=== PATIENT | male | born 1950 | race Caucasian/White ===

== ENCOUNTER 2018-08-04 15:14 | Emergency (ER) | payer MEDICARE ==
[~2018-08-04] VITALS: Ht 177.8 cm; Wt 99.8 kg
[~2018-08-04 15:14] MED LIST: BUSPAR10 MG PO; C-10001000 MG PO; CELEXA20 MG PO; CIPRO500 MG PO; FERROUS SULFAT325 MG PO; GLUCOPHAGE500 MG PO; LIPITOR40 MG PO; MS CONTIN30 MG PO; NEURONTIN 300300 MG PO; OXYCODONE HCL10 MG PO; PROMOD LIQUID P30 M1 PO; THERAGRAN M [BK1 TAB PO; VIC-FORTE CAPSUL1 MG PO; VITAMIN B-121000 MCG PO; ZINC-220220 MG PO; ZOFRAN ODT4 MG/UDTAB PO; ZOFRAN4 MG PO
[2018-08-04 15:18] VITALS: Ht 177.8 cm; Wt 99.8 kg
[2018-08-04] MEDS ORDERED: VIBRAMYCIN 100100 MG PO (17:59)
[2018-08-04] MEDS ORDERED: VOLTAREN75 MG PO (17:59)
[2018-08-04 19:25] VITALS: BP 105/74
== END 2018-08-04 18:10 ==
LOC: D.ER 15:14
DX: S91.111A Laceration without foreign body of right great toe without damage to nail, initial encounter (principal); W26.8XXA Contact with other sharp object(s), not elsewhere classified, initial encounter; Y93.89 Activity, other specified; Y92.019 Unspecified place in single-family (private) house as the place of occurrence of the external cause; E11.9 Type 2 diabetes mellitus without complications; F17.200 Nicotine dependence, unspecified, uncomplicated

== ENCOUNTER 2018-09-24 22:12 | Inpatient (IN) | payer OTHER ==
[~2018-09-24] VITALS: Ht 177.8 cm; Wt 113.4 kg
[~2018-09-24 22:12] MED LIST changes: +VIBRAMYCIN 100100 MG PO; +VOLTAREN75 MG PO
--- NOTE | 2018-09-24 22:50 | NUR ---
PATIENT HAS MULTIPLE DECUBITUS ULCERS ON THE SACRAL AREA. THE AREA DOES HAVE WOUND GAUZE IN PLACE.
--- NOTE | 2018-09-24 22:52 | NUR ---
FLUSHED CATHETER, FLUSHES EASILY, LEAKS AROUND THE CATHETER INSERTION AREA. DOES NOT DRAW BACK
[2018-09-24 23:30] VITALS: BP 110/69
[2018-09-24 23:39] LABS: HEMATOCRIT 33.6 % (42.0-54.0); HEMOGLOBIN 10.2 g/dL (13.5-17.5); LYMPHOCYTES 18.9 % (15-50); MCH 22.4 pg (26.0-34.0); MCHC 30.4 g/dL (31.0-37.0); MCV 73.7 fL (80.0-100.0); MEAN PLATELET VOLUME 8.4 fL (7.4-10.4); NEUTROPHILS 72.4 % (40-80); RBC 4.56 10x6/uL (4.20-6.10); RDW 16.8 % (11.5-14.5); WBC 12.1 10x3/uL (4.8-10.8)
[2018-09-24 23:40] LABS: PLATELET COUNT 343 10x3/uL (130-400)
[2018-09-24 23:52] LABS: ALBUMIN 2.2 g/dL (3.4-5.0); ALKALINE PHOSPHATASE 86 U/L (46-116); ALT (SGPT) 16 U/L (10-68); BILIRUBIN - TOTAL 0.16 mg/dL (0.2-1.3); CALC OSMOLALITY 284 mosm/kg (275-300); CALCIUM 7.9 mg/dL (8.5-10.1); CARBON DIOXIDE 27.5 mmol/L (21.0-32.0); CHLORIDE - SERUM 103 mmol/L (98-107); CREATININE - SERUM 0.8 mg/dL (0.6-1.3); GLUCOSE 129 mg/dL (74-106); POTASSIUM - SERUM 4.1 mmol/L (3.5-5.1); PROTEIN - SERUM 6.7 g/dL (6.4-8.2); SODIUM 139 mmol/L (136-145); UREA NITROGEN 26 mg/dL (7-18); eGFR NON AFRICAN AMERICAN > 90 mL/min (90-120)
[2018-09-25] VITALS (9 sets, daily range): BP systolic 110–130; BP diastolic 64–81; BMI 35.9; BMI 35.8
--- NOTE | 2018-09-25 00:02 | NUR ---
PATIENT GIVEN MILK AND SANDWICH TRAY, LIGHTS DIMMED. NO OTHER NEEDS NOTED.
--- NOTE | 2018-09-25 01:00 | NUR ---
PATIENT IS AWAKE AND ALERT, HE ADJUST HIMSELF IN THE BED AND IS LYING ON HIS L SIDE AT THIS TIME. PATIENT UPDATED ON PLAN OF CARE AND DELAYS IN CARE. WILL CONTINUE TO MONITOR.
--- NOTE | 2018-09-25 02:00 | NUR ---
SPOKE WITH USMAN ZELAYA AT THE [facility] UPDATED ON PLAN OF CARE AND DELAYS IN CARE. CALL BACK NUMBER [phone]
--- NOTE | 2018-09-25 04:49 | NUR ---
REC'D FROM ER DEPT PER STRETCHER TO ROOM 2219 A 68 Y/O W/M PER SERVICES DR. SANTIAGO W/DX CATHETER MALFUNCTION ALLERGY=HYDROCONDONE/TYLENOL/CUCUMBER. IV PATENT LEFT AC SALINE LOCKED. BROWN TO BEDSIDE DRAINAGE COLOSTOMY INTACT WITH BROWN STOOL BAG WAS EMPTIED. LARGE 10X10 DECUB NOTED TO SACRUM/BUTTOCK AND SMALL PRESSURE SORE TO BOTTOM RT FOOT DRSG INTACT. ASSESSMENT PER ADMIT PACKET.
--- NOTE | 2018-09-25 06:32 | NUR ---
MEDS GIVEN PER FLOWSHEET. ZUEX=[id number] NO COVERAGE NEEDED.
--- NOTE | 2018-09-25 17:30 | NUR ---
PATIENT WITH NO NEEDS VOICED, OSTOMY CARE BEING PROVIDED BY CONDUIT INSTALLER ASSIGNED
--- NOTE | 2018-09-25 17:56 | MORECARE ---
CASE MANAGEMENT DISCHARGE SUMMARY PATIENT: CAROL PUCKETT UNIT: [id number] ADM DATE: 09/25/18 AGE: 68 : 48 SEX: M ROOM/BED: D.2219 AUTHOR: EDWAR STODDARD PHYSICIAN: REFERRING PHYSICIAN: ALBERTO SANTIAGO MD DATE OF SERVICE: 09/25/18 Discharge Plan Patient Name: CAROL PUCKETT Facility: [facility]:[place] : 1950 Planned Disposition: Anticipated Discharge Date: Discharge Date: Expected LOS: Initial Reviewer: [email or web address] Initial Review Date: 09/25/2018 Generated: 09/25/18 6:56 pm Comments DCP- Discharge Planning Updated by [email or web address]: Arianna Fraser on 09/25/18 4:[address] WHITT explained and copy given to patient Coverage Notice Reviewer: [id number] - Arianna Fraser Notice Issued Date-Time: 09/25/2018 17:45 Notice Type: Medicare Outpatient Observation Notice Notice Delivered To: Patient 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 History Name: Delivery Method: HAND - Hand Delivered Molly Days: Prior Verbal Notification: Recipient Understood Notice: Yes Recipient Signature: Yes Med Rec Note Co-signed by Attending: Coverage Notice Comment: Patient Name: CAROL PUCKETT Page 30140 at 1756 All edits/amendments must be made on the electronic document DICTATION DATE: 09/25/181755 SEISMIC SURVEY ASSISTANT: SIDDHARTHA 09/25/181755 RPT#: [id number] DC DATE: STATUS: ADM IN [facility] [address] [place] [address] END OF REPORT
--- NOTE | 2018-09-25 18:51 | NUR ---
CHANGED DRESSING TO PT SACRAL WOUNDS. WOUNDS ARE 5CM DEEP X 9CM LENGTH X 13CM WIDTH. CLEASENED AREA WITH WOUND CLEANNER, PAT DRY. THERE IS ESCAR PRESENT IN THE WOUND BED. WOUND EDGES AREA VERY PALE PINK-WHITE IN COLOR. DOES NOT APPEAR TO HAVE GOOD CIRCULATION TO THE AREA. PACKED WITH DAMP 4X4 IN NORMAL SALINE. COVERED WITH ABD PAD AND MEDIPORE TAPE. ENCOURAGED PT TO TURN FROM SIDE TO SIDE OFTEN POSSIBLE. PT ALSO HAS A SUPRA-PUBIC CATH THAT WAS REPLACED BY DR RUIZ TODAY. STILL EXPIERENCING LEAKING FROM AROUND THE CATH. CLEANED AREA WELL AND COVERED WITH ABD IN EFFORT TO KEEP SACRAL WOUNDS DRY. PT ALSO HAS A COLOSTOMY TO THE LLQ. CHANGED THE APPLIANCE TODAY. STOMA WNL. TOLERATED ALL CARE WELL, MINIMAL COMPLAINT OF ABD PAIN WHEN ROLLED ON SIDE. RELIEVED WHEN ROLLED BACK OVER. WILL CONTINUE TO MONITOR.
[2018-09-26 00:34] VITALS: BP 119/56
[2018-09-26 04:50] LABS: BASOPHILS 0.1 % (0-2); EOSINOPHILS 4.2 % (0-7); HEMATOCRIT 31.2 % (42.0-54.0); HEMOGLOBIN 9.1 g/dL (13.5-17.5); IMMATURE GRANULOCYTES 0.4 % (0-5); LYMPHOCYTES 17.5 % (15-50); MCH 21.6 pg (26.0-34.0); MCHC 29.2 g/dL (31.0-37.0); MCV 73.9 fL (80.0-100.0); MEAN PLATELET VOLUME 9.6 fL (7.4-10.4); MONOCYTES 7.8 % (2-11); PLATELET COUNT 314 10x3/uL (130-400); RBC 4.22 10x6/uL (4.20-6.10); RDW 17.7 % (11.5-14.5); WBC 11.2 10x3/uL (4.8-10.8)
[2018-09-26 05:02] LABS: CALC OSMOLALITY 280 mosm/kg (275-300); CALCIUM 7.5 mg/dL (8.5-10.1); CARBON DIOXIDE 25.3 mmol/L (21.0-32.0); CHLORIDE - SERUM 104 mmol/L (98-107); CREATININE - SERUM 0.7 mg/dL (0.6-1.3); GLUCOSE 102 mg/dL (74-106); POTASSIUM - SERUM 4.2 mmol/L (3.5-5.1); SODIUM 140 mmol/L (136-145); eGFR NON AFRICAN AMERICAN > 90 mL/min (90-120)
[2018-09-26 05:08] LABS: UREA NITROGEN 18 mg/dL (7-18)
[2018-09-26 09:13] VITALS: BP 100/54
[2018-09-26 09:49] VITALS: Ht 177.8 cm; Wt 113.4 kg
--- NOTE | 2018-09-26 10:47 | NUR ---
PT LYING IN BED, ASSISTED SEE WHEELER MADDY WITH TURNING PT TO LOOK AT WOUNDS ON BACKSIDE AND ON TOE, PT STATED THE WOINDS HAVE BEEN THERE A WHILE AND UNCERTAIN ON WHAT NH IS DOING FOR THEM, PT SP CATHETER IS ALSO LEAKING, CHANGED PT PADDING CONTINUE WITH PLAN OF CARE, PT VOICED NO NEEDS AT THIS TIME, CL IN REACH
[2018-09-26 15:16] VITALS: BP 100/54
[2018-09-26 17:52] VITALS: BP 116/57
--- NOTE | 2018-09-26 19:01 | NUR ---
PT LYING ON SIDE, CHANGED PT DRESSING ON BACKSIDE, PACKED WITH 4X4 AND MEPLIEX DRESSING OVER IT. PT STATED PAIN IS AT A 6 DECLINED PAIN MEDS AT THIS TIME, NO OTHER NEEDS VOICED, CONTINUE WITH CHAYITO OF CARE
[2018-09-26 20:00] VITALS: BP 107/55
[2018-09-27] VITALS (8 sets, daily range): BP systolic 109–157; BP diastolic 59–70
--- NOTE | 2018-09-27 06:41 | NUR ---
MEDS GIVEN PER MAR. NO CHANGES IN ASSESSMENT
--- NOTE | 2018-09-27 07:20 | NUR ---
PT RESTING IN BED, EYES OPEN. NO C/O PAIN. NO S/S OF ACUTE DISTRESS NOTED. PT PARAPLEGIC. PT ADMITTED WITH CATHETER MALFUNCTION. SUPRAPUBIC BROWN CATHETER PRESENT, LEAKING TUBE. IV TO LEFT AC, SITE PATENT WITHOUT REDNESS OR SWELLING. NS INFUSING @ 125. PT ACHS BLOOD SUGAR. STAGE 4 PRESSURE ULCER TO BUTTOCKS, BLACK ESCAR NOTED. STAGE 1-2 PRESSURE ULCER TO RIGHT FOOT, DRESSING CDI. PT DENIES ANYTHING FURTHER AT THIS TIME. CALL LIGHT IN REACH. WILL CONTINUE TO MONITOR.
--- NOTE | 2018-09-27 11:55 | NUR ---
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 Bone exposed. Foul odor. Edges have black stringy necrotic tissue. Pt is scheduled for OR debridement tomorrow (09/28) with Dr. Yung. Cleansed wound with wound final cleaner andpacked 4x4s moistened with normal saline into wound bed. Covered with dry 4x4s and ABD pad and secured with medipore tape. Right plantar foot has an open ulcer measuring 1.5cm x 2cm just under the great toe. It was cleansed and covered with dry dressing. Recommendations: -Daily dressing changes along with as needed if soiled/dislodged -Turn/reposition every 2 hours (side to side) -Bridge heels as prevention / heel protecters -Air overlay mattress PT has suprapubic cath, colostomy, DMII and paraplegia. Wound care will continue to monitor.
--- NOTE | 2018-09-27 12:34 | NUR ---
NUTRITION F/U DIABETIC DIET WITH 75% INTAKE BREAKFAST. WILL ADD GLUCERNA SHAKE TO BREAKFAST AND LUNCH MEALS. RD FOLLOWING
--- NOTE | 2018-09-27 12:38 | NUR ---
PT IS RESTING IN BED WITH EYES OPEN. RESPIRATIONS ARE EVEN AND UNLABORED. PT IS ON ROOM AIR. PT REPORTS PAIN 6/10 TO BILATERAL LOWER EXTREMITIES. PT WITH LLQ COLOSTOMY AND BROWN CATHETER DRAINING FREELY WITH LIGHT YELLOW FLUID NOTED IN COLLECTION BAG. SCDS ARE ON BILATERAL LOWER EXTREMITIES. PT DENIES FURTHER NEEDS AT THIS TIME. BED IS IN THE LOWEST POSITION. CALL LIGHT AND BEDSIDE TABLE ARE WITHIN REACH.
--- NOTE | 2018-09-27 19:00 | NUR ---
REPORT RECEIVED AND CARE OF PT ASSUMED. PT LYING IN LOW BUCIO'S POSITION WITH EYES CLOSED. IV IN LEFT AC PATENT WITH NS INFUSING AT 125 ML / HR. SUPRA PUBIC CATHETER DRAINING TO GRAVITY WITH YELLOW URINE IN COLLECTION BAG. WILL MONITOR FOR NEEDS.
--- NOTE | 2018-09-27 19:03 | NUR ---
PT RESTING IN BED, EYES OPEN. C/O PAIN, GAVE OXYCODONE 5MG FOR PAIN. NO S/S OF ACUTE DISTRESS NOTED. PT SPILLED COFFEE ON GOWN, THIS NURSE TRIED TO CHANGE PT'S GOWN, PT REFUSED. REPORTED TO ONCOMING NURSE. PT DENIES ANYTHING FURTHER AT THIS TIME. CALL LIGTH IN REACH. WILL CONTINUE TO MONITOR.
--- NOTE | 2018-09-27 20:08 | NUR ---
[facility] MEDICAITONS GIVEN. FSBS 158 THIS CHECK...HELD SLIDING SCALE. WILL MONITOR CLOSLEY FOR NEEDS.
--- NOTE | 2018-09-27 21:00 | NUR ---
COLLECTED URINE FROM BROWN TUBING AND DELIVERED TO LAB FOR ORDERED STUDIES.
[2018-09-27 21:15] LABS: APPEARANCE CLEAR (CLEAR); BILIRUBIN NEGATIVE (NEGATIVE); COLOR YELLOW (YELLOW); GLUCOSE NEGATIVE (NEGATIVE); KETONE NEGATIVE (NEGATIVE); NITRITE NEGATIVE (NEGATIVE); PROTEIN 1+ mg/dL (NEGATIVE); RED CELLS - URINE RARE /hpf (0-5); SPECIFIC GRAVITY 1.015 (1.005-1.020); UROBILINOGEN NORMAL (NORMAL); WHITE CELLS - URINE 0-5 /hpf (0-5)
--- NOTE | 2018-09-27 23:45 | NUR ---
CHANGED OSTOMY APPLIANCE. STOMA PINK AND MOIST.
--- NOTE | 2018-09-28 00:05 | NUR ---
PT BATHED AND ALL LINENS AND GOWN CHANGED.
--- NOTE | 2018-09-28 00:17 | NUR ---
GAVE OXY IR 5 MG PO PER REQUEST FOR PAIN AT LEVEL 7/10. WILL CONTINUE TO MONITOR FOR NEEDS.
[2018-09-28 03:38] VITALS: BP 82/55
--- NOTE | 2018-09-28 03:49 | NUR ---
PT CONSENTED FOR AM PROCEDURE. HIBACLENS BATH PERFORMED.
--- NOTE | 2018-09-28 07:00 | NUR ---
MORNING ASSESSMENT COMPLETE. PT LYING IN BED AAO X4 TO PERSON, PLACE, TIME, AND SITUATION. GOING FOR A WOUND DEBRIDEMENT TODAY. DENIES NEEDS AT THIS TIME. CL IN REACH. SIDES RAILS UP X3 FOR PATIENT SAFETY.
[2018-09-28 07:10] LABS: BASOPHILS 0.3 % (0-2); EOSINOPHILS 4.2 % (0-7); HEMATOCRIT 31.5 % (42.0-54.0); HEMOGLOBIN 9.4 g/dL (13.5-17.5); IMMATURE GRANULOCYTES 0.3 % (0-5); LYMPHOCYTES 17.4 % (15-50); MCHC 29.8 g/dL (31.0-37.0); MCV 73.6 fL (80.0-100.0); MEAN PLATELET VOLUME 8.9 fL (7.4-10.4); MONOCYTES 7.7 % (2-11); NEUTROPHILS 70.1 % (40-80); PLATELET COUNT 259 10x3/uL (130-400); RBC 4.28 10x6/uL (4.20-6.10); RDW 17.6 % (11.5-14.5); WBC 9.8 10x3/uL (4.8-10.8)
[2018-09-28 07:18] LABS: CALC OSMOLALITY 270 mosm/kg (275-300); CALCIUM 7.8 mg/dL (8.5-10.1); CARBON DIOXIDE 25.3 mmol/L (21.0-32.0); CHLORIDE - SERUM 100 mmol/L (98-107); CREATININE - SERUM 0.8 mg/dL (0.6-1.3); GLUCOSE 127 mg/dL (74-106); POTASSIUM - SERUM 3.9 mmol/L (3.5-5.1); SODIUM 135 mmol/L (136-145); UREA NITROGEN 11 mg/dL (7-18); eGFR NON AFRICAN AMERICAN > 90 mL/min (90-120)
[2018-09-28 09:07] VITALS: BP 100/49
[2018-09-28 13:53] VITALS: BP 108/68
--- NOTE | 2018-09-28 13:56 | MORECARE ---
CASE MANAGEMENT DISCHARGE SUMMARY PATIENT: CAROL PUCKETT UNIT: [id number] ADM DATE: 09/26/18 AGE: 68 : 48 SEX: M ROOM/BED: D.2219 AUTHOR: EDWAR STODDARD PHYSICIAN: REFERRING PHYSICIAN: ALBERTO SANTIAGO MD DATE OF SERVICE: 09/28/18 Discharge Plan Patient Name: CAROL PUCKETT Facility: [facility]:[place] : 1950 Planned Disposition: Nursing Facility TATE Cert Anticipated Discharge Date: Discharge Date: Expected LOS: Initial Reviewer: [email or web address] Initial Review Date: 09/25/2018 Generated: 09/28/18 2:56 pm DCP- Discharge Planning Updated by [email or web address]: Arianna Fraser on 09/25/18 4:[address] WHITT explained and copy given to patient Coverage Notice Reviewer: [id number] - Arianna Fraser Notice Issued Date-Time: 09/25/2018 17:45 Notice Type: Medicare Outpatient Observation Notice Notice Delivered To: Patient Relationship to Patient: Transplanter Orchid Name: Delivery Method: HAND - Hand Delivered Molly Days: Prior Verbal Notification: Recipient Understood Notice: Yes Recipient Signature: Yes Med Rec Note Co-signed by Attending: Coverage Notice Comment: Last DP export: 09/25/18 4:56 pm Patient Name: CAROL PUCKETT Page 50914 at 1356 All edits/amendments must be made on the electronic document DICTATION DATE: 09/28/18 1356 MANAGER PARK: SIDDHARTHA 09/28/18 1356 RPT#: [id number] DC DATE: STATUS: ADM IN [facility] [address] [place] [address] END OF REPORT
--- NOTE | 2018-09-28 14:04 | MORECARE ---
CASE MANAGEMENT DISCHARGE SUMMARY PATIENT: CAROL PUCKETT UNIT: [id number] ADM DATE: 09/26/18 AGE: 68 : 48 SEX: M ROOM/BED: D.2219 AUTHOR: EDWAR STODDARD PHYSICIAN: REFERRING PHYSICIAN: ALBERTO SANTIAGO MD DATE OF SERVICE: 09/28/18 Discharge Plan Patient Name: CAROL PUCKETT Facility: [facility]:[place] : 1950 Planned Disposition: Nursing Facility TATE Cert Anticipated Discharge Date: Discharge Date: Expected LOS: Initial Reviewer: [email or web address] Initial Review Date: 09/25/2018 Generated: 09/28/18 3:04 pm Comments DCP- Discharge Planning Updated by [email or web address]: Arianna Fraser on 09/28/18 1:[address] 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 The patient was in the OR when I went to assess His discharge needs. Will try to see again at a later date DCP- Discharge Planning Updated by [email or web address]: Arianna Fraser on 09/25/18 4:[address] WHITT explained and copy given to patient DCPIA - Discharge Planning Initial Assessment Updated by [email or web address]: Arianna Fraser on 09/28/18 1:58 pm * Is the patient Alert and Oriented? Yes * PCP [facility] * Pharmacy [facility] * Preadmission Environment [facility] * Facility [facility] * ADLs Independent * Additional services required to return to the preadmission environment? Yes * Can the patient safely return to the preadmission environment? Yes * Has this patient been hospitalized within the prior 30 days at any hospital? No Coverage Notice Reviewer: [id number] - Arianna Fraser Notice Issued Date-Time: 09/25/2018 17:45 Notice Type: Medicare Outpatient Observation Notice Notice Delivered To: Patient Relationship to Patient: Supervisor Assembly And Packing Name: Delivery Method: HAND - Hand Delivered Molly Days: Prior Verbal Notification: Recipient Understood Notice: Yes Recipient Signature: Yes Med Rec Note Co-signed by Attending: Coverage Notice Comment: Last DP export: 09/28/18 12:56 pm Patient Name: CAROL PUCKETT Page 17489 at 1404 All edits/amendments must be made on the electronic document DICTATION DATE: 09/28/181402 COMMERCIAL TRAILER TRUCK DRIVER: SIDDHARTHA 09/28/181402 RPT#: [id number] DC DATE: STATUS: ADM IN [facility] [address] [place] [address] END OF REPORT
[2018-09-28 15:28] VITALS: BP 105/63
[2018-09-28 16:00] VITALS: BP 99/65
--- NOTE | 2018-09-28 19:15 | NUR ---
RECEIVED CARE FROM DAY NURSE. LYING IN BED WATCHING TV. CALL LIGHT AT SIDE. NO NEEDS VOICED AT THIS TIME. SUPRA PUBIC BROWN TO GRAVITY. OSTOMY TO LEFT LOWER QUAD. HEEL PROTECTOR TO RIGHT FOOT. WOUND VAC TO SACRUM.
--- NOTE | 2018-09-28 19:50 | NUR ---
IV IN LEFT AC RED AND SWOLLEN. DC'D WITH TIP INTACT. ATTEMPTED TO RESITE X2 WITH NO SUCCESS. PER DAY SHIFT ATTEMPTED X3.
[2018-09-28 20:00] VITALS: BP 99/59
--- NOTE | 2018-09-28 22:30 | NUR ---
IV SITED TO LEFT WRIST X1 STICK WITH GOOD BLOOD RETURN NOTED. 22 GAUGE.
[2018-09-29] VITALS: BP 168/59; BP 97/61
[2018-09-29 03:00] VITALS: BP 95/56
--- NOTE | 2018-09-29 07:00 | NUR ---
REPORT RECIEVED ASSUMED CARE. PATIENT IN BED WITH IV INTACT. NO COMPLAINTS OR SIGNS OF DISTRESS. SCD ON AND WORKING. NO SKIN BREAKDOWN UNDER SCD. CALL LIGHT WITHIN REACH.
[2018-09-29 08:37] VITALS: BP 103/53
--- NOTE | 2018-09-29 10:15 | NUR ---
PATIENT RECIEVED BB FROM LENDING CONSULTANT. REPOSITIONED AND MOVED. IV INTACT. NO COMPLAINTS. CALL LIGHT WITHIN REACH.
[2018-09-29 12:30] VITALS: BP 90/55
--- NOTE | 2018-09-29 14:20 | NUR ---
PATIENT IN BED WITH IV INTACT, NO COMPLAINTS OR SIGNS OF DISTRESS. EYES CLOSED RESTING QUIETLY. CALL LIGHT WITHIN REACH.
[2018-09-29 16:50] VITALS: BP 95/55
--- NOTE | 2018-09-29 18:35 | NUR ---
PATIENT IN BED LAYING ON SIDE AT THIS TIME. IV INTACT. WOUND VAC INTACT. NO COMPLAINTS. CALL LIGHT WITHIN REACH.
--- NOTE | 2018-09-29 19:15 | NUR ---
RECEIVED CARE FROM DAY NURSE. LYING IN BED WITH EYES CLOSED. RESP EVEN AND UNALBORED. CALL LIGHT AT SIDE. IV INFUSING PER ORDER TO LEFT WRIST.
[2018-09-29 20:00] VITALS: BP 172/62
[2018-09-30] VITALS: BP 159/61
[2018-09-30 03:00] VITALS: BP 158/61
--- NOTE | 2018-09-30 03:00 | NUR ---
PT RESTING QUIETLY, EYES CLOSED. RESP UNLABORED. NO DISTRESS NOTED. AGREE WITH OPERATING ROOM NURSE'S ASSESSMENT, CONTINUE PLAN OF CARE.
[2018-09-30 06:39] LABS: BASOPHILS 0.1 % (0-2); CALC OSMOLALITY 278 mosm/kg (275-300); CALCIUM 7.3 mg/dL (8.5-10.1); CARBON DIOXIDE 23.3 mmol/L (21.0-32.0); CHLORIDE - SERUM 105 mmol/L (98-107); CREATININE - SERUM 0.8 mg/dL (0.6-1.3); EOSINOPHILS 5.1 % (0-7); GLUCOSE 116 mg/dL (74-106); IMMATURE GRANULOCYTES 0.2 % (0-5); LYMPHOCYTES 11.3 % (15-50); MCHC 29.6 g/dL (31.0-37.0); MCV 74.2 fL (80.0-100.0); MEAN PLATELET VOLUME 9.6 fL (7.4-10.4); MONOCYTES 6.1 % (2-11); NEUTROPHILS 77.2 % (40-80); POTASSIUM - SERUM 3.7 mmol/L (3.5-5.1); PRE-ALBUMIN 7.9 mg/dL (18.0-35.7); RBC 3.64 10x6/uL (4.20-6.10); RDW 17.8 % (11.5-14.5); SODIUM 140 mmol/L (136-145); UREA NITROGEN 10 mg/dL (7-18); eGFR NON AFRICAN AMERICAN > 90 mL/min (90-120)
[2018-09-30 06:42] LABS: PLATELET COUNT 328 10x3/uL (130-400); WBC 13.8 10x3/uL (4.8-10.8)
--- NOTE | 2018-09-30 08:05 | NUR ---
SITTING UP RIGHT IN BED, AWAKE AND ALERT, EVEN UNLABORED BREATHING, WOUND VAC PRESENT AND IN OPERATION, SCD'S ON AND IN OPERATION, DENIES ANY CURRENT NEEDS OR DISCOMFORTS, BED LOWERED AND LOCKED, CALL LIGHT WITHIN REACH. CPOC
--- NOTE | 2018-09-30 08:43 | NUR ---
PATINET RESTING IN BED, CL INREACH, SR UP, BED IN LOW POSITION
[2018-09-30 09:59] LABS: % SATURATION 7 % (15-55); IRON 14 ug/dl (35-150); TOTAL IRON BIND CAPACITY 194 ug/dl (260-445); UNSAT IRON BIND CAPACITY 180 ug/dl (150-375)
[2018-09-30 12:30] VITALS: BP 137/64
--- NOTE | 2018-09-30 13:52 | NUR ---
SUPRAPUBIC CATHETER DRESSING HAS BEEN CHANGED TWICE THIS SHIFT, CONTINUES TO LEAK AROUND INSERTION SITE.
--- NOTE | 2018-09-30 16:02 | NUR ---
APPLIED TWO LARGE TEGA DERMS TO COCCXY AREA D/T EXPOSED SKIN FROM WOUND VAC, CHANGED BED PADS, REPOSITIONED, BED LOWERED AND LOCKED CALL LIGHT WITHIN REACH. CPOC
--- NOTE | 2018-09-30 19:07 | NUR ---
LAYING ON RIGHT SIDE, BED CLEAN AND DRY, CHANGE COLOSTOMY, BED LOWERED AND LOCKED, CALL LIGHT WITHIN REACH. CPOC
--- NOTE | 2018-09-30 19:15 | NUR ---
RECEIVED CARE FROM DAY NURSE. LYING IN BED WITH EYES CLOSED. RESP EVEN AND UNLABORED. CALL LIGHT AT SIDE. IV INFUSING PER ORDER TO LEFT WRIST. SUPRA PUBIC CATH TO GRAVITY. OSTOMY TO LEFT LOWER QUAD. WOUND VAC IN PLACE TO SACRUM.
[2018-09-30 20:00] VITALS: BP 97/44
--- NOTE | 2018-09-30 20:40 | NUR ---
WOUND VAC COMING OFF WITH NO SPONGE COMPRESSION. WOUND VAC AND SPONGE REMOVED. NEW SPONGE AND DRAIN APPLIED. URINE STILL LEAKING FROM SUPRA PUBIC CATH. BED AND GOWN CHANGE COMPLETED.
--- NOTE | 2018-09-30 23:30 | NUR ---
PLACED ON CPAP BY RT AT THIS TIME.
[2018-10-01] VITALS: BP 136/59
--- NOTE | 2018-10-01 00:30 | NUR ---
WOUND VAC WITH LEAK ALARM. HOLE IN CLEAR DRESSING NOTED. HOLE COVERED WITH LARGE OP SITE AND LEAK ALARM CLEARED.
--- NOTE | 2018-10-01 02:06 | NUR ---
PT LYING IN BED WATCHING TV. REINFORCED WOUND VAC DRESSING. NO OTHER NEEDS. AGREE WITH RFID SYSTEMS ENGINEER'S ASSESSMENT, CONTINUE PLAN OF CARE.
--- NOTE | 2018-10-01 02:43 | NUR ---
WHILE FIXING LEAK ALARM PT COUGHED. SMALL AMOUNT OF YELLOW/BROWN DRAINAGE CAME OUT OF ANUS. NOTED ON PREVIOUS WOUND VAC CHANGE AT MOST INFERIOR PART OF DRESSING A QUARTER SIZE AMOUNT OF THE SAME COLOR DRAINAGE WAS FOUND.
[2018-10-01 04:00] VITALS: BP 126/53
--- NOTE | 2018-10-01 06:00 | NUR ---
SPOKE WITH HS ABOUT LEAKAGE FROM PT'S ANUS. REPORTS NO CALL NEEDED AT THIS TIME.
[2018-10-01 06:33] LABS: BASOPHILS 0.1 % (0-2); EOSINOPHILS 3.5 % (0-7); HEMATOCRIT 27.3 % (42.0-54.0); IMMATURE GRANULOCYTES 0.3 % (0-5); LYMPHOCYTES 7.1 % (15-50); MCH 21.7 pg (26.0-34.0); MCHC 29.3 g/dL (31.0-37.0); MEAN PLATELET VOLUME 9.6 fL (7.4-10.4); MONOCYTES 6.6 % (2-11); NEUTROPHILS 82.4 % (40-80); PLATELET COUNT 343 10x3/uL (130-400); RBC 3.69 10x6/uL (4.20-6.10); RDW 17.8 % (11.5-14.5); WBC 16.1 10x3/uL (4.8-10.8)
[2018-10-01 06:50] LABS: CALC OSMOLALITY 281 mosm/kg (275-300); CALCIUM 7.4 mg/dL (8.5-10.1); CARBON DIOXIDE 24.8 mmol/L (21.0-32.0); CHLORIDE - SERUM 107 mmol/L (98-107); CREATININE - SERUM 0.6 mg/dL (0.6-1.3); GLUCOSE 141 mg/dL (74-106); SODIUM 141 mmol/L (136-145); UREA NITROGEN 11 mg/dL (7-18); eGFR NON AFRICAN AMERICAN > 90 mL/min (90-120)
--- NOTE | 2018-10-01 07:08 | NUR ---
PT LYING IN BED WITH EYES CLOSED. OPENS EYES WITH NAME CALLED. NO ACUTE DISTRESS NOTED. IV TO LEFT WRIST WITH NS @ 125 ML/HR INFUSING VIA PUMP. SITE WITHOUT REDNESS OR EDEMA. F/C PATENT TO GRAVITY, DRAINING YELLOW URINE. NO COMPLAINTS OF PAIN AT THIS TIME. CL WITHIN REACH. ENCOURAGED TO CALL WITH NEEDS. WILL CONTINUE TO MONITOR.
[2018-10-01 08:03] VITALS: BP 102/61
--- NOTE | 2018-10-01 09:45 | NUR ---
PT LYING IN BED ON BACKSIDE, ASSISTED PT UP FOR BREAKFAST, NO S/S OF DISTREWSS, BED IN LOW POSITION, CL IN REACH CONTINUE WITH PLAN OF CARE
--- NOTE | 2018-10-01 11:39 | NUR ---
PT IV INFILTRATED, ATTEMPTED TO RESITE PT AND VEIN BLEW, ASKED COWORKER TO RESITE PT AND WAS ADVISED UNABLE TO. WILL CALL HEIDI VASCULAR ACCESS NURSE TO ATTEMPT TO RESITE PT
--- NOTE | 2018-10-01 11:51 | NUR ---
Wound vac dressing was changed last shift due to leaking under drape. Site was assessed and new dressing intact. Wound care will continue monitoring.
[2018-10-01 12:08] VITALS: BP 102/59
--- NOTE | 2018-10-01 15:01 | NUR ---
NUTRITION F/U PT TOLERATING DIABETIC DIET. ~50% INTAKE RECENT MEALS. WILL CONTINUE TO PROVIDE DIET, MONITOR PO INTAKE. RD FOLLOWING
[2018-10-01 16:27] VITALS: BP 104/60
--- NOTE | 2018-10-01 20:00 | NUR ---
ASSESSMENT PER FLOWSHEET. WOUND VAC TO BUTTOCK AREA INTACT. BROWN TO BEDSIDE DRAINAGE. NO IV RESITED IV TO RT WRIST AREA 22G X1 ATTEMPT. RESUMED IV FLUIDS OF NS AT 125CC'S/HR
[2018-10-01 20:55] VITALS: BP 130/67
--- NOTE | 2018-10-01 21:00 | NUR ---
MEDS GIVEN PER MAR. JRFY=[id number]. NO COVERAGE NEEDED. PATIENT PULLS OUT IV WITH TIP INTACT. UNABLE TO RESITE IV.
--- NOTE | 2018-10-02 | NUR ---
EYES CLOSED RESPIRATIONS WITH EASE AND UNLABORED.
[2018-10-02 02:14] VITALS: BP 105/60
[2018-10-02 04:32] VITALS: BP 108/70
[2018-10-02 05:56] LABS: BASOPHILS 0.1 % (0-2); EOSINOPHILS 4.9 % (0-7); HEMATOCRIT 24.8 % (42.0-54.0); IMMATURE GRANULOCYTES 0.3 % (0-5); MCH 21.8 pg (26.0-34.0); MCHC 29.8 g/dL (31.0-37.0); MCV 73.2 fL (80.0-100.0); MEAN PLATELET VOLUME 9.5 fL (7.4-10.4); MONOCYTES 7.3 % (2-11); NEUTROPHILS 75.4 % (40-80); PLATELET COUNT 364 10x3/uL (130-400); RBC 3.39 10x6/uL (4.20-6.10); RDW 17.9 % (11.5-14.5)
--- NOTE | 2018-10-02 06:13 | NUR ---
MEDS PER OCT. GXPB=[phone] NO COVERAGE
[2018-10-02 06:17] LABS: CALC OSMOLALITY 281 mosm/kg (275-300); CALCIUM 7.4 mg/dL (8.5-10.1); CARBON DIOXIDE 24.6 mmol/L (21.0-32.0); CHLORIDE - SERUM 107 mmol/L (98-107); CREATININE - SERUM 0.7 mg/dL (0.6-1.3); GLUCOSE 104 mg/dL (74-106); POTASSIUM - SERUM 3.7 mmol/L (3.5-5.1); SODIUM 142 mmol/L (136-145); UREA NITROGEN 9 mg/dL (7-18); eGFR NON AFRICAN AMERICAN > 90 mL/min (90-120)
[2018-10-02 06:19] LABS: HEMOGLOBIN 7.4 g/dL (13.5-17.5)
[2018-10-02 07:28] LABS: FOLATE (FOLIC ACID) - SERUM 13.3 ng/mL (>3.0)
[2018-10-02 09:38] VITALS: BP 110/66
--- NOTE | 2018-10-02 10:29 | NUR ---
STARTED PT BLOOD TRANSFUSION, CHANGED PT COLOSTOMY BAG AND COLLECTED STOOL SAMPLE FOR OCCULT BLOOD TEST. NO OTHER NEEDS VPOICED, CONTINUE WIHT PLAN OF CARE
[2018-10-02 12:04] VITALS: BP 143/70
--- NOTE | 2018-10-02 16:47 | NUR ---
PT LYING ON LEFT SIDE, ASKED FOR PAIN MEDICATION WHEN I CAME TO ADMNINISTER SCHEDULED MEDS, ADMINISTERED PRN PAIN MEDS WELL, NO OTHER NEEDS VOICED AT THIS TIME, SECOND UNIT OF BLOOD COMPLETED
[2018-10-02 17:24] VITALS: BP 117/58
--- NOTE | 2018-10-02 20:00 | NUR ---
ASSESSMENT PER FLOWSHEET. IV PATENT RT WRIST OF NS AT 100CC'S/HR SITE CLEAR. SR UP X2 CALL LIGHT WITHIN REACH WOUND VAC TO BUTTOCK IN PLACE. DRSG TO RT FOTT C/D/I. BROWN TO BEDSIDE DRAINAGE. COLOSTOMY NOTED.
--- NOTE | 2018-10-02 20:06 | NUR ---
PT IS RESTING IN BED WITH EYES OPEN. RESPIRATIONS ARE EVEN AND UNLABORED. BROWN IS DRAINING FREELY. BED IS IN THE LOWEST POSITION CALL LIGHT AND BEDSIDE TABLE ARE WITHIN REACH. PT DENIES PRESENCE OF PAIN AND N/V AT THIS TIME. PT DENIES FURTHER NEEDS
[2018-10-02 21:09] VITALS: BP 112/62
--- NOTE | 2018-10-02 21:15 | NUR ---
MEDS GIVEN PER MAR. WECP=[phone].NO COVERAGE NEEDED.
--- NOTE | 2018-10-03 00:03 | NUR ---
MOE AT THIS TIME. SR UP X2 CALL LIGHT WITHIN REACH WOUND VAC OPATENT TO BUTTOCK.
[2018-10-03 01:03] VITALS: BP 124/60
[2018-10-03 04:48] VITALS: BP 116/64
--- NOTE | 2018-10-03 05:00 | NUR ---
PULLS OFF COLOSTOMY BAG WITH STOOL NOTED ON SELF. NEW COLOSTOMY APPLIANCE APPLIED AND COMPLETE BED BATH WITH LINENS CHANGED.REPOSITIONED IN BED. IV BEEPING SALINE LOCKED IV.
--- NOTE | 2018-10-03 09:00 | NUR ---
ADMINISTERED PT MEDS TIS MORNING AT 0730, CAME BACK IN TO START PT MERREM AND NOTICED WOUND VAC WAS TURNED OFF, TURNED WOUND VAC BACK ON AND MACHINE STATED LEAK NOTED, CALLED WOUND CARE NURSE AND ADVISED OF FINDING AND ASKED IF I NEEDED TO REINFORCE OR IF SHE WOULD BE IN SOON TO CHANGE. PER NURSE SHE STATED SHE WILL JUST CHANGE IT SHORTLY, PT LYING IN BED NO NEEDS VOICED, CONTINUE WITH PLAN OF CARE
[2018-10-03 10:25] VITALS: BP 147/77
--- NOTE | 2018-10-03 11:30 | NUR ---
ASSISTED WOUND CARE NURSE WITH PLACING PT WOUND VAC BACK ON . BED IN LOS POSITION, CL IN REACH CONTINUE WITH PLAN OF CARE
[2018-10-03 13:06] LABS: BASOPHILS 0.3 % (0-2); EOSINOPHILS 3.2 % (0-7); IMMATURE GRANULOCYTES 0.3 % (0-5); LYMPHOCYTES 11.1 % (15-50); MCH 23.3 pg (26.0-34.0); MCHC 31.3 g/dL (31.0-37.0); MCV 74.5 fL (80.0-100.0); MEAN PLATELET VOLUME 9.2 fL (7.4-10.4); MONOCYTES 7.6 % (2-11); NEUTROPHILS 77.5 % (40-80); PLATELET COUNT 359 10x3/uL (130-400); RDW 18.3 % (11.5-14.5)
[2018-10-03 13:09] LABS: HEMATOCRIT 31.6 % (42.0-54.0); HEMOGLOBIN 9.9 g/dL (13.5-17.5); RBC 4.24 10x6/uL (4.20-6.10); WBC 11.1 10x3/uL (4.8-10.8)
[2018-10-03 13:20] LABS: ALBUMIN 1.8 g/dL (3.4-5.0); ALKALINE PHOSPHATASE 67 U/L (46-116); ALT (SGPT) 12 U/L (10-68); BILIRUBIN - TOTAL 0.33 mg/dL (0.2-1.3); CALC OSMOLALITY 277 mosm/kg (275-300); CALCIUM 7.5 mg/dL (8.5-10.1); CHLORIDE - SERUM 105 mmol/L (98-107); CREATININE - SERUM 0.7 mg/dL (0.6-1.3); GLUCOSE 103 mg/dL (74-106); POTASSIUM - SERUM 3.6 mmol/L (3.5-5.1); PROTEIN - SERUM 5.8 g/dL (6.4-8.2); SODIUM 140 mmol/L (136-145); UREA NITROGEN 9 mg/dL (7-18); eGFR NON AFRICAN AMERICAN > 90 mL/min (90-120)
--- NOTE | 2018-10-03 14:45 | NUR ---
Wound vac dressing change: Sacrum/coccyx: Surgically debrided pressure injury 12cm x 15cm x 2.5cm x 3cm from 12-12 oclock Bone can be tapped. Moderate amount of seropurulent drainage with odor. Wound bed is pale pink - edges are intact - periwound has no redness/edema -125mmhg moderate continuous Used 1 black sponge to wound bed + 1 black sponge for pigtail + 1 for TRAC pad Pt tolerated well.
--- NOTE | 2018-10-03 16:30 | NUR ---
PT IS RESTING IN BED WITH EYES OPEN. RESPIRATIONS ARE EVEN AND UNLABORED. WOUND VAC NOTED WITH DARK BROWN DRAINAGE IN COLLECTION CHAMBER. BROWN CATHETER DRAINING FREELY WITH CLEAR YELLOW URINE NOTED IN COLLECTION BAG. PT REPORTS PAIN IN THE LOWER EXTREMITIES AND RATES 5/10 BUT DENIES NEEDS AT THIS TIME. SCD TO LEFT LOWER EXTREMITY AND HEEL PROTECTOR TO RIGHT FOOT. BED IS IN THE LOWEST POSITION. CALL LIGHT AND BEDSIDE TABLE ARE WITHIN REACH. WILL INFORM NURSE OF PAIN LEVEL.
[2018-10-03 16:40] VITALS: BP 137/72
--- NOTE | 2018-10-03 20:00 | NUR ---
ASSESSMENT PER FLOWSHEET. IV SALINE LOCKED RT WRIST. BROWN TO BEDSIDE DRAINAGE WITH MELI COLORED URINE. WOUND VAC IN PLACE. AND SECURE. COLOSTOMY IN PLACE. SR UP X2 CALL LIGHT WITHIN REACH.
--- NOTE | 2018-10-03 21:00 | NUR ---
MEDS GIVEN PER MAR. PFNE=[phone] NO COVERAGE NEEDED.
[2018-10-03 21:07] VITALS: BP 103/57
--- NOTE | 2018-10-04 | NUR ---
PT AWAKE IV SALINE LOCKED.
--- NOTE | 2018-10-04 02:30 | NUR ---
PT PULLS OUT IV. IV REMAINS OUT.
[2018-10-04 04:00] VITALS: BP 170/56
[2018-10-04 04:52] LABS: BASOPHILS 0.3 % (0-2); EOSINOPHILS 6.3 % (0-7); HEMATOCRIT 31.3 % (42.0-54.0); HEMOGLOBIN 9.6 g/dL (13.5-17.5); IMMATURE GRANULOCYTES 0.3 % (0-5); LYMPHOCYTES 16.3 % (15-50); MCHC 30.7 g/dL (31.0-37.0); MCV 74.9 fL (80.0-100.0); MEAN PLATELET VOLUME 9.4 fL (7.4-10.4); MONOCYTES 8.2 % (2-11); NEUTROPHILS 68.6 % (40-80); PLATELET COUNT 397 10x3/uL (130-400); RBC 4.18 10x6/uL (4.20-6.10); RDW 18.6 % (11.5-14.5); WBC 9.4 10x3/uL (4.8-10.8)
--- NOTE | 2018-10-04 05:00 | NUR ---
RESTING QUIETLY NO CHANGES IN ASSESSMENT.
[2018-10-04 05:01] LABS: CALC OSMOLALITY 277 mosm/kg (275-300); CALCIUM 7.3 mg/dL (8.5-10.1); CARBON DIOXIDE 27.7 mmol/L (21.0-32.0); CHLORIDE - SERUM 105 mmol/L (98-107); CREATININE - SERUM 0.7 mg/dL (0.6-1.3); GLUCOSE 104 mg/dL (74-106); POTASSIUM - SERUM 3.7 mmol/L (3.5-5.1); SODIUM 140 mmol/L (136-145); UREA NITROGEN 9 mg/dL (7-18); eGFR NON AFRICAN AMERICAN > 90 mL/min (90-120)
--- NOTE | 2018-10-04 07:40 | NUR ---
PT RESTING IN BED, EYES OPEN. NO C/O PAIN. NO S/S OF ACUTE DISTRESS NOTED. PT FROM THE [facility]. SCD TO LEFT LEG, BLUE BOOT TO RIGHT FOOT. PT ADMITTED WITH BROWN CATHETER PRESENT ALREADY. WOUND VAC TO COCCYX. COLOSTOMY TO LEFT UPPER ABDOMEN. PT REFUSING TO LET THIS NURSE RESITE IV THAT HE PULLED OUT. PT STATED, I DO NOT NEED IT. PT HAS IV ANTIBIOTICS SCHEDULED. PT ACHS. PT DENIES ANYTHING FURTHER AT THIS TIME. CALL LIGHT IN REACH. WILL CONTINUE TO MONITOR.
[2018-10-04 08:38] VITALS: BP 114/64
[2018-10-04 16:30] VITALS: BP 114/72
--- NOTE | 2018-10-04 19:00 | NUR ---
SPARERIBS TRIMMER COMPLETE. PT LYING IN BED RESTING QUIETLY. NO SIGNS OF DISTRESS NOTED
--- NOTE | 2018-10-04 19:00 | NUR ---
PT RESTING IN BED, EYES CLOSED. RESPIRATIONS EVEN AND UNLABORED. NO C/O PAIN. NO S/S OF ACUTE DISTRESS NOTED. CALL LIGHT IN REACH. WILL CONTINUE TO MONITOR.
[2018-10-04 20:00] VITALS: BP 105/66
[2018-10-05] VITALS: BP 129/63
--- NOTE | 2018-10-05 03:00 | NUR ---
COMPUTER FIELD TECHNICIAN GIVING BATH. WOUND VAC LEAK ALARM SOUNDING. TRIMMED AWAY OLD DRESSING AND REINFORCED WITH NEW. RESUMED POWER, NO LEAKS DETECTED. NO OTHER NEEDS. WILL CONTINUE TO MONITOR.
--- NOTE | 2018-10-05 07:40 | NUR ---
PT LAYING IN BED RESTING WITH EYES OPEN. RESPIRATIONS EVEN AND UNLABORED, NO S/S OF DISTRESS NOTED. PT IS ON ROOM AIR. RIGHT MIDLINE IV INFUSING, NO REDNESS OR EDEMA NOTED. PT HAS A SUPRAPUBIC CATHETER, YELLOW URINE NOTED. CATHETER LEAKING A BIT. COLOSTOMY BAG NOTED, NO OUTPUT AT THIS TIME. STAGE 4 COCCYX WOUND NOTED, WOUND VAC IN PLACE, DRESSING CDI. DRESSING TO RIGHT FOOT, CDI. DENIES NEEDS AT THIS TIME. BED LOW AND LOCKED, SR UP X2, CL IN EASY REACH. WILL CONTINUE TO MONITOR.
[2018-10-05] MEDS ORDERED: MERREM 1 GM/NS 11 G1 IV (07:58)
[2018-10-05] MEDS ORDERED: FERROUS SULFAT325 MG PO (07:59)
[2018-10-05 09:02] VITALS: BP 122/68
--- NOTE | 2018-10-05 09:24 | MORECARE ---
CASE MANAGEMENT DISCHARGE SUMMARY PATIENT: CAROL PUCKETT UNIT: [id number] ADM DATE: 09/26/18 AGE: 68 : 48 SEX: M ROOM/BED: D.2219 AUTHOR: EDWAR STODDARD PHYSICIAN: REFERRING PHYSICIAN: ALBERTO SANTIAGO MD DATE OF SERVICE: 10/05/18 Discharge Plan Patient Name: CAROL PUCKETT Facility: [facility]:[place] : 1950 Planned Disposition: Nursing Facility TATE Cert Anticipated Discharge Date: Discharge Date: Expected LOS: Initial Reviewer: [email or web address] Initial Review Date: 09/25/2018 Generated: 10/05/18 10:24 am Comments DCP- Discharge Planning Updated by [email or web address]: Arianna Fraser on 10/05/18 8:[address] PATIENT WILL BE DISCHARGING TO THE [facility] TODAY VIA EMS TO A SKILLED BED, HE WILL GO TO THE [facility]. NURSE WILL CALL REPORT. CM WILL CONTINUE TO FOLLOW AND ASSIST WITH DC PLANNING NEEDS DCP- Discharge Planning Updated by [email or web address]: Arianna Fraser on 09/28/18 1:[address] Patient is a senior care resident at the [facility]. 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 The patient was in the OR when I went to assess His discharge needs. Will try to see again at a later date DCP- Discharge Planning Updated by [email or web address]: Arianna Fraser on 09/25/18 4:[address] WHITT explained and copy given to patient DCPIA - Discharge Planning Initial Assessment Updated by [email or web address]: Arianna Fraser on 09/28/18 1:58 pm * Is the patient Alert and Oriented? 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 Yes * Can the patient safely return to the preadmission environment? Yes * Has this patient been hospitalized within the prior 30 days at any hospital? No Coverage Notice Reviewer: [id number] - Arianna Fraser Notice Issued Date-Time: 09/25/2018 17:45 Notice Type: Medicare Outpatient Observation Notice Notice Delivered To: Patient Relationship to Patient: Foxing Cutting Machine Operator Name: Delivery Method: HAND - Hand Delivered Molly Days: Prior Verbal Notification: Recipient Understood Notice: Yes Recipient Signature: Yes Med Rec Note Co-signed by Attending: Coverage Notice Comment: Last DP export: 09/28/18 1:04 pm Patient Name: CAROL PUCKETT Page 16512 at 0924 All edits/amendments must be made on the electronic document DICTATION DATE: 10/05/18922 SUPERVISOR WOUND: SIDDHARTHA 10/05/18922 RPT#: [id number] DC DATE: STATUS: ADM IN [facility] [address] [place] [address] END OF REPORT
--- NOTE | 2018-10-05 10:43 | MORECARE ---
CASE MANAGEMENT DISCHARGE SUMMARY PATIENT: CAROL PUCKETT UNIT: [id number] ADM DATE: 09/26/18 AGE: 68 : 48 SEX: M ROOM/BED: D.2219 AUTHOR: ARLYNDOC PHYSICIAN: REFERRING PHYSICIAN: ALBERTO SANTIAGO MD DATE OF SERVICE: 10/05/18 Discharge Plan Patient Name: CAROL PUCKETT Facility: [facility]:[place] : 1950 Planned Disposition: Nursing Facility TATE Cert Anticipated Discharge Date: Discharge Date: Expected LOS: Initial Reviewer: [email or web address] Initial Review Date: 09/25/2018 Generated: 10/05/18 11:43 am Comments DCP- Discharge Planning Updated by [email or web address]: Arianna Fraser on 10/05/18 8:[address] PATIENT WILL BE DISCHARGING TO THE [facility] TODAY VIA EMS TO A SKILLED BED, HE WILL GO TO THE [facility]. NURSE WILL CALL REPORT. CM WILL CONTINUE TO FOLLOW AND ASSIST WITH DC PLANNING NEEDS DCP- Discharge Planning Updated by [email or web address]: Arianna Fraser on 09/28/18 1:[address] Patient is a shelter resident at the [facility]. 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 The patient was in the OR when I went to assess His discharge needs. Will try to see again at a later date DCP- Discharge Planning Updated by [email or web address]: Arianna Fraser on 09/25/18 4:[address] WHITT explained and copy given to patient DCPIA - Discharge Planning Initial Assessment Updated by [email or web address]: Arianna Fraser on 09/28/18 1:58 pm * Is the patient Alert and Oriented? Yes * PCP The [facility] * Pharmacy 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 Yes * Can the patient safely return to the preadmission environment? Yes * Has this patient been hospitalized within the prior 30 days at any hospital? No External Providers External Provider: [facility] Next Contact Date: Service Request Date: Service Type: Resolution: Reviewer: Comments: Coverage Notice Reviewer: [id number] - Arianna Fraser Notice Issued Date-Time: 09/25/2018 17:45 Notice Type: Medicare Outpatient Observation Notice Notice Delivered To: Patient Relationship to Patient: Garment Fitter Name: Delivery Method: HAND - Hand Delivered Molly Days: Prior Verbal Notification: Recipient Understood Notice: Yes Recipient Signature: Yes Med Rec Note Co-signed by Attending: Coverage Notice Comment: Last DP export: 10/05/18 8:24 a Patient Name: CAROL PUCKETT Page 52375 at 1043 All edits/amendments must be made on the electronic document DICTATION DATE: 10/05/18 1042 SUPERVISOR OPERATIONS: SIDDHARTHA 10/05/18 1042 RPT#: [id number] DC DATE: STATUS: ADM IN [facility] [address] [place] [address] END OF REPORT
--- NOTE | 2018-10-05 14:05 | NUR ---
PT DISCHARGE INFORMATION PROVIDED TO PT, ALLOWED TIME FOR QUESTIONS. QUESTIONS ANSWERED APPROPRIATELY. PT VERBALIZED UNDERSTANDING AND SIGNED PAPERWORK. DISCHARGE EDUCATION PROVIDED UPON DISCHARGE. PT SENT WITH AMBULANCE STAFF TO [facility]. REPORT CALLED TO GLORY. PT DISCHARGED AT 1400
--- NOTE | 2018-10-05 14:46 | MORECARE ---
CASE MANAGEMENT DISCHARGE SUMMARY PATIENT: CAROL PUCKETT UNIT: [id number] ADM DATE: 09/26/18 AGE: 68 : 48 SEX: M ROOM/BED: D.2219 AUTHOR: ARLYNDOC PHYSICIAN: REFERRING PHYSICIAN: ALBERTO SANTIAGO MD DATE OF SERVICE: 10/05/18 Discharge Plan Patient Name: CAROL PUCKETT Facility: [facility]:[place] : 1950 Planned Disposition: Nursing Facility TATE Cert Anticipated Discharge Date: Discharge Date: 10/05/2018 Expected LOS: 0 Initial Reviewer: [email or web address] Initial Review Date: 09/25/2018 Generated: 10/05/18 3:46 pm Comments DCP- Discharge Planning Updated by [email or web address]: Arianna Fraser on 10/05/18 8:[address] PATIENT WILL BE DISCHARGING TO THE [facility] TODAY VIA EMS TO A SKILLED BED, HE WILL GO TO THE [facility]. NURSE WILL CALL REPORT. CM WILL CONTINUE TO FOLLOW AND ASSIST WITH DC PLANNING NEEDS DCP- Discharge Planning Updated by [email or web address]: Arianna Fraser on 09/28/18 1:[address] Patient is a senior care resident at the [facility]. 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 The patient was in the OR when I went to assess His discharge needs. Will try to see again at a later date DCP- Discharge Planning Updated by [email or web address]: Arianna Fraser on 09/25/18 4:[address] WHITT explained and copy given to patient DCPIA - Discharge Planning Initial Assessment Updated by [email or web address]: Arianna Fraser on 09/28/18 1:58 pm * Is the patient Alert and Oriented? Yes * PCP [facility] * Pharmacy [facility] * Preadmission Environment [facility] * Facility Name the [facility] * ADLs Independent * Additional services required to return to the preadmission environment? Yes * Can the patient safely return to the preadmission environment? Yes * Has this patient been hospitalized within the prior 30 days at any hospital? No Coverage Notice Reviewer: [id number] - Arianna Fraser Notice Issued Date-Time: 09/25/2018 17:45 Notice Type: Medicare Outpatient Observation Notice Notice Delivered To: Patient Relationship to Patient: Cylinder Head Assembler Name: Delivery Method: HAND - Hand Delivered Molly Days: Prior Verbal Notification: Recipient Understood Notice: Yes Recipient Signature: Yes Med Rec Note Co-signed by Attending: Coverage Notice Comment: Last DP export: 10/05/18 9:43 a Patient Name: CAROL PUCKETT Page [phone] at 1446 All edits/amendments must be made on the electronic document DICTATION DATE: 10/05/181444 WARES SORTER: SIDDHARTHA 10/05/18 1445 RPT#: [id number] DC DATE:10/05/18 STATUS: DIS IN [facility] [address] [place] [address] END OF REPORT
--- NOTE | 2018-10-10 11:00 | OP ---
PATIENT NAME: CAROL PUCKETT MEDICAL RECORD: [id number] :46 LOCATION:D.MS [address]2219 ADMISSION DATE:09/26/18 SURGEON: JAY CHEN MD DATE OF OPERATION: 09/28/2018 PREOPERATIVE DIAGNOSIS: Large stage IV decubitus ulcer. Please see dimensions below. POSTOPERATIVE DIAGNOSIS: Large stage IV decubitus ulcer. Please see dimensions below. PROCEDURES: 1. Excisional debridement of large sacral decubitus ulcer, stage IV. Dimensions of the ulcer were 1.8 cm in depth. The cephalad-caudad dimension was 12.0 cm and the medial-lateral dimension was 14.5 cm. The excised defect measured 2.0 cm in depth, the cephalad-caudad dimension was 14.5 cm and the lateral dimension was 16.5 cm. This was a sharp debridement back to viable tissue. 2. Placement of wound VAC. SURGEON: Jay Chen MD SHEETER HELPER: None. BLOOD LOSS: 100 cc. ANESTHESIA: General. COMPLICATIONS: None. This was a stage IV cavitary decubitus ulcer. The debrided tissues included skin, subcutaneous tissue, granulation tissue, periosteum of the sacrum as well as necrotic fascia, and some necrotic muscle as well. I noted no definite evidence of osteomyelitis. There was no exposed bone and no fragmented bone. OPERATIVE COURSE: The patient was conveyed to the operating room electively on 09/28/2018. General anesthesia was induced by the anesthesia staff. The patient was placed in the prone position. The buttocks, the lower back, and back were sterilely prepped and draped. The patient has been diverted through a colostomy in order to ensure that he does not have a bowel movement which could contaminate the wound; and the fact that people with diversion will occasionally still have a small bowel movement, I evacuated the patient's lower rectum manually. This area was then reprepped. I then performed a sharp excisional debridement with a scalpel. Hemostasis was achieved with the electrocautery. The debrided tissues are listed above. I debrided back to healthy viable tissue. Cultures were obtained. I irrigated with hydrogen peroxide. Dimensions were obtained prior to the debridement as well as after the debridement. I then cut a wound VAC sponge to size of defect. Cellophane-type dressings were applied over the wound VAC sponge. I then scored the cellophane-type dressings OPERATIVE REPORT [id number] CAROL PUCKETT and bridged the wound VAC out on to the left lateral buttock and placed a wound VAC disk, which was applied to suction. This held a good "raisin," indicating adequate suction without a significant leak. The patient was then positioned supine. He was extubated. He was conveyed to the postanesthesia care unit, where he was in stable condition. TRANSINT:[id number] Voice Confirmation ID: [id number] DOCUMENT ID: [id number] 10/02/2018 Edited for chef saucier error, [email or web address]. JAY CHEN MD at 1100 CC: [id number] DICTATION DATE: 09/30/18923 BALE STACKER: 09/30/18 1212 DIS IN 10/05/18 [place] [id number] [place] [address]
== END 2018-10-05 14:07 | DRG 981 ==
LOC: D.ER 22:12 → OBSVTIME 09-25 03:35 → D.MS 09-25 03:35
PROVIDERS: Emergency Medicine; Family Medicine; Surgery; ADMIT Legal Medicine
PROC: 0KBN0ZZ Excision of Right Hip Muscle, Open Approach (ICD-10-PCS; 2018-09-28)
PROC: 0KBP0ZZ Excision of Left Hip Muscle, Open Approach (ICD-10-PCS; principal; 2018-09-28 12:00)
PROC: 05HY33Z Insertion of Infusion Device into Upper Vein, Percutaneous Approach (ICD-10-PCS; 2018-10-04)
DX: T83.098A Other mechanical complication of other urinary catheter, initial encounter (principal); L89.154 Pressure ulcer of sacral region, stage 4; G82.20 Paraplegia, unspecified; G95.89 Other specified diseases of spinal cord; L97.411 Non-pressure chronic ulcer of right heel and midfoot limited to breakdown of skin; E11.9 Type 2 diabetes mellitus without complications; F31.9 Bipolar disorder, unspecified; D64.9 Anemia, unspecified; N31.9 Neuromuscular dysfunction of bladder, unspecified; S34.10 Unspecified injury to lumbar spinal cord; E11.621 Type 2 diabetes mellitus with foot ulcer

== ENCOUNTER 2018-11-07 17:57 | Inpatient (IN) | payer OTHER ==
[~2018-11-07] VITALS: Ht 177.8 cm; Wt 90.3 kg
[~2018-11-07 17:57] MED LIST changes: +MERREM 1 GM/NS 11 G1 IV
[2018-11-07 18:55] VITALS: BP 111/79
[2018-11-07 18:59] LABS: BASOPHILS 0.1 % (0-2); EOSINOPHILS 0.2 % (0-7); HEMATOCRIT 36.1 % (42.0-54.0); HEMOGLOBIN 11.4 g/dL (13.5-17.5); IMMATURE GRANULOCYTES 0.2 % (0-5); LYMPHOCYTES 2.3 % (15-50); MCH 23.6 pg (26.0-34.0); MCHC 31.6 g/dL (31.0-37.0); MCV 74.6 fL (80.0-100.0); MEAN PLATELET VOLUME 9.8 fL (7.4-10.4); MONOCYTES 6.8 % (2-11); NEUTROPHILS 90.4 % (40-80); PLATELET COUNT 410 10x3/uL (130-400); RBC 4.84 10x6/uL (4.20-6.10); RDW 17.3 % (11.5-14.5); WBC 18.5 10x3/uL (4.8-10.8)
[2018-11-07 19:13] LABS: APTT 30.4 SECONDS (22.8-39.4); INR 1.19 (0.85-1.17); PROTIME 14.6 SECONDS (11.6-15.0)
[2018-11-07 19:21] LABS: ALBUMIN 2.3 g/dL (3.4-5.0); ALKALINE PHOSPHATASE 146 U/L (46-116); ALT (SGPT) 35 U/L (10-68); BILIRUBIN - TOTAL 0.47 mg/dL (0.2-1.3); CALC OSMOLALITY 281 mosm/kg (275-300); CALCIUM 8.6 mg/dL (8.5-10.1); CARBON DIOXIDE 23.3 mmol/L (21.0-32.0); CHLORIDE - SERUM 95 mmol/L (98-107); CREATININE - SERUM 1.2 mg/dL (0.6-1.3); POTASSIUM - SERUM 4.1 mmol/L (3.5-5.1); PROTEIN - SERUM 7.9 g/dL (6.4-8.2); SODIUM 131 mmol/L (136-145); UREA NITROGEN 48 mg/dL (7-18); eGFR NON AFRICAN AMERICAN 64 mL/min (90-120)
[2018-11-07 19:22] LABS: GLUCOSE 198 mg/dL (74-106)
[2018-11-07 19:32] LABS: CKMB 4.5 U/L (0.0-3.6)
[2018-11-07 19:42] LABS: CREATINE KINASE 1183 UL (21-232); TROPONIN-I < 0.017 ng/mL (0.000-0.060)
[2018-11-07 22:08] VITALS: BP 103/58
--- NOTE | 2018-11-07 23:15 | NUR ---
PT ARRIVED TO THE FLOOR. NO SPEECH. WILL OPEN EYES TO VERBAL STIMULI. VANCAMYCIN HANGING BUT NOT YET STARTED. WILL START IV ABX. BED RAILS UP X3. BED LOWERED AND LOCKED. CALL LIGHT IN REACH.
[2018-11-08 00:10] VITALS: BP 98/55
[2018-11-08 04:45] VITALS: BP 112/64
[2018-11-08 04:49] VITALS: BP 98/55; BMI 28.6
--- NOTE | 2018-11-08 07:27 | NUR ---
BUTTOCKS WOUNDS UNSTAGABLE. LT AND RT SIDE BUTTOCKS. REDDNESS WRAPPING AROUND TO GROIN AREA ON LT SIDE. TURN Q2HR. WILL FALLOW UP WITH WOUND CARE CONSULT.
--- NOTE | 2018-11-08 09:00 | NUR ---
PT REFUSING ALL LAB DRAWS AND IS CURSING AT STAFF STATES I AM NOT HAVING ANY STICKS NO LABS I KNOW I CAN REFUSE AND I AM
--- NOTE | 2018-11-08 09:58 | NUR ---
pt is from a longterm.
[2018-11-08 10:08] VITALS: BP 87/48
[2018-11-08 11:49] VITALS: Ht 177.8 cm; Wt 90.3 kg
--- NOTE | 2018-11-08 12:31 | NUR ---
PT CURSING AT STAFF REFUSING ALL LAB DRAWS AND IV TO BE RESITED PT SELF D/C IV LINE. REFUSES TO LET STAFF RESITE. HAVE APPROACHED PT X 4 ABOUT LABS AND RESITING IV OVER LAST 4 HRS AND PT IS ANGRY AND BILLIGERANT ABOUT REFUSAL. CALLED AND LEFT MESSAGE WITH DR. BELLE FOR [facility] GIPSON [facility] WHO IS FOLLOWING PT FOR FURTHER ORDERS PT IS NON COMPLIANT WITH CURRENT TREATMENT PLAN.
--- NOTE | 2018-11-08 12:53 | NUR ---
CAMRON GIPSON HERE WITH NEW ORDERS FOR DISCHARGE BACK TO [facility] WITH HOSPICE
[2018-11-08 13:37] VITALS: BP 81/48
--- NOTE | 2018-11-08 15:14 | NUR ---
I have reviewed this patient and I concur with the Shift Assessment completed by the Licensed Practical Nurse today this shift.
--- NOTE | 2018-11-08 17:41 | NUR ---
DR SANTIAGO ACCEPTED PT TO HOSPICE AND PT WILL RETURN TO [facility] IN AM
--- NOTE | 2018-11-08 20:20 | NUR ---
PT RESTING IN BED. ALERT AND ORIETNED. NO SIGNS OF DISTRESS. BREATHING EVEN AND UNLABORED. PT STATES NO PROBLEMS AT THIS TIME. NO IV SITE. PT REFUSES IV. BUTTOCKS WOUNDS LT AND RT DRESSING INTACT. COLOSTOMY LT LOWER ABD. SUPRAPUBIC CATH IN PLACE. LT FOOT DRESSING CLEAN DRY AND INTACT. BED ALARM ON. YELLOW GOWN ON WITH YELLOW ARM BAND. BED LOWERED AND LOCKED. BED RAILS UP X3. WILL CONTINUE PLAN OF CARE. CALL LIGHT IN REACH.
[2018-11-08 20:37] VITALS: BP 101/42
[2018-11-09 00:55] VITALS: BP 124/54
[2018-11-09 05:33] VITALS: BP 98/64
--- NOTE | 2018-11-09 08:15 | NUR ---
PATIENT IN BED RESTING QUIETLY. NO IV. COLOSTOMY AND SUPRAPUBIC CATH INTACT. NO COMPLAINTS. CALL LIGHT WITHIN REACH.
--- NOTE | 2018-11-09 08:47 | MORECARE ---
CASE MANAGEMENT DISCHARGE SUMMARY PATIENT: CAROL PUCKETT UNIT: [id number] ADM DATE: 11/07/18 AGE: 68 : 48 SEX: M ROOM/BED: D.2216 AUTHOR: EDWAR STODDARD PHYSICIAN: REFERRING PHYSICIAN: ALBERTO SANTIAGO MD DATE OF SERVICE: 11/09/18 Discharge Plan Patient Name: CAROL PUCKETT Facility: [facility]:[place] : 1950 Planned Disposition: Anticipated Discharge Date: Discharge Date: Expected LOS: Initial Reviewer: [email or web address] Initial Review Date: 11/07/2018 Generated: 11/09/18 9:46 am Comments DCP- Discharge Planning Updated by [email or web address]: Arianna Fraser on 11/09/18 7:[address] Patient will be discharging back to [facility] where he is a correction resident and will be admitted to hospice when he returns. he will transfer there via ems Patient Name: CAROL PUCKETT Page [phone] at 0847 All edits/amendments must be made on the electronic document DICTATION DATE: 11/09/18845 PAINTER DRUM: SIDDHARTHA 11/09/18845 RPT#: [id number] DC DATE: STATUS: ADM IN [facility] [address] [place] [address] END OF REPORT
[2018-11-09 08:54] VITALS: BP 105/66
--- NOTE | 2018-11-09 10:45 | NUR ---
AMBULANCE HERE TO TRANSFER PATIENT TO THE [facility]. PAPERWORK GIVEN TO EMS.
--- NOTE | 2018-11-09 16:42 | MORECARE ---
CASE MANAGEMENT DISCHARGE SUMMARY PATIENT: CAROL PUCKETT UNIT: [id number] ADM DATE: 11/07/18 AGE: 68 : 48 SEX: M ROOM/BED: D.2216 AUTHOR: EDWAR STODDARD PHYSICIAN: REFERRING PHYSICIAN: ALBERTO SANTIAGO MD DATE OF SERVICE: 11/09/18 Discharge Plan Patient Name: CAROL PUCKETT Facility: [facility]:[place] : 1950 Planned Disposition: Anticipated Discharge Date: Discharge Date: 11/09/2018 Expected LOS: Initial Reviewer: [email or web address] Initial Review Date: 11/07/2018 Generated: 11/09/18 5:42 pm Comments DCP- Discharge Planning Updated by [email or web address]: Arianna Fraser on 11/09/18 7:[address] Patient will be discharging back to [facility] where he is a custodial resident and will be admitted to hospice when he returns. he will transfer there via ems Last DP export: 11/09/18 7:47 a Patient Name: CAROL PUCKETT Page [phone] at 1642 All edits/amendments must be made on the electronic document DICTATION DATE: 11/09/181641 GEARMAN: SIDDHARTHA 11/09/181641 RPT#: [id number] DC DATE:11/09/18 STATUS: DIS IN [facility] [address] [place] [address] END OF REPORT
== END 2018-11-09 13:20 | disposition home health service (06) | DRG 871 ==
LOC: D.ER 17:57 → D.EDHOLD 20:37 → D.MS 20:37
PROVIDERS: Emergency Medicine; ADMIT Legal Medicine; ATTEND Legal Medicine
DX: A41.9 Sepsis, unspecified organism (principal); R40.2212 Coma scale, best verbal response, none, at arrival to emergency department; G82.21 Paraplegia, complete; L89.320 Pressure ulcer of left buttock, unstageable; L89.310 Pressure ulcer of right buttock, unstageable; F31.9 Bipolar disorder, unspecified; D50.9 Iron deficiency anemia, unspecified; E11.9 Type 2 diabetes mellitus without complications

== ENCOUNTER 2018-11-24 18:26 | Inpatient (IN) | payer OTHER ==
[~2018-11-24] VITALS: Ht 177.8 cm; Wt 91.7 kg
--- NOTE | 2018-11-24 19:00 | NUR ---
PITTING EDEMA NOTED TO BLE. DERMAPLEX DRSG NOTED TO LLE AND ANKLE. KERLEX WRAP NOTED TO THE RLE AND FOOT.
[2018-11-24 19:43] LABS: APPEARANCE CLOUDY (CLEAR); BACTERIA MANY /hpf (NONE SEEN); BILIRUBIN NEGATIVE (NEGATIVE); COLOR YELLOW (YELLOW); EPITHELIAL CELLS 0-5 /hpf (0-5); GLUCOSE NEGATIVE (NEGATIVE); KETONE NEGATIVE (NEGATIVE); NITRITE NEGATIVE (NEGATIVE); PROTEIN 2+ mg/dL (NEGATIVE); SPECIFIC GRAVITY 1.005 (1.005-1.020); UROBILINOGEN NORMAL (NORMAL); WHITE CELLS - URINE >50 /hpf (0-5)
[2018-11-24 19:44] LABS: AMORPHOUS SEDIMENT >1+ /lpf (NONE SEEN)
[2018-11-24 19:51] LABS: UDS - AMPHET NEGATIVE QUAL (NEGATIVE); UDS - BARB NEGATIVE QUAL (NEGATIVE); UDS - BENZO NEGATIVE QUAL (NEGATIVE); UDS - COCAINE NEGATIVE QUAL (NEGATIVE); UDS - OPIATE POSITIVE QUAL (NEGATIVE); UDS - PCP NEGATIVE QUAL (NEGATIVE); UDS - THC NEGATIVE QUAL (NEGATIVE)
--- NOTE | 2018-11-24 19:55 | NUR ---
RAC 20G PIV STARTED PER EMS. 20F BROWN CATH INDWELLING INDWELLING UPON ARRIVAL.
[2018-11-24 20:19] LABS: HEMOGLOBIN 8.1 g/dL (13.5-17.5); MCH 22.6 pg (26.0-34.0); MCHC 31.2 g/dL (31.0-37.0); MCV 72.6 fL (80.0-100.0); RBC 3.58 10x6/uL (4.20-6.10); WBC 20.6 10x3/uL (4.8-10.8)
[2018-11-24 20:20] LABS: MEAN PLATELET VOLUME 10.7 fL (7.4-10.4); PLATELET COUNT 364 10x3/uL (130-400)
[2018-11-24 20:34] LABS: ALBUMIN 1.7 g/dL (3.4-5.0); ALKALINE PHOSPHATASE 140 U/L (46-116); ALT (SGPT) 38 U/L (10-68); BILIRUBIN - TOTAL 0.41 mg/dL (0.2-1.3); CALC OSMOLALITY 302 mosm/kg (275-300); CALCIUM 8.3 mg/dL (8.5-10.1); CARBON DIOXIDE 24.9 mmol/L (21.0-32.0); CHLORIDE - SERUM 93 mmol/L (98-107); CREATININE - SERUM 2.6 mg/dL (0.6-1.3); GLUCOSE 206 mg/dL (74-106); MAGNESIUM - SERUM 1.5 mg/dL (1.8-2.4); POTASSIUM - SERUM 5.4 mmol/L (3.5-5.1); PROTEIN - SERUM 6.8 g/dL (6.4-8.2); SODIUM 130 mmol/L (136-145); TROPONIN-I < 0.017 ng/mL (0.000-0.060); UREA NITROGEN 112 mg/dL (7-18); eGFR NON AFRICAN AMERICAN 26 mL/min (90-120)
[2018-11-24 20:49] LABS: LYMPHOCYTES 6 % (15-50); MONOCYTES 2 % (2-11); NEUTROPHILS 92 % (40-80); PLATELET ESTIMATE INCREASED; PLATELET MORPHOLOGY NORMAL PLT MORPH
--- NOTE | 2018-11-24 21:00 | NUR ---
AUDIBLE RATTLING NOTED WITH EXPIRATION. ADVISED NESS SULTANA. AWAITING FURTHER ORDERS AT THIS TIME.
[2018-11-24 21:15] VITALS: BP 101/77
[2018-11-25] VITALS (61 sets, daily range): BP systolic 74–131; BP diastolic 30–90; BMI 28.7
--- NOTE | 2018-11-25 00:15 | NUR ---
RECIEVED REPORT FROM LOIS MCKEON. PT RECIEVED IN A BED. PT APPEARS LETHARGIC ON ARRIVAL. VSS ON ARRIVAL, PT CONFUSED, NOT ALERT NOR ORIENTED, PT NON-VERBAL AND SOMETIMES SLOW TO RESPONSD. IV 20G TO RIGHT AC. VANC INFUSING ON ARRIVAL. DRESSING R/L LEG DRESSING C/D/I. DRESSING ON COCCYX C/D/I. BROWN IN PT ON ARRIVAL. PLACED TELE ON PT. PT CURRENLTY NORMAL SINUS WITH OCCATIONAL PVC. PT ON STRICT BED REST, BED ALARM ON, OXYGEN ON 4L HF. DENIES ANY FURTHER NEED FOR COMFORT CARE. PT POOR HISTORIAN. ADMISSION ASSESSMENT COMPLETED. WILL CPOC. CL IN REACH, BED IN LOW, SR UP X2.
--- NOTE | 2018-11-25 04:51 | NUR ---
VALUE ANALYSIS COORDINATOR NOTIFIED ME PT BP WAS 80/36. REASSESED, BP NOW 89/54. ER NURSE NOTIFIED ME THAT PT SBP HAS BEEN RUNNING LOW 90'S AND HIGH 80'S. PT STILL LETHARGIC AND RESPIRATIONS UNEVEN, PT IS A MOUTH BREATHER AND LUNGS SOUNDS CRACKLY. WILL CTM. CL IN REACH, BED IN LOW, SR UP X2.
[2018-11-25 05:23] LABS: ALBUMIN 1.4 g/dL (3.4-5.0); ANION GAP 17.3 mmol/L (8-16); BILIRUBIN - TOTAL 0.46 mg/dL (0.2-1.3); CALCIUM 7.9 mg/dL (8.5-10.1); CREATININE - SERUM 2.5 mg/dL (0.6-1.3); POTASSIUM - SERUM 5.3 mmol/L (3.5-5.1); PROTEIN - SERUM 6.2 g/dL (6.4-8.2)
--- NOTE | 2018-11-25 05:58 | NUR ---
ASSESSED PT BUTTOCKS DRESSING. DRESSING OOZING OUT BLOOD. REMOVED THE OLD DRESSING CLEANED THE SITE, PACKED WITH GAUZE AND COVERED WITH ABDOMINAL DRESSING AND TAPED. WILDLIFE OFFICER HELPED CLEAN AND REPOSITION PT. OSTOMY BAG EMPTY. WILL CTM. CL IN REACH, BED IN LOW, SR UP X2.
[2018-11-25 06:43] LABS: BASOPHILS 0.1 % (0-2); EOSINOPHILS 0.1 % (0-7); HEMATOCRIT 21.8 % (42.0-54.0); LYMPHOCYTES 3.2 % (15-50); MCH 22.1 pg (26.0-34.0); MCHC 30.3 g/dL (31.0-37.0); MCV 72.9 fL (80.0-100.0); MEAN PLATELET VOLUME 10.4 fL (7.4-10.4); MONOCYTES 3.5 % (2-11); NEUTROPHILS 92.1 % (40-80); RBC 2.99 10x6/uL (4.20-6.10); RDW 18.3 % (11.5-14.5)
[2018-11-25 06:46] LABS: PLATELET COUNT 283 10x3/uL (130-400); WBC 13.6 10x3/uL (4.8-10.8)
[2018-11-25 06:48] LABS: HEMOGLOBIN 6.6 g/dL (13.5-17.5)
--- NOTE | 2018-11-25 06:50 | NUR ---
LAB NOTIFIED ME THAT PT HGB 6.1 CALLED LAB TO RECHECK. LAB RECHECKED HGB 6.6. WILL PASS REPORT TO DAY SHIFT NURSE.
--- NOTE | 2018-11-25 08:17 | NUR ---
PT AWAKE AND MADE EYE CONTACT, DID NOT VERBALISE ANYTHING. CAN HEAR THE FLUID ON HIS LUNGS FROM BEDSIDE. GARGLING, RT TRIED TO SUCTION BUT COULDN'T GET ANYTHING UP. WILL CONTINUE TO MONITOR. CALLED HOSPICE, THEY SAID THEY D/C HIM LAST NIGHT. PT IS CURRENTLY A FULL CODE. CL IN REACH. SRX.2
--- NOTE | 2018-11-25 09:00 | NUR ---
REC'D FROM FLOOR VIA BED, AUDIBLE CRACKLES, OPENS EYES TO VERBAL, MOVES BUE. ASSESSED.
--- NOTE | 2018-11-25 09:45 | NUR ---
DR FIELDS NOTIFIED OF CONSULT WELL VSS- SBP 70'S. LEVOPHED GTT STARTED AT 2 MCG/MIN.
[2018-11-25 10:44] LABS: CREATINE KINASE 134 UL (21-232); PRO BNP 673 pg/mL (0-125); TROPONIN-I < 0.017 ng/mL (0.000-0.060)
--- NOTE | 2018-11-25 11:15 | NUR ---
EVENTS LAST 1 1/2 HR: DR FIELDS ROUNDS, ORDERS FOR TRANSFUSION REC'D, ATTEMPTS X 4 TO SITE 2ND PIV UNSUCCESSFUL- MANIFOLD IN USE, 1ST UNIT PRBCS STARTED AFTER SPEAKING WITH RUSSEL WISE.
--- NOTE | 2018-11-25 13:00 | NUR ---
REASSESSED, MORE ALERT- SPEECH MORE CLEAR. 2ND UNIT PRBCS STARTED. LEVOPHED TITRATED TO 5 MCG/MIN.
--- NOTE | 2018-11-25 15:30 | NUR ---
REDRESSED LEFT MEDIAL CALF WOUND- NO DRNG, PINK CENTER WITH WHITE SKIN AT EDGE- CLEAN.
[2018-11-25 17:21] LABS: ANION GAP 19.4 mmol/L (8-16); CALCIUM 7.6 mg/dL (8.5-10.1); CARBON DIOXIDE 20.5 mmol/L (21.0-32.0); CREATININE - SERUM 2.5 mg/dL (0.6-1.3); POTASSIUM - SERUM 5.9 mmol/L (3.5-5.1)
--- NOTE | 2018-11-25 18:04 | NUR ---
VSS ON LEVOPHED @ 4MCG/MIN.
--- NOTE | 2018-11-25 19:32 | NUR ---
PT RECEIVED WITH EYES CLOSED AND CHEST RISING. AWOKEN TO VERBAL STIMULI. REPORT RECEIVED. PT REPOSITIONED. SUPRAPUBIC CATH LEAKING AROUND ORIFICE. TOWEL IN POSITION TO CATCH DRAINAGE. CALL LIGHT IN REACH. WILL CONTINUE TO OBSERVE.
--- NOTE | 2018-11-25 21:25 | NUR ---
PT OPENS TO STIMULI. REPOSITONING PROVIDED. FSBS 204 WITH 4 UNITS GIVEN PER MAR. LEVOPHED TITRATED DOWN FROM 4 TO 3MCG AT 2002, TOLERATING WELL AT THIS TIME. WILL CONTINUE TO OBSERVE AND TITRATE TOLERATED.
--- NOTE | 2018-11-25 23:30 | NUR ---
REASSESSMENT COMPLETED, SEE FLOW SHEET. OPENS EYES TO STIMULATION. NO S/S OF DISTRESS. WILL CONTINUE TO OBSERVE.
[2018-11-26] VITALS (78 sets, daily range): BP systolic 62–140; BP diastolic 47–127; BMI 28.9
--- NOTE | 2018-11-26 01:10 | NUR ---
PT REPOSITIONED. ORAL CARE PROVIDED, NO S/S OF DISTRESS. WILL CONTINUE TO OBSERVE.
--- NOTE | 2018-11-26 03:35 | NUR ---
REASSESSMENT COMPLETED, SEE FLOW SHEET. NO S/S OF DISTRESS. WILL CONTINUE TO OBSERVE.
--- NOTE | 2018-11-26 05:05 | NUR ---
PT WITH EYES OPEN. NO S/S OF DISTRESS. WILL CONTINUE TO OBSERVE.
[2018-11-26 05:31] LABS: BASOPHILS 0.1 % (0-2); EOSINOPHILS 0.3 % (0-7); HEMATOCRIT 28.2 % (42.0-54.0); IMMATURE GRANULOCYTES 0.3 % (0-5); LYMPHOCYTES 8.1 % (15-50); MCH 24.3 pg (26.0-34.0); MCHC 31.9 g/dL (31.0-37.0); MEAN PLATELET VOLUME 10.5 fL (7.4-10.4); MONOCYTES 6.5 % (2-11); NEUTROPHILS 84.7 % (40-80); PLATELET COUNT 237 10x3/uL (130-400); RBC 3.71 10x6/uL (4.20-6.10); RDW 18.9 % (11.5-14.5); WBC 7.8 10x3/uL (4.8-10.8)
[2018-11-26 06:02] LABS: ALBUMIN 1.4 g/dL (3.4-5.0); BILIRUBIN - TOTAL 1.18 mg/dL (0.2-1.3); CALCIUM 7.6 mg/dL (8.5-10.1); CARBON DIOXIDE 23.7 mmol/L (21.0-32.0); CREATININE - SERUM 2.4 mg/dL (0.6-1.3); MAGNESIUM - SERUM 1.6 mg/dL (1.8-2.4); PHOSPHOROUS 5.8 mg/dL (2.5-4.9); PROTEIN - SERUM 6.3 g/dL (6.4-8.2); THYROID STIMULATING HORMONE 1.6 uIU/mL (0.36-3.74); VANCOMYCIN - RANDOM 19.6 ug/mL (10.0-20.0)
[2018-11-26 06:10] LABS: ANION GAP 15.7 mmol/L (8-16); POTASSIUM - SERUM 4.4 mmol/L (3.5-5.1)
--- NOTE | 2018-11-26 07:40 | NUR ---
REPORT RECEIEVED. ASSESSMENT COMPLETE PER FLOW SHEET. VSS. PT RESTING COMFORTABLY WILL CONTINUE TO MONITOR
--- NOTE | 2018-11-26 09:10 | NUR ---
BROWN CARE ADM. NO NEW CHANGES PT RESTING COMFROTABLY
--- NOTE | 2018-11-26 10:18 | NUR ---
PT REPOSITIONED ON L SIDE PER DEMAND. DENIES FURTHER NEEDS. REORIENTED TO TIME PLACE SITUATION STATES UNDERSTANDING WILL CONTNIUE TO MORGAN
--- NOTE | 2018-11-26 10:45 | NUR ---
ASSUMED CARE. REC'D RIGHT SIDE. AWAKE/ VERBALIZING BUT DOES NOT MAKE SENSE. LEVOPHED TO 4 MCG/MIN- SEE VS.
--- NOTE | 2018-11-26 11:00 | NUR ---
ASSESSED. ABLE TO STATE NAME. REORIENTED TO TIME/PLACE SITUATION. PRONE TO BURSTS OF CURSING AND SHAKING SIDERAILS. MULTIPLE DECUBITI - SACRAL/ LEFT KNEE/ LEFT CALF & FOOT/ RIGHT CALF & FOOT- WOUND CARE CONSULTED.
--- NOTE | 2018-11-26 11:20 | NUR ---
DR CHEN ROUNDS- ORDERS REC'D.
--- NOTE | 2018-11-26 13:15 | NUR ---
REPOSITIONED. HAS BEEN REMOVING HIS NIBP CUFF- INSTRUCTED ON IMPORTANCE OF FREQU BP CHECKS WHILE ON LEVOPHED GTT- WILL CONT TO REINFORCE.
--- NOTE | 2018-11-26 15:00 | NUR ---
REASSESSED W/O CHANGES. LEVO @ 4,CG. CONT TO HAVE OUTBURSTS OF VERBAL ABUSE. PULLS BP CUFF AND O2 OFF CONSTANTLY DESPITE REORIENTATION TO SITUATION.
--- NOTE | 2018-11-26 17:00 | NUR ---
REPOSITIONED. DR NELSON ROUNDS.
--- NOTE | 2018-11-26 19:00 | NUR ---
REPORT RECEIVED. RECEIVED PATIENT AWAKE AND ALERT. ORIENTED TO SELF ONLY. SPEECH GARBLED/ CLEAR AT TIMES. MONITORS CONNECTED TO PT WITH ALARMS SET. VSS. SHIFT ASSESSMENT COMPLETED WITH NO DISTRESS OBSERVED.
--- NOTE | 2018-11-26 21:00 | NUR ---
AWAKE AND ALERT. ORIENTED TO SELF ONLY. RESTLESS. MOVING UPPER EXTREMETIES AROUND FREQUENTLY/ REMOVING BP CUFF AND PULSE OX. MONITORS REPLACED AND REPOSITIONED FREQUENTLY. VSS
--- NOTE | 2018-11-26 21:21 | NUR ---
BP 102/71 LEVOPHED DOWN TO 1.5 MCG/MIN
--- NOTE | 2018-11-26 22:11 | NUR ---
BP 107/52 LEVOPHED DOWN TO 1 MCG/MIN
--- NOTE | 2018-11-26 23:00 | NUR ---
ASSESSMENT COMPLETED WITH NO DISTRESS OBSERVED. VSS
[2018-11-27] VITALS (60 sets, daily range): BP systolic 63–134; BP diastolic 45–95; Ht 177.8 cm; Wt 91.7 kg
--- NOTE | 2018-11-27 01:00 | NUR ---
PT AWAKE AND ALERT. ORIENTED TO SELF ONLY. INTO ROOM FREQUENTLY TO REPLACE/REPOSITION BP CUFF/PULSE OX AND MONITORS DUE TO PATIENT MOVING AROUND.
[2018-11-27 06:26] LABS: ALBUMIN 1.4 g/dL (3.4-5.0); ANION GAP 18.3 mmol/L (8-16); BASOPHILS 0.1 % (0-2); BILIRUBIN - TOTAL 0.89 mg/dL (0.2-1.3); CALCIUM 7.3 mg/dL (8.5-10.1); CARBON DIOXIDE 22.3 mmol/L (21.0-32.0); EOSINOPHILS 0.6 % (0-7); HEMATOCRIT 24.9 % (42.0-54.0); HEMOGLOBIN 7.8 g/dL (13.5-17.5); IMMATURE GRANULOCYTES 0.6 % (0-5); LYMPHOCYTES 6.4 % (15-50); MAGNESIUM - SERUM 1.6 mg/dL (1.8-2.4); MCH 23.9 pg (26.0-34.0); MCHC 31.3 g/dL (31.0-37.0); MCV 76.1 fL (80.0-100.0); MONOCYTES 7.7 % (2-11); NEUTROPHILS 84.6 % (40-80); PHOSPHOROUS 4.4 mg/dL (2.5-4.9); PLATELET COUNT 239 10x3/uL (130-400); PROTEIN - SERUM 5.4 g/dL (6.4-8.2); RBC 3.27 10x6/uL (4.20-6.10); RDW 19.2 % (11.5-14.5); VANCOMYCIN - RANDOM 21.5 ug/mL (10.0-20.0); WBC 10.5 10x3/uL (4.8-10.8)
[2018-11-27 06:37] LABS: CREATININE - SERUM 1.6 mg/dL (0.6-1.3); POTASSIUM - SERUM 3.6 mmol/L (3.5-5.1)
--- NOTE | 2018-11-27 07:00 | NUR ---
PT RESTING IN BED WITH CALL MAGAÑA IN REACH. DISORIENTED TO PLACE TIME AND SITUATION BUT AWAKE AND ALERT. BP STABLE OFF LEVOPHED. WILL CONTINUE TO MONITOR
--- NOTE | 2018-11-27 09:00 | NUR ---
PT KEEPS PULLING OFF BP AND O2 SAT MONITOR. SPOT CHECKING--VSS
--- NOTE | 2018-11-27 10:22 | NUR ---
CHANGED DRESSING TO SACRAL WOUND. SEROUS DRAINAGE. PULLED UP IN BED AND TURNED TO RIGHT SIDE.
--- NOTE | 2018-11-27 10:32 | NUR ---
OBTAINED ORDER FROM DR. SANTIAGO'S POLICE INVESTIGATOR, BOGDAN, TO TRANSFUSE 1 UNIT PRBC FOR LOW HGB.
--- NOTE | 2018-11-27 11:30 | NUR ---
STARTED LEVOPHED AT 4MCG FOR SISTOLIC BP BELOW 80 AND MAP BELOW 65. PT IS THROWING FREQUENT PVC'S. REPLACING MAGNESIUM. NOTIFIED DR. CHEN AND WILL NOTIFY DR. MENDOZA WHEN HERE.
--- NOTE | 2018-11-27 12:14 | NUR ---
PT REMOVED RIGHT AC IV. COULD NOT GET NEW IV. CALLED VASCULAR ACCESS NURSE HEIDI--PLACED TO 20 GUAGE IV'S IN RIGHT ARM. RIGHT FOREARM AND RIGHT UPPER ARM. RESTARTED LEVOPHED AT 3MCG AND NS AT 75ML/HR.
--- NOTE | 2018-11-27 13:37 | NUR ---
PAGED DR. FARIA FOR CONSULT AND ALSO TALKED TO DIANE, WOUND CARE NURSE ABOUT CONSULT
--- NOTE | 2018-11-27 14:01 | NUR ---
OBTAINED ORDER FOR CENTRAL LINE FROM JUAN A MCFADDEN FOR DR. SANTIAGO
--- NOTE | 2018-11-27 14:41 | NUR ---
OBTAINED CONSENT FOR CENTRAL LINE PLACEMENT FROM PATIENTS BILLIE GOODE. JOSIAH HERE TO PLACE IT.
--- NOTE | 2018-11-27 14:57 | NUR ---
CENTRAL LINE PLACED IN LEFT IJ. STAT CHEST XRAY ORDERED.
--- NOTE | 2018-11-27 15:50 | NUR ---
BLOOD TRANSFUSION INITIATED AT THIS TIME. VSS
--- NOTE | 2018-11-27 16:13 | NUR ---
Pt has been in this hospital several times with same chronic wounds including sacrum, coccyx, bilateral buttocks amd scrotum all being one stage 4 pressure injury. Bone is exposed at sacrum. Left leg from thigh to foot is edematous and red. Knee has chronic wound with necrotic spots surrounding it. Left foot/toes discolored, edematous with blisters. Right calf, right hip and right plantar foot with chronic nonhealing wounds. Has ostomy and de leon cath in place. Recommendations: -Wet to dry dressing for sacral wounds, left knee, right calf and right plantar. -Air overlay mattress -turn/reposition q 2 hours -bridge heels -protect bony prominences Wound care will monitor. -
--- NOTE | 2018-11-27 16:13 | NUR ---
WOUND CARE NURSE CAME TO ASSESS AND DRESS SACRAL WOUND. ALSO DID COMPLETED LINEN CHANGE AND BED BATH. TURNED TO LEFT SIDE.
--- NOTE | 2018-11-27 16:40 | NUR ---
CHANGED COLOSTOMY BAG
--- NOTE | 2018-11-27 16:59 | NUR ---
LEFT VOICEMAIL FOR DR. URIZ ABOUT CONSULT FOR NEW SUPRAPUBIC CATHETER.
--- NOTE | 2018-11-27 17:15 | NUR ---
BLOOD TRANSFUSION COMPLETE. VSS.
--- NOTE | 2018-11-27 18:13 | NUR ---
LEVOPHED TITRATED OFF AT THIS TIME. MONITORING BP
--- NOTE | 2018-11-27 18:49 | NUR ---
SUPRAPUBIC CATHETER CHANGED BY DR. RUIZ
--- NOTE | 2018-11-27 19:30 | NUR ---
X1 LARGE CUP ICE WATER GIVEN TO PT, RN ASSISTED PT WITH DRINK, PT CONFUSED WITH PERIODS OF WORD SALAD, PT ASKED NURSE " CAN I GET OUT OF THIS BED, SO I CAN LAY ON FLOOR" REORIENTED PT TO SITUATION, PT CONTINUES TO BE CONFUSED, WILL CONTINUE ATTEMPTS TO ORIENT, INITIAL SHIFT ASSESSMENT COMPLETED PER FLOW SHEET, PT HAS LEFT IJ TRIPPLE LUMEN CVL INFUSING MEDS PER MAR/ORDERS, CVL DRSG CDI, PT ALSO HAS SALINE LOCKED RIGHT FA 20g PIV DRSG CDI, COLOSTOMY SITE TO LLQ ABDOMEN WITH OSTOMY BAG SECURED, NO BM NOTED IN BAG, STOMA PROTRUDING 2-3CM STATED THIS IS NORMAL FOR PT, B/P WITH LEVOPHED, OTHER VSS, WILL CONT TO MONITOR
--- NOTE | 2018-11-27 21:00 | NUR ---
REPOSITIONED PT IN BED, PT CONFUSED, REORIENTED MULTIPLE TIMES, ASSISTED WITH PT FOOD/DRINK, MEDS GIVEN PER OCT/, B/P TITRATING LEVOPHED, OTHER VSS
--- NOTE | 2018-11-27 23:00 | NUR ---
REASSESSMENT COMPLETE SEE FLOW SHEET FOR FURTHER, PT CONFUSED YELLING FROM ROOM, PT APEARS TO BE HAVING AUDITORY AND VISUAL HALLUCINATIONS THAT PEOPLE ARE IN ROOM WHEN ROOM IS EMPTY, REORIENTED PT BUT CONTINUES AMS SOON AFTER SHORT PERIOD OF TIME, VSS WILL CONT TO MONITOR
[2018-11-28] VITALS (23 sets, daily range): BP systolic 102–159; BP diastolic 55–104
--- NOTE | 2018-11-28 02:00 | NUR ---
PT YELLING FROM ROOM; " GET ME OFF THIS THING AND LET ME GO HOME" WHEN ASKED WHAT PT WAS REFERING TOO, PT STATED " THIS PORCH", REORIENTED EFFORTS DONE, PT REQUESTED DRINK OF H20 BUT STATED " YOUR WATER TASTES LIKE SHIT", ASKED PT IF HE WOULD LIKE ANOTHER TYPE OF DRINK, PT STATED "YES" TO DIET [place] [facility], ASSISTED PT WITH DRINKING, WILL CONTINUE TO MONITOR
[2018-11-28 05:59] LABS: ALBUMIN 1.4 g/dL (3.4-5.0); BILIRUBIN - TOTAL 0.83 mg/dL (0.2-1.3); CALCIUM 7.6 mg/dL (8.5-10.1); CARBON DIOXIDE 17.8 mmol/L (21.0-32.0); CREATININE - SERUM 1.3 mg/dL (0.6-1.3); MAGNESIUM - SERUM 1.8 mg/dL (1.8-2.4); PROTEIN - SERUM 6.3 g/dL (6.4-8.2)
[2018-11-28 06:06] LABS: ANION GAP 20.9 mmol/L (8-16); PHOSPHOROUS 2.8 mg/dL (2.5-4.9)
--- NOTE | 2018-11-28 06:06 | NUR ---
RADHA FROM LAB CALLED, CRITICAL K+ LAB 2.7, TREATING PER PROTOCOL/ORDERS, WILL NOTIFY DAY SHIFT
[2018-11-28 06:07] LABS: POTASSIUM - SERUM 2.7 mmol/L (3.5-5.1)
[2018-11-28 06:09] LABS: BASOPHILS 0.1 % (0-2); EOSINOPHILS 0.1 % (0-7); HEMATOCRIT 28.9 % (42.0-54.0); HEMOGLOBIN 9.1 g/dL (13.5-17.5); IMMATURE GRANULOCYTES 1.3 % (0-5); LYMPHOCYTES 6.6 % (15-50); MCH 24.7 pg (26.0-34.0); MCHC 31.5 g/dL (31.0-37.0); MCV 78.5 fL (80.0-100.0); MEAN PLATELET VOLUME 11.1 fL (7.4-10.4); MONOCYTES 6.2 % (2-11); NEUTROPHILS 85.7 % (40-80); PLATELET COUNT 249 10x3/uL (130-400); RBC 3.68 10x6/uL (4.20-6.10); RDW 19.9 % (11.5-14.5); WBC 15.2 10x3/uL (4.8-10.8)
--- NOTE | 2018-11-28 07:30 | NUR ---
AWAKE AND VERY CONFUSED. THINKS HE IS ON A TRAIN, THEN HE THINKS HE IS ON A BUS. DID FEED HIMSELF A FEW BITES OF BREAKFAST. REVIEWED MENU COULD TELL NURSE WHAT FOOD HE LIKES. TAKING OXYGEN OFF WHEN WRIST UNTIED. OXYGEN LEFT OFF. LEFT IJ INFUSING WITH NS AT 75 ML HOUR. SUPRA PUBIC DRAINING CLOUDY YELLOW URINE. COLOSTOMY BAG DARK BROWN IN BAG. MONITOR SR WITH PAC'S. LEFT FOOT SWOLLEN WITH PURPLE AREAS NOTED. NO PALABLE PULSES IN FEET. RIGHT FOOT SWOLLEN.
--- NOTE | 2018-11-28 09:00 | NUR ---
REPOSITIONED. STILL VERY CONFUSED.
--- NOTE | 2018-11-28 10:31 | NUR ---
TRYING TO CONTACT FAMILY TO DISCUSS PLAN FOR PATIENT CARE
--- NOTE | 2018-11-28 11:00 | NUR ---
REPOSITIONED FOR COMFORT. LARGE AMOUNT OF DRAINAGE NOTED ON BUTTOCK DRESSING.
[2018-11-28 11:02] LABS: APPEARANCE CLEAR (CLEAR); BILIRUBIN NEGATIVE (NEGATIVE); COLOR YELLOW (YELLOW); GLUCOSE NEGATIVE (NEGATIVE); KETONE NEGATIVE (NEGATIVE); NITRITE NEGATIVE (NEGATIVE); PROTEIN NEGATIVE (NEGATIVE); SPECIFIC GRAVITY 1.015 (1.005-1.020); UROBILINOGEN NORMAL (NORMAL); WHITE CELLS - URINE RARE /hpf (0-5)
[2018-11-28 11:03] LABS: BACTERIA FEW /hpf (NONE SEEN); EPITHELIAL CELLS OCC /hpf (0-5); MUCUS <1+ /lpf (NONE SEEN); RED CELLS - URINE OCC /hpf (0-5); URIC ACID CRYSTALS OCC /hpf (NONE SEEN)
--- NOTE | 2018-11-28 12:51 | NUR ---
NUTRITION F/U CHART REVIEWED. PT VISIT. TOLERATING REG DIET. WILL CONTINUE TO PROVIDE DIET, MONITOR PO INTAKE. RD FOLLOWING
--- NOTE | 2018-11-28 13:23 | NUR ---
SCREAMING AT NURSE, MAD DOES WANT TO BE FEED, BUT NOT FEEDING HIMSELF.
--- NOTE | 2018-11-28 15:00 | NUR ---
WOUND CARE DONE. LARGE FOUND SMELLING WOUND ENTIRE BUTTOCK AND COCCYX OPEN WOUND, CLEAN WITH NS. WET TO DRY KERLIX X 2 APPLIED. 4X4 AND ABD PADS APPLIED. SECURE WITH TAPE. DRESSING ON LOWER LEGS CHANGED. RIGHT LEG LARGE GREEN AREA. CLEAN WITH NS. STERILE DRESSING APPLIED. LEFT LEG LARGE BLACK AREA MEDIPLEX APPLIED. BATH GIVEN. PATIENT TOLERATED POORLY. MESSAGE LEFT FOR CAMRON TO CALL BACK ABOUT PAIN MEDS
--- NOTE | 2018-11-28 16:04 | MORECARE ---
CASE MANAGEMENT DISCHARGE SUMMARY PATIENT: CAROL PUCKETT UNIT: [id number] ADM DATE: 11/24/18 AGE: 68 : 48 SEX: M ROOM/BED: D.2311 AUTHOR: EDWAR STODDARD PHYSICIAN: REFERRING PHYSICIAN: ALBERTO SANTIAGO MD DATE OF SERVICE: 11/28/18 Discharge Plan Patient Name: CAROL PUCKETT Facility: [facility]:[place] : 1950 Planned Disposition: Nursing Facility TATE Cert Anticipated Discharge Date: Discharge Date: Expected LOS: Initial Reviewer: [email or web address] Initial Review Date: 11/28/2018 Generated: 11/28/18 5:03 pm DCPIA - Discharge Planning Initial Assessment Updated by [email or web address]: Gricelda Coto on 11/28/18 4:01 pm * Is the patient Alert and Oriented? No * PCP PAMELA * Preadmission Environment Longterm Long Term * Facility Name [facility] [phone] * List name and contact numbers for known caregivers / representatives who currently or will assist patient after discharge: RUSSEL PUCKETT - [facility]- [phone] * Verbal permission to speak to the caregivers and representatives has been obtained from the patient. N/A * Additional services required to return to the preadmission environment? No * Can the patient safely return to the preadmission environment? Yes Patient Name: CAROL PUCKETT Page [phone] at 1604 All edits/amendments must be made on the electronic document DICTATION DATE: 11/28/18 160 ASSISTANT CLINICAL DIRECTOR: SIDDHARTHA 11/28/18 160 RPT#: [id number] DC DATE: STATUS: ADM IN [facility] [address] [place] [address] END OF REPORT
--- NOTE | 2018-11-28 16:14 | MORECARE ---
CASE MANAGEMENT DISCHARGE SUMMARY PATIENT: CAROL VALVERDE UNIT: [id number] ADM DATE: 11/24/18 AGE: 68 : 48 SEX: M ROOM/BED: D.2311 AUTHOR: ARLYNDOC PHYSICIAN: REFERRING PHYSICIAN: ALBERTO SANTIAGO MD DATE OF SERVICE: 11/28/18 Discharge Plan Patient Name: CAROL VALVERDE Facility: [facility]:[place] : 1950 Planned Disposition: Nursing Facility TATE Cert Anticipated Discharge Date: Discharge Date: Expected LOS: Initial Reviewer: [email or web address] Initial Review Date: 11/28/2018 Generated: 11/28/18 5:14 pm Comments DCP- Discharge Planning Updated by [email or web address]: Gricelda Coto on 11/28/18 3:[address] Patient Name: CAROL VALVERDE Admission Status: ER Accout number: [id number] Admission Date: 11-24-2018 : 1950 Admission Diagnosis:SEPSIS, UNSPECIFIED ORGANISM Attending: ALBERTO SANTIAGO Current LOS: 4 Anticipated DC Date: Planned Disposition: Nursing Facility TATE Cert Primary Insurance: [employer] Discharge Planning Comments: CM attempted to met with patient he was yelling out and refused to speak with me. CM found out that patient is a resident in shelter care at [facility]. He is a and receiving benefits. [facility] expeditor has been notified and patient is on list. Michael Valverde (cousin) is patients next of kin [phone]. Plan at this time is for patient to return to the [facility] upon discharge. CM will continue to follow and assist as needed with discharge planning / needs. School Age Program Teacher: Gricelda Coto DCPIA - Discharge Planning Initial Assessment Updated by [id number]: Gricelda Coto on 11/28/18 4:01 pm * Is the patient Alert and Oriented? No * PCP PAMELA * Preadmission Environment [facility] * Facility Name [facility] [phone] * List name and contact numbers for known caregivers / representatives who currently or will assist patient after discharge: MICHAEL VALVERDE - COUSIN- [phone] * Verbal permission to speak to the caregivers and representatives has been obtained from the patient. N/A * Additional services required to return to the preadmission environment? No * Can the patient safely return to the preadmission environment? Yes Last DP export: 11/28/18 3:03 p Patient Name: CAROL VALVERDE Page [phone] at 1614 All edits/amendments must be made on the electronic document DICTATION DATE: 11/28/181613 MANAGER COSTING: SIDDHARTHA 11/28/181613 RPT#: [id number] DC DATE: STATUS: ADM IN [facility] [address] [place] [address] END OF REPORT
--- NOTE | 2018-11-28 16:30 | NUR ---
PATIENT COUSIN CALLED STATES TO DO EVERYTHING FOR PATIENT. DR. BELLE NOTIFIED. ORDERS RECEIVED.
[2018-11-28 20:16] LABS: ANION GAP 16.6 mmol/L (8-16); CALCIUM 7.9 mg/dL (8.5-10.1); CREATININE - SERUM 1.1 mg/dL (0.6-1.3); POTASSIUM - SERUM 3.3 mmol/L (3.5-5.1)
[2018-11-28 20:22] LABS: CARBON DIOXIDE 23.7 mmol/L (21.0-32.0)
[2018-11-29] VITALS (24 sets, daily range): BP systolic 107–165; BP diastolic 74–117
[2018-11-29 05:45] LABS: BASOPHILS 0.1 % (0-2); EOSINOPHILS 0.1 % (0-7); HEMATOCRIT 30.4 % (42.0-54.0); HEMOGLOBIN 9.9 g/dL (13.5-17.5); IMMATURE GRANULOCYTES 1.7 % (0-5); LYMPHOCYTES 6.7 % (15-50); MCHC 32.6 g/dL (31.0-37.0); MCV 76.8 fL (80.0-100.0); MEAN PLATELET VOLUME 10.4 fL (7.4-10.4); MONOCYTES 6.3 % (2-11); NEUTROPHILS 85.1 % (40-80); PLATELET COUNT 241 10x3/uL (130-400); RBC 3.96 10x6/uL (4.20-6.10); RDW 19.8 % (11.5-14.5); WBC 16.7 10x3/uL (4.8-10.8)
[2018-11-29 06:04] LABS: ALBUMIN 1.7 g/dL (3.4-5.0); ALKALINE PHOSPHATASE 150 U/L (46-116); ALT (SGPT) 19 U/L (10-68); BILIRUBIN - TOTAL 0.63 mg/dL (0.2-1.3); CALC OSMOLALITY 309 mosm/kg (275-300); CARBON DIOXIDE 20.6 mmol/L (21.0-32.0); CHLORIDE - SERUM 114 mmol/L (98-107); GLUCOSE 179 mg/dL (74-106); MAGNESIUM - SERUM 1.4 mg/dL (1.8-2.4); POTASSIUM - SERUM 3.7 mmol/L (3.5-5.1); SODIUM 151 mmol/L (136-145); UREA NITROGEN 29 mg/dL (7-18); eGFR NON AFRICAN AMERICAN 78 mL/min (90-120)
[2018-11-29 06:05] LABS: PHOSPHOROUS 1.9 mg/dL (2.5-4.9)
--- NOTE | 2018-11-29 09:53 | NUR ---
0700 IN BED YELLING OUT WHEN ASKED WHAT I COULD DO FOR HIM HE REQUESTED TO GET OUT OF HIS WHEELCHAIR. PATIENT WAS IN BED SEVERE CONFUSION NOTED ASSESSMENT COMPLETE
--- NOTE | 2018-11-29 09:56 | NUR ---
0900 PT REFUSED BREAKFAST
--- NOTE | 2018-11-29 12:32 | NUR ---
0905 DR BELLE AT BEDSIDE NEW ORDERS NOTED FOR ANXIETY AND PAIN
--- NOTE | 2018-11-29 12:34 | NUR ---
1100 REFUSED TO EAT LUNCH
--- NOTE | 2018-11-29 12:35 | NUR ---
1130 REFUSED ORAL CARE REMAINS CONFUSED AT THIS TIME REPOSITIONED IN BED
[2018-11-29 16:11] LABS: AEROBE ID Final report (())
[2018-11-29 18:01] LABS: ANION GAP 19.1 mmol/L (8-16); CALCIUM 7.9 mg/dL (8.5-10.1); CARBON DIOXIDE 24.2 mmol/L (21.0-32.0); CREATININE - SERUM 1.1 mg/dL (0.6-1.3); MAGNESIUM - SERUM 1.5 mg/dL (1.8-2.4); POTASSIUM - SERUM 3.3 mmol/L (3.5-5.1)
[2018-11-29 18:06] LABS: PHOSPHOROUS 2.4 mg/dL (2.5-4.9)
[2018-11-30] VITALS (22 sets, daily range): BP systolic 102–146; BP diastolic 69–105
[2018-11-30 06:16] LABS: BASOPHILS 0.1 % (0-2); EOSINOPHILS 0.2 % (0-7); HEMATOCRIT 29.1 % (42.0-54.0); HEMOGLOBIN 9.2 g/dL (13.5-17.5); IMMATURE GRANULOCYTES 0.9 % (0-5); LYMPHOCYTES 7.7 % (15-50); MCH 24.7 pg (26.0-34.0); MCHC 31.6 g/dL (31.0-37.0); MCV 78.2 fL (80.0-100.0); MEAN PLATELET VOLUME 11.2 fL (7.4-10.4); MONOCYTES 6.7 % (2-11); NEUTROPHILS 84.4 % (40-80); PLATELET COUNT 237 10x3/uL (130-400); RBC 3.72 10x6/uL (4.20-6.10); RDW 20.8 % (11.5-14.5); WBC 14.2 10x3/uL (4.8-10.8)
[2018-11-30 06:41] LABS: ALBUMIN 1.5 g/dL (3.4-5.0); ALKALINE PHOSPHATASE 122 U/L (46-116); BILIRUBIN - TOTAL 0.57 mg/dL (0.2-1.3); CALC OSMOLALITY 306 mosm/kg (275-300); CALCIUM 7.6 mg/dL (8.5-10.1); CARBON DIOXIDE 24.6 mmol/L (21.0-32.0); CHLORIDE - SERUM 114 mmol/L (98-107); CREATININE - SERUM 0.9 mg/dL (0.6-1.3); GLUCOSE 220 mg/dL (74-106); MAGNESIUM - SERUM 1.8 mg/dL (1.8-2.4); PHOSPHOROUS 2.4 mg/dL (2.5-4.9); POTASSIUM - SERUM 3.2 mmol/L (3.5-5.1); PROTEIN - SERUM 6.6 g/dL (6.4-8.2); SODIUM 150 mmol/L (136-145); UREA NITROGEN 17 mg/dL (7-18); eGFR NON AFRICAN AMERICAN 89 mL/min (90-120)
[2018-11-30 06:43] LABS: ALT (SGPT) 14 U/L (10-68)
--- NOTE | 2018-11-30 12:44 | NUR ---
Nutrition follow-up: Pt refusing meals. Confused Labs reviewed Wt: 200# Diet order regular mechanical soft with thin liquids Very large wounds RDN will order Ensure with meals. If medically feasible, may need to start nutrition support (NGT vs PEG tube) of tube feeding if pt refuses to drink supplemets. RDN following.
--- NOTE | 2018-11-30 15:08 | CN ---
PATIENT NAME:CAROL VALVERDE MEDICAL RECORD: [id number] : [birth year] LOCATION:BEED.2311 ADMIT DATE: 11/24/18 ACCOUNT: [id number] CONSULTING PHYSICIAN: TAYLOR FIELDS MD REFERRING PHYSICIAN: DOUGLAS SANTIAGO MD DATE OF CONSULTATION: 11/25/2018 CONSULT REQUESTING PHYSICIAN: Douglas Santiago MD REASON FOR CONSULTATION: Acute hypoxic respiratory failure, septic, questionable hemorrhagic shock. HISTORY OF PRESENT ILLNESS: Mr. Valverde is a 68-year-old gentleman who is a [facility] resident. The patient was found to be with mental status changes. The patient was brought into the ER. We found out the patient has UTI as well as he is severely anemic. Now, the patient is more awake and alert. He is communicating just yes and no. The patient was on hospice, but he is a full code. REVIEW OF THE SYSTEMS: As in history of present illness. PAST MEDICAL HISTORY: 1. Paraplegia. 2. Pressure sore. 3. Possible history of asbestos exposure. 4. Status post suprapubic catheter placement. 5. Colostomy. ALLERGIES: HE IS ALLERGIC TO ACETAMINOPHEN AND HYDROCODONE. MEDICATIONS: Rootdown was reviewed. PERSONAL AND SOCIAL HISTORY: The patient is an ex-smoker. He is nondrinker. FAMILY HISTORY: Noncontributory. PHYSICAL EXAMINATION: GENERAL: The patient is now lying comfortably. He is in no acute respiratory distress. VITAL SIGNS: The blood pressure is 80 to 100 over 36, pulse is 98, respiration 18, temperature is 99, and SpO2 is 92% to 98% on 100% nonrebreather. HEENT: Conjunctivae are pink. Sclerae are not icteric. There is anemia. NECK: Neck is supple. No JVD. CHEST: There is coarse breath sound. No wheezing. HEART: Rhythm regular. Normal sound. No murmur. ABDOMEN: Abdomen is soft. Bowel sounds present. No hepatosplenomegaly. RECTAL: Deferred. EXTREMITIES: No cyanosis. No clubbing. Pedal edema 1+. CENTRAL NERVOUS SYSTEM: The patient is sleepy, but arousable. He is paraplegic. SKIN: He has pressure sore. DIAGNOSTIC DATA: Chest radiograph; there is no acute infiltrate. LABORATORY DATA: CBC; WBC is 20.6, hemoglobin 6.6, hematocrit 21.8, and CONSULT REPORT [id number] CAROL VALVERDE platelet count 283. Chemistry; sodium 129, potassium 5.3, BUN is 116, and creatinine 2.5. IMPRESSION: 1. Acute hypoxic respiratory failure. 2. Septic shock. 3. Hemorrhagic shock. 4. Rule out GI bleed. 5. Anemia secondary to possible bleeding. 6. Acute kidney injury, consider acute tubular necrosis. 7. UTI. 8. Acute mental status changes. 9. Leukocytosis. 10. Hyponatremia. 11. Hyperkalemia. RECOMMENDATION: 1. Continue empiric Zosyn and vancomycin. 2. Transfuse 2 units of PRBC. 3. Levophed to keep the systolic blood pressure above 90. 4. Supplemental oxygen. 5. Albuterol/ipratropium nebulizer. 6. GI and nephrology have been consulted. 7. Followup labs and chest radiograph. 8. The prognosis is guarded. Dr. Santiago, thank you for involving me in the care of Mr. Valverde. TRANSINT:[id number] Voice Confirmation ID: [id number] DOCUMENT ID: [id number] TAYLOR FIELDS MD at 1508 CC: [id number] DICTATION DATE: 11/25/18 112 MACHINE HOOP MAKER: 11/25/18 1853 ADM IN [place] [id number] [place] [id number]
--- NOTE | 2018-11-30 18:35 | NUR ---
1330 RESTING QUIETLY NO DISTRESS NOTED
--- NOTE | 2018-11-30 18:36 | NUR ---
1530 AWAKENS TO VOICE REPOSITIONED IN BED
--- NOTE | 2018-11-30 18:36 | NUR ---
1730 FOLLOWS COMMANDS REMAINS CONFUSED REPOSITIONED
--- NOTE | 2018-11-30 18:37 | NUR ---
0900 CLEANSED WOUNDS WITH NS AND CHANGED DRESSINGS TO BLE DR MAURER. LUIS ANTONIO PAZ AT [facility] TO PERFORM BEDSIDE DEBRIDEMENT
--- NOTE | 2018-11-30 18:37 | NUR ---
0700 AWAKE ALERT REMAINS CONFUSED REPOSITIONED IN BED ASSESSMENT COMPLETE
--- NOTE | 2018-11-30 18:41 | NUR ---
1100 TOTAL FEED ONLY ATE SEVERAL BITES OF LUNCH
--- NOTE | 2018-11-30 18:43 | NUR ---
1500 HELD ALL ATIVAN TODAY PATIENT REMAIN CALM AND COOPERATIVE
--- NOTE | 2018-11-30 18:43 | NUR ---
1300 RESTING QUIETLY NO DISTRESS NOTED
--- NOTE | 2018-11-30 18:44 | NUR ---
1700 REPOSITIONED IN BED EMPTIED COLOSTOMY OF [address] TORRES AWARE
[2018-12-01] VITALS (24 sets, daily range): BP systolic 101–153; BP diastolic 67–109
[2018-12-01 05:39] LABS: BASOPHILS 0.1 % (0-2); HEMATOCRIT 30.3 % (42.0-54.0); HEMOGLOBIN 9.4 g/dL (13.5-17.5); IMMATURE GRANULOCYTES 0.4 % (0-5); LYMPHOCYTES 9.1 % (15-50); MCH 24.2 pg (26.0-34.0); MCV 78.1 fL (80.0-100.0); MEAN PLATELET VOLUME 11.7 fL (7.4-10.4); MONOCYTES 3.8 % (2-11); NEUTROPHILS 85.6 % (40-80); PLATELET COUNT 248 10x3/uL (130-400); RBC 3.88 10x6/uL (4.20-6.10); WBC 16.2 10x3/uL (4.8-10.8)
[2018-12-01 06:19] LABS: CALC OSMOLALITY 299 mosm/kg (275-300); CALCIUM 7.4 mg/dL (8.5-10.1); CARBON DIOXIDE 28.2 mmol/L (21.0-32.0); CHLORIDE - SERUM 111 mmol/L (98-107); CREATININE - SERUM 0.9 mg/dL (0.6-1.3); GLUCOSE 186 mg/dL (74-106); MAGNESIUM - SERUM 1.4 mg/dL (1.8-2.4); PHOSPHOROUS 2.3 mg/dL (2.5-4.9); SODIUM 148 mmol/L (136-145); UREA NITROGEN 14 mg/dL (7-18); eGFR NON AFRICAN AMERICAN 89 mL/min (90-120)
[2018-12-01 06:20] LABS: POTASSIUM - SERUM 2.9 mmol/L (3.5-5.1)
--- NOTE | 2018-12-01 08:50 | NUR ---
UP IN BED AWAKE AT THIS TIME. NO ACUTE DISTRESS NOTED. PT NOTED PULLING AT LINES AND TUBES. REORIENTATION PROVIDED TO PT, PT STILL CONFUSED. ON ELECTROLTE PROTOCOL, POTASSIUM, MAGNESIUM, AND PHOSPHORUS REPLACED PER PROTOCOL ORDERS. WILL CONTINUE PLAN OF CARE.
--- NOTE | 2018-12-01 10:48 | NUR ---
LYING IN BED WITH EYES OPEN AT THIS TIME. PT CONFUSED TO TIME, PERSON, SITUATION, AND LOCATION. REORIENTATION PROVIDED UNSUCCESSFULLY. ORAL CARE PROVIDED Q2H. PT TURNED Q2H. WILL CONTINUE PLAN OF CARE.
--- NOTE | 2018-12-01 12:37 | NUR ---
LYING IN BED AWAKE AT THIS TIME. NO ACUTE DISTRESS NOTED. PT TURNED Q2H. PT NOTED TO YELL "HELP" OCCASIONALLY, WHEN ASKED PT WHAT HE NEEDS OR IF ANYTHING IS WRONG PT DID NOT ANSWER. PT TURNED Q2H. ORAL CARE PROVIDED Q2H. WILL CONTINUE PLAN OF CARE.
--- NOTE | 2018-12-01 14:38 | NUR ---
RESTING IN BED WITH EYES CLOSED, RESPIRATIONS STEADY AND UNLABORED RATE. CALL LIGHT IN REACH. AWAKENS EASILY WHEN SPOKEN TO. NO ACUTE DISTRESS NOTED. WILL CONTINUE PLAN OF CARE.
[2018-12-01 16:23] LABS: CALC OSMOLALITY 289 mosm/kg (275-300); CALCIUM 7.2 mg/dL (8.5-10.1); CARBON DIOXIDE 26.6 mmol/L (21.0-32.0); CHLORIDE - SERUM 108 mmol/L (98-107); CREATININE - SERUM 0.9 mg/dL (0.6-1.3); GLUCOSE 192 mg/dL (74-106); MAGNESIUM - SERUM 1.6 mg/dL (1.8-2.4); SODIUM 143 mmol/L (136-145); UREA NITROGEN 12 mg/dL (7-18); eGFR NON AFRICAN AMERICAN 89 mL/min (90-120)
[2018-12-01 16:24] LABS: PHOSPHOROUS 4.4 mg/dL (2.5-4.9); POTASSIUM - SERUM 3.5 mmol/L (3.5-5.1)
--- NOTE | 2018-12-01 18:21 | NUR ---
BED BATH AND TOTAL LINEN CHANGE PROVIDED AT THIS TIME. NO ACUTE DISTRESS NOTED. TIN CARE AND BROWN CARE PROVIDED. ORAL CARE PROVIDED. PT TURNED Q2H. NO ACUTE DISTRESS NOTED. WILL CONTINUE PLAN OF CARE.
--- NOTE | 2018-12-01 19:45 | NUR ---
REPORT REC'D AND CARE ASSUMED, REC'D PT ON ROOM AIR, CALLING OUT HELP, PT ORIENTED TO PERSON ONLY, ECHOLALIA PRESENT AT TIMES, LIJTL DRSG CDI WITH NS @ 15CC/HR AND D5W WITH 20KCL @ 75CC/HR, BILAT MOBILE PET GROOMER EQUAL AND STRONG, PT CRIES OUT WITH REPOSITIONING, WHEN ASKED IF HURTING STATES "NO", SUPRAPUBIC CATHETER WITH CLOUDY URINE, DRSG TO LEFT FOOT AND HEEL CDI, DRSG TO RIGHT LOWER LEG CDI, MEPILEX TO RIGHT FOOT, LEFT KNEE ABRASION WITH SCABS, HEELS BRIDGED, LARGE DRSG TO BUTTOCKS CDI, AIR OVERLAY MATTRESS IN USE, BILAT SOFT WRIST RESTRAINTS INTACT, VISIBLE TO NURSES STATION.
--- NOTE | 2018-12-01 21:00 | NUR ---
PT CALLING HELP, PULLING AT RESTRAINTS, EXPLAINED TO PT WHY RESTRAINTS WERE ON AT THIS TIME, CUSSING AT NURSE, PT REPOSITIONED IN BED, ARMS ELEVATED ON PILLOWS, EVENING PROTONIX PROVIDED WITH SIPS OF WATER, TOLERATED WELL, WILL CONT TO MONITOR FOR CHANGES.
--- NOTE | 2018-12-01 23:30 | NUR ---
REASSESSMENT COMPLETED, PT REMAINS CONFUSED, PULLING AT ANY LINES HE CAN REACH WITH RESTRAINTS IN PLACE, ATTEMPTS TO REORIENT UNSUCCSESSFUL, PT'S EXT'S POSITIONED ON PILLOWS, BP STABLE.
[2018-12-02] VITALS (24 sets, daily range): BP systolic 73–126; BP diastolic 56–96
--- NOTE | 2018-12-02 01:16 | NUR ---
PT AGITATED AND HOLLERING AT PEOPLED NOT IN THE ROOM, 1MG ATIVAN GIVEN SLOW IVP FOR AGITATION.
--- NOTE | 2018-12-02 03:00 | NUR ---
REASSESSMENT COMPLETED, PT RESTING EYES CLOSED, RESP EVEN AND UNLABORED, VSS, SR UP X 2, CALL LIGHT IN REACH.
--- NOTE | 2018-12-02 04:00 | NUR ---
RADIOLOGY AT BS FOR CXR
[2018-12-02 04:57] LABS: BASOPHILS 0.1 % (0-2); EOSINOPHILS 1.9 % (0-7); HEMATOCRIT 30.6 % (42.0-54.0); HEMOGLOBIN 9.7 g/dL (13.5-17.5); IMMATURE GRANULOCYTES 0.4 % (0-5); LYMPHOCYTES 10.8 % (15-50); MCH 24.7 pg (26.0-34.0); MCHC 31.7 g/dL (31.0-37.0); MCV 78.1 fL (80.0-100.0); MEAN PLATELET VOLUME 11.4 fL (7.4-10.4); MONOCYTES 3.9 % (2-11); NEUTROPHILS 82.9 % (40-80); PLATELET COUNT 235 10x3/uL (130-400); RBC 3.92 10x6/uL (4.20-6.10); RDW 21.1 % (11.5-14.5); WBC 16.1 10x3/uL (4.8-10.8)
[2018-12-02 05:15] LABS: CALC OSMOLALITY 280 mosm/kg (275-300); CALCIUM 7.4 mg/dL (8.5-10.1); CARBON DIOXIDE 24.7 mmol/L (21.0-32.0); CHLORIDE - SERUM 104 mmol/L (98-107); CREATININE - SERUM 0.9 mg/dL (0.6-1.3); GLUCOSE 180 mg/dL (74-106); PHOSPHOROUS 3.5 mg/dL (2.5-4.9); POTASSIUM - SERUM 3.7 mmol/L (3.5-5.1); SODIUM 138 mmol/L (136-145); UREA NITROGEN 12 mg/dL (7-18); eGFR NON AFRICAN AMERICAN 89 mL/min (90-120)
--- NOTE | 2018-12-02 05:30 | NUR ---
COLOSTOMY LEAKING, COMPLETE BATH AND LINEN CHANGE GIVEN, BUTTOCK DRSG CHANGED, WET TO DRY DRSG CHANGE TO UNSTAGEABLE DECUBITUS, COVERED WITH DRY 4X4'S AND ABD PADS, SECURED WITH MEDIPORE TAPE.
--- NOTE | 2018-12-02 06:55 | NUR ---
AM MEDS GIVEN, PT RESTING ON RIGHT SIDE, VSS, VISIBLE TO NURSES STATION.
--- NOTE | 2018-12-02 08:38 | NUR ---
RESTING IN BED AT THIS TIME, EYES CLOSED. RESPIRATIONS STEADY AND UNLABORED. AWAKENS WHEN SPOKEN TO. NO ACUTE DISTRESS NOTED. WILL CONTINUE PLAN OF CARE.
--- NOTE | 2018-12-02 10:21 | NUR ---
CALLED PTS COUSIN (EMERGENCY CONTACT) TO SEE WHEN HE PLANS TO COME SEE PT TO SPEAK WITH PHYSICAINS. NO ANSWER RECIEVED. LEFT VOICEMAIL.
--- NOTE | 2018-12-02 11:23 | NUR ---
SPOKE WITH PTS COUSIN, HE STATES HE HAS NOT BEEN ABLE TO MAKE IT DOWN TO SEE PT YET BECAUSE OF FLOODING BUT HE WILL TRY WITHIN THE NEXT FEW DAYS. ALSO STATED THAT HE WOULD BE BY THE PHONE FOR IF PHYSICIANS NEED TO SPEAK WITH HIS FOR UPDATES. NO ACUTE DISTRESS NOTED. WILL CONTINUE PLAN OF CARE.
--- NOTE | 2018-12-02 13:31 | NUR ---
UP IN BED RESTING AT THIS TIME. RESPIRATION STEADY AND UNLABORED RATE. AWAKENS WHEN SPOKEN TO. NO ACUTE DISTRESS NOTED. WILL CONTINUE PLAN OF CARE. OCCASIONALLY YELLS OUT "HELP" WHEN ASKING WHAT HE NEEDS HELP WITH HE STATES "I DONT NEED HELP." REPOSITIONING PROVIDED IS PROVIDED Q2H. ORAL CARE PROVIDED. TIN CARE AND BROWN CARE PROVIDED. NO ACUTE DISTRESS NOTED. WILL CONTINUE PLAN OF CARE.
--- NOTE | 2018-12-02 15:36 | NUR ---
UP IN BED RESTING AT THIS TIME. RESPIRATIONS STEADY AND UNLABORED. NO ACUTE DISTRESS NOTED. AWAKENS EASILY WHEN SPOKEN TO. WILL CONTINUE PLAN OF CARE.
--- NOTE | 2018-12-02 17:37 | NUR ---
AWAKE IN BED AT THIS TIME. NO ACUTE DISTRESS NOTED. PT TURNED Q2H. CONFUSED, REORIENTATION PROVIDED. WILL CONTINUE PLAN OF CARE.
--- NOTE | 2018-12-02 19:15 | NUR ---
RECEIVED CARE FROM DAY NURSE. LYING IN BED. RESTRAINTS IN PLACE TO BILATERAL WRIST. SUPRA PUBIC CATH TO GRAVITY. OSTOMY IN PLACE. IV TO LEFT TLIJ PATENT. MONITORS IN PLACE. CALL LIGHT AT SIDE.
--- NOTE | 2018-12-02 20:32 | NUR ---
REFUSED PM PROTONIX. TURNED IN BED. RESTRAINTS IN PLACE.
--- NOTE | 2018-12-02 23:00 | NUR ---
RESTING QUIETLY. RESTRAINTS IN PLACE AND DOCUMENTED. ALL NEEDS MET AT THIS TIME.
[2018-12-03] VITALS (17 sets, daily range): BP systolic 87–157; BP diastolic 56–97
--- NOTE | 2018-12-03 01:00 | NUR ---
RESTING QUIETLY WITH EYES CLOSED. RESP EVEN AND UNLABORED. CALL LIGTH AT SIDE. NO CHANGES AT THIS TIME. WILL CONTINUE TO MONITOR.
--- NOTE | 2018-12-03 03:30 | NUR ---
TURNED IN BED. NO NEEDS VOICED. IV INFUSING PER ORDER.
[2018-12-03 04:37] LABS: BASOPHILS 0.1 % (0-2); EOSINOPHILS 2.1 % (0-7); HEMATOCRIT 29.8 % (42.0-54.0); HEMOGLOBIN 9.4 g/dL (13.5-17.5); IMMATURE GRANULOCYTES 0.5 % (0-5); MCH 24.9 pg (26.0-34.0); MCHC 31.5 g/dL (31.0-37.0); MEAN PLATELET VOLUME 11.1 fL (7.4-10.4); MONOCYTES 3.8 % (2-11); NEUTROPHILS 81.5 % (40-80); PLATELET COUNT 227 10x3/uL (130-400); RBC 3.77 10x6/uL (4.20-6.10); RDW 21.4 % (11.5-14.5); WBC 15.3 10x3/uL (4.8-10.8)
[2018-12-03 04:49] LABS: CALC OSMOLALITY 279 mosm/kg (275-300); CALCIUM 7.2 mg/dL (8.5-10.1); CARBON DIOXIDE 23.9 mmol/L (21.0-32.0); CHLORIDE - SERUM 104 mmol/L (98-107); CREATININE - SERUM 0.9 mg/dL (0.6-1.3); GLUCOSE 154 mg/dL (74-106); MAGNESIUM - SERUM 1.5 mg/dL (1.8-2.4); PHOSPHOROUS 3.8 mg/dL (2.5-4.9); POTASSIUM - SERUM 3.2 mmol/L (3.5-5.1); SODIUM 139 mmol/L (136-145); UREA NITROGEN 11 mg/dL (7-18); eGFR NON AFRICAN AMERICAN 89 mL/min (90-120)
--- NOTE | 2018-12-03 05:00 | NUR ---
EYES CLOSED. RESP EVEN AND UNLABORED. ALL NEEDS MET.
--- NOTE | 2018-12-03 07:14 | NUR ---
REPORT RECEIVED. PT RESTING QUIETLY IN BED. PT HAS LEFT IJ. PT HAS SUPRAPUBIC CATHER AND A COLOSTOMY. HEAD TO TOE ASSESSMENT PERFORMED AND VSS. WILL CONTINUE TO MONITOR.
--- NOTE | 2018-12-03 09:30 | NUR ---
PT RESTING QUIETLY. VSS. WILL MONITOR.
--- NOTE | 2018-12-03 09:47 | NUR ---
NUTRITION F/U NURSING REPORTS PT REFUSED BREAKFAST THIS AM. CURRENTLY SLEEPING. WILL CONTINUE TO MONITOR PT PROGRESS. RD FOLLOWING
--- NOTE | 2018-12-03 11:15 | NUR ---
PT CONFUSED, BUT PLEASANT AT THIS TIME. VSS. WILL CONTINUE TO MONITOR.
--- NOTE | 2018-12-03 13:15 | NUR ---
PT RESTING. VSS. NO COMPLAINTS OR NEEDS AT THIS TIME.
--- NOTE | 2018-12-03 15:50 | NUR ---
POTASSIUM UP TO 3.8. DR VIDES CHANGED UP ANTIBIOTICS.
--- NOTE | 2018-12-03 17:30 | NUR ---
PT RESTING QUIETLY. VSS.
--- NOTE | 2018-12-03 19:00 | NUR ---
REPORT RECEIVED. RECEIVED PATIENT AWAKE AND ALERT. ORIENTED TO SELF ONLY. SPEECH CLEAR. DENIES PAIN. ASSESSMENT COMPLETED PER FLOW SHEET. VSS. MONITORS CONNECTED TO PATIENT WITH ALARMS SET. CALL LIGHT IN REACH. SR UP X 2. IV FLUIDS/TUBING LABELED/DATED AND CURRENT.
--- NOTE | 2018-12-03 21:00 | NUR ---
RESTING WITH EYES CLOSED. EASILY ROUSED AND ALERT. VSS. NO DISTRESS OBSERVED
--- NOTE | 2018-12-03 23:00 | NUR ---
REASSESSMENT COMPLETED PER FLOW SHEET WITH NO CHANGES OR DISTRESS OBSERVED. VSS.
[2018-12-04] VITALS (24 sets, daily range): BP systolic 83–144; BP diastolic 50–83
--- NOTE | 2018-12-04 01:00 | NUR ---
AWAKE AND ALERT. VSS. NO DISTRESS OBSERVED
--- NOTE | 2018-12-04 03:00 | NUR ---
REASSESSMENT COMPLETED PER FLWO SHEET WITH NO CHANGES OBSERVED. CALL LIGHT IN REACH.
[2018-12-04 05:42] LABS: BASOPHILS 0 % (0-2); EOSINOPHILS 2.5 % (0-7); HEMOGLOBIN 9.5 g/dL (13.5-17.5); IMMATURE GRANULOCYTES 0.3 % (0-5); LYMPHOCYTES 12.8 % (15-50); MCH 24.5 pg (26.0-34.0); MCHC 30.6 g/dL (31.0-37.0); MCV 80.1 fL (80.0-100.0); MONOCYTES 5.3 % (2-11); NEUTROPHILS 79.1 % (40-80); RBC 3.87 10x6/uL (4.20-6.10); RDW 21.4 % (11.5-14.5); WBC 13.9 10x3/uL (4.8-10.8)
[2018-12-04 05:55] LABS: PLATELET COUNT 306 10x3/uL (130-400)
[2018-12-04 06:00] LABS: CALC OSMOLALITY 280 mosm/kg (275-300); CALCIUM 7.5 mg/dL (8.5-10.1); CARBON DIOXIDE 21.6 mmol/L (21.0-32.0); CHLORIDE - SERUM 106 mmol/L (98-107); CREATINE KINASE 25 UL (21-232); CREATININE - SERUM 0.8 mg/dL (0.6-1.3); GLUCOSE 130 mg/dL (74-106); MAGNESIUM - SERUM 1.7 mg/dL (1.8-2.4); PHOSPHOROUS 2.9 mg/dL (2.5-4.9); SODIUM 140 mmol/L (136-145); UREA NITROGEN 13 mg/dL (7-18); eGFR NON AFRICAN AMERICAN > 90 mL/min (90-120)
[2018-12-04 06:07] LABS: POTASSIUM - SERUM 3.1 mmol/L (3.5-5.1)
--- NOTE | 2018-12-04 07:05 | NUR ---
REPORT RECIEVED, SHIFT ASSESSMENT COMPLETE, PT IS CONFUSED LYING IN BED, ALL PPP, VSS, WILL CON'T TO MONITOR
--- NOTE | 2018-12-04 07:53 | NUR ---
VSS. AWAKE AND ALERT.
--- NOTE | 2018-12-04 09:00 | NUR ---
BOGDAN LEATHER PRODUCTION WORKER AT BEDSIDE, UPDATE GIVEN
--- NOTE | 2018-12-04 11:15 | NUR ---
COMPLETE BATH AND LINEN CHANGE, DRSGS CHANGED TO LEFT FOOT AND BUTTOCK, PT TOLERATED WELL
--- NOTE | 2018-12-04 13:16 | NUR ---
UPDATE GIVEN TO RUSSEL (COUSIN), STATES "I WILL BE THERE TOMORROW"
[2018-12-04 16:56] LABS: CALC OSMOLALITY 277 mosm/kg (275-300); CALCIUM 7.4 mg/dL (8.5-10.1); CARBON DIOXIDE 18.4 mmol/L (21.0-32.0); CHLORIDE - SERUM 104 mmol/L (98-107); CREATININE - SERUM 0.6 mg/dL (0.6-1.3); GLUCOSE 129 mg/dL (74-106); POTASSIUM - SERUM 4.2 mmol/L (3.5-5.1); SODIUM 138 mmol/L (136-145); UREA NITROGEN 13 mg/dL (7-18); eGFR NON AFRICAN AMERICAN > 90 mL/min (90-120)
--- NOTE | 2018-12-04 17:15 | NUR ---
DR. VIDES AT BEDSIDE, UPDATE GIVEN
--- NOTE | 2018-12-04 19:00 | NUR ---
REPORT RECEIVED. RECEIVED PATIENT AWAKE AND ALERT. ORIENTED TO SELF. SPEECH CLEAR.. VSS. MONITORS CONNECTED TO PT WITH ALARMS SET. ASSESSMENT COMPLETED PER FLOW SHEET WITH NO DISTRESS OBSERVED. CALL LIGHT IN REACH. CONTACT ISOLATION PRECAUTIONS OBSERVED.
--- NOTE | 2018-12-04 21:15 | NUR ---
AWAKE AND ALERT. PO MEDS TAKEN WITHOUT DIFF. CBG 125. VSS. NO DISTRESS OBSERVED.
--- NOTE | 2018-12-04 23:00 | NUR ---
REASSESSMENT COMPLETED PER FLOW SHEET WITH NO CHANGES OR DISTRESS OBSERVED. VSS. CALL LIGHT IN REACH
[2018-12-05] VITALS (17 sets, daily range): BP systolic 79–127; BP diastolic 45–95
--- NOTE | 2018-12-05 01:00 | NUR ---
AWAKE AND ALERT. VSS. NO DISTRESS OBSERVED. CALL LIGHT IN REACH.
--- NOTE | 2018-12-05 03:00 | NUR ---
REASSESSMENT COMPLETED PER FLOW SHEET WITH NO CHANGES OR DISTRESS OBSERVED. CALL LIGHT IN REACH. VSS.
--- NOTE | 2018-12-05 05:00 | NUR ---
AWAKE AND ALERT. VSS. NO DISTRESS OBSERVED
[2018-12-05 05:03] LABS: BASOPHILS 0.1 % (0-2); EOSINOPHILS 1.1 % (0-7); HEMATOCRIT 29.4 % (42.0-54.0); HEMOGLOBIN 9.1 g/dL (13.5-17.5); IMMATURE GRANULOCYTES 0.2 % (0-5); LYMPHOCYTES 11.6 % (15-50); MCH 24.8 pg (26.0-34.0); MCV 80.1 fL (80.0-100.0); MEAN PLATELET VOLUME 10.7 fL (7.4-10.4); MONOCYTES 6.8 % (2-11); NEUTROPHILS 80.2 % (40-80); PLATELET COUNT 339 10x3/uL (130-400); RBC 3.67 10x6/uL (4.20-6.10); RDW 20.8 % (11.5-14.5); WBC 12.4 10x3/uL (4.8-10.8)
[2018-12-05 05:13] LABS: CALC OSMOLALITY 281 mosm/kg (275-300); CALCIUM 7.4 mg/dL (8.5-10.1); CARBON DIOXIDE 22.3 mmol/L (21.0-32.0); CHLORIDE - SERUM 106 mmol/L (98-107); GLUCOSE 166 mg/dL (74-106); MAGNESIUM - SERUM 1.3 mg/dL (1.8-2.4); SODIUM 139 mmol/L (136-145); UREA NITROGEN 12 mg/dL (7-18)
[2018-12-05 05:32] LABS: CREATININE - SERUM 0.8 mg/dL (0.6-1.3); PHOSPHOROUS 2.1 mg/dL (2.5-4.9); POTASSIUM - SERUM 3.3 mmol/L (3.5-5.1); eGFR NON AFRICAN AMERICAN > 90 mL/min (90-120)
--- NOTE | 2018-12-05 07:00 | NUR ---
REPORT RECIEVED, SHIFT ASSESSMENT COMPLETE, PT IS CONFUSED AT THIS TIME, ATTEMPT TO REORIENT, VSS, WILL CON'T TO MONITOR
--- NOTE | 2018-12-05 09:00 | NUR ---
PT AWAKE AT THIS TIME, WATCHING TV, DENIES ANY NEEDS
--- NOTE | 2018-12-05 10:03 | NUR ---
NUTRITION F/U PT TOLERATING REG [facility] SOFT DIET. FAIR INTAKE BREAKFAST THIS AM. WILL CONTINUE TO PROVIDE DIET, MONITOR PT PROGRESS. RD FOLLOWING
--- NOTE | 2018-12-05 11:15 | NUR ---
REASSESSMENT COMPLETE, NO CHANGES NOTED, WILL CON'T TO MONITOR
--- NOTE | 2018-12-05 13:00 | NUR ---
PT RESTING AT THIS TIME, WILL CON'T TO MONITOR
--- NOTE | 2018-12-05 15:00 | NUR ---
COMPLETE BATH AND LINEN CHANGE, BUTTOCK AND LEFT FOOT DRSG CHANGED AT THIS TIME, PT TOLERATED WELL
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
[2018-12-06 04:00] VITALS: BP 96/54
[2018-12-06 06:00] LABS: HEMATOCRIT 28.9 % (42.0-54.0); HEMOGLOBIN 8.9 g/dL (13.5-17.5); MCH 24.8 pg (26.0-34.0); MCHC 30.8 g/dL (31.0-37.0); MCV 80.5 fL (80.0-100.0); MEAN PLATELET VOLUME 10.6 fL (7.4-10.4); PLATELET COUNT 401 10x3/uL (130-400); RBC 3.59 10x6/uL (4.20-6.10); RDW 20.9 % (11.5-14.5); WBC 10.7 10x3/uL (4.8-10.8)
--- NOTE | 2018-12-06 06:01 | NUR ---
I have reviewed this patient and I concur with the Shift Assessment completed by the Licensed Practical Nurse today this shift.
[2018-12-06 06:10] LABS: CALC OSMOLALITY 278 mosm/kg (275-300); CALCIUM 7.3 mg/dL (8.5-10.1); CARBON DIOXIDE 25.4 mmol/L (21.0-32.0); CHLORIDE - SERUM 106 mmol/L (98-107); CREATININE - SERUM 0.7 mg/dL (0.6-1.3); POTASSIUM - SERUM 3.4 mmol/L (3.5-5.1); SODIUM 139 mmol/L (136-145); UREA NITROGEN 12 mg/dL (7-18); eGFR NON AFRICAN AMERICAN > 90 mL/min (90-120)
[2018-12-06 06:12] LABS: GLUCOSE 118 mg/dL (74-106)
[2018-12-06 07:48] LABS: LYMPHOCYTES 8 % (15-50); NEUTROPHILS 92 % (40-80)
[2018-12-06 07:49] LABS: PLATELET ESTIMATE NORMAL
[2018-12-06 08:35] VITALS: BP 114/60
[2018-12-06 12:37] VITALS: BP 105/66
--- NOTE | 2018-12-06 13:58 | MORECARE ---
CASE MANAGEMENT DISCHARGE SUMMARY PATIENT: CAROL VALVERDE UNIT: [id number] ADM DATE: 11/24/18 AGE: 68 : 48 SEX: M ROOM/BED: D.2235 AUTHOR: ARLYNDOC PHYSICIAN: REFERRING PHYSICIAN: ALBERTO SANTIAGO MD DATE OF SERVICE: 12/06/18 Discharge Plan Patient Name: CAROL VALVERDE Facility: [facility]:[place] : 1950 Planned Disposition: Nursing Facility TATE Cert Anticipated Discharge Date: Discharge Date: Expected LOS: Initial Reviewer: [email or web address] Initial Review Date: 11/28/2018 Generated: 12/06/18 2:58 pm DCP- Discharge Planning Updated by [email or web address]: Gricelda Coto on 11/28/18 3:[address] Patient Name: CAROL VALVERDE Admission Status: ER Accout number: [id number] Admission Date: 11-24-2018 : 1950 Admission Diagnosis:SEPSIS, UNSPECIFIED ORGANISM Attending: ALBERTO SANTIAGO Current LOS: 4 Anticipated DC Date: Planned Disposition: Nursing Facility TATE Cert Primary Insurance: [employer] Discharge Planning Comments: CM attempted to met with patient he was yelling out and refused to speak with me. 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 He is a and receiving benefits[place] and patient is on list. Michael Valverde (cousin) is patients next of kin [phone]. Plan at this time is for patient to return to the [facility] upon discharge. CM will continue to follow and assist as needed with discharge planning / needs. Special Events Director: Gricelda Coto DCPIA - Discharge Planning Initial Assessment Updated by [email or web address]: Gricelda Coto on 11/28/18 4:01 pm * Is the patient Alert and Oriented? No * PCP PAMELA * Preadmission Environment Nursery Worker [facility] * Facility Name [facility] [phone] * List name and contact numbers for known caregivers / representatives who currently or will assist patient after discharge: MICHAEL VALVERDE - COUSIN- [phone] * Verbal permission to speak to the caregivers and representatives has been obtained from the patient. N/A * Additional services required to return to the preadmission environment? No * Can the patient safely return to the preadmission environment? Yes External Providers [facility] Contact Date: Service Request Date: Service Type: Resolution: Reviewer: Comments: Last DP export: 11/28/18 3:14 p Patient Name: CAROL VALVERDE Page [phone] at 1358 All edits/amendments must be made on the electronic document DICTATION DATE: 12/06/18 1358 NITRIC ACID CONCENTRATOR OPERATOR: SIDDHARTHA 12/06/18 1358 RPT#: [id number] DC DATE: STATUS: ADM IN [facility] [address] [place] [address] END OF REPORT
[2018-12-06 17:47] VITALS: BP 110/62
--- NOTE | 2018-12-06 17:49 | NUR ---
PT IS YELLING LOUDLY AND WANTING SCISSORS," TO CUT THINGS." HE IS BECOMING MORE ANGRY. DECLINED BLOOD SUGAR CHECK.DOOR OPEN TO MONITOR FOR CHANGE.
[2018-12-06 20:00] VITALS: BP 108/53
[2018-12-07] VITALS (18 sets, daily range): BP systolic 86–138; BP diastolic 59–92
--- NOTE | 2018-12-07 02:45 | NUR ---
DRESSING TO COCCYX CHANGED PER ORDER WITH RN. DRESSING TO LEFT FOOT ALSO CHANGED. BATH GIVEN, COLOSTOMY BAG CHANGED DUE TO LEAKING. WILL CONTINUE TO MONITOR.
--- NOTE | 2018-12-07 04:01 | NUR ---
I CONCUR WITH PORTUGUESE TUTOR ASSESSMENT.
--- NOTE | 2018-12-07 07:52 | NUR ---
LETHARGIC, NON-VERBAL RESPONSE TO VERBAL OR PAINFUL STIMULI, SKIN PALE IN COLOR, COOL TO TOUCH EVEN SHALLOW UNLABORED BREATHING, BRADYCARDIC. HYPOTENSIVE, ON ROOM AIR, IV TO RIGHT FOREARM PATENT, INFUSING NS AT 30ML/HR. BED LOWERED AND LOCKED, CALL LIGHT WITHIN REACH. CPOC,
--- NOTE | 2018-12-07 07:59 | NUR ---
FEET ELEVATED ABOVE THE HEART, WILL RECHECK BLOOD PRESSURE.
--- NOTE | 2018-12-07 08:22 | NUR ---
VERBALLY RESPONSIVE NOW TO STIMULI. RECHECK BP 90/60 MANUAL. CAMRON OSORIO APRN, NEW ORDER TO TRANSFER TO ICU FOR LETHERAGY AND POSSIBLE SEPSIS. PT IS LETHARGIC. BED LOWERED AND LOCKED. CALL LIGHT WITHIN REACH.
[2018-12-07 08:43] LABS: BASOPHILS 0.2 % (0-2); EOSINOPHILS 1.4 % (0-7); HEMOGLOBIN 9.6 g/dL (13.5-17.5); IMMATURE GRANULOCYTES 0.3 % (0-5); LYMPHOCYTES 15.9 % (15-50); MCH 24.7 pg (26.0-34.0); MCV 79.9 fL (80.0-100.0); MEAN PLATELET VOLUME 10.7 fL (7.4-10.4); MONOCYTES 11.8 % (2-11); NEUTROPHILS 70.4 % (40-80); PLATELET COUNT 376 10x3/uL (130-400); RBC 3.88 10x6/uL (4.20-6.10); RDW 20.7 % (11.5-14.5); WBC 10.2 10x3/uL (4.8-10.8)
[2018-12-07 08:51] LABS: CALC OSMOLALITY 278 mosm/kg (275-300); CALCIUM 7.6 mg/dL (8.5-10.1); CARBON DIOXIDE 24.2 mmol/L (21.0-32.0); CHLORIDE - SERUM 105 mmol/L (98-107); CREATININE - SERUM 0.8 mg/dL (0.6-1.3); GLUCOSE 138 mg/dL (74-106); POTASSIUM - SERUM 3.9 mmol/L (3.5-5.1); SODIUM 139 mmol/L (136-145); UREA NITROGEN 10 mg/dL (7-18); eGFR NON AFRICAN AMERICAN > 90 mL/min (90-120)
--- NOTE | 2018-12-07 08:59 | NUR ---
CALLED AND GAVE REPORT TO JACOB. DENIES ANY CURRENT QUESTIONS. WILL TRANSPORT PATIENT VIA BED.
--- NOTE | 2018-12-07 09:17 | NUR ---
PT ARRIVED ON UNIT VIA BED, HOOKED TO MONITORS, PT IS AROUSED TO VOICE, YELLING OUT CUSS WORDS, ALL PPP, VSS
--- NOTE | 2018-12-07 11:07 | NUR ---
PT IS DIAPHORETIC. FSBS 147. ABG'S DRAWN. P02 [id number]. 2LNC PLACED AND PAGED DR SANTIAGO. AWAITING CALL BACK.
--- NOTE | 2018-12-07 11:16 | NUR ---
SPOKE TO BOGDAN. RECONSULT PULMONARY ORDERED. PAGED DR BRAR.
--- NOTE | 2018-12-07 12:29 | NUR ---
VSS. REPAGED DR BRAR. 02 2LNC. LINENS WET WITH URINE. BATHED AND LINENS CHANGED. AWAITING CALL BACK FROM DR BRAR. PAGED DR KUMAR NETWORK OPERATIONS ANALYST FOR SURGERY. REC'D CALL BACK AND REC'D ORDER TO CALL DR CHEN. SPOKE TO DR CHEN AND REC'D ORDER TO CALL ORTHO. DR MAURER PAGED. AWAITING CALL BACK.
--- NOTE | 2018-12-07 12:36 | NUR ---
PAGED DR GRIFFITH PCTS FOR ORTHO.
--- NOTE | 2018-12-07 12:44 | NUR ---
SPOKE TO DR GRIFFITH, SPOKE JUAN A PERALTA.
--- NOTE | 2018-12-07 12:54 | MORECARE ---
CASE MANAGEMENT DISCHARGE SUMMARY PATIENT: CAROL VALVERDE UNIT: [id number] ADM DATE: 11/24/18 AGE: 68 : 48 SEX: M ROOM/BED: D.2305 AUTHOR: EDWAR STODDARD PHYSICIAN: REFERRING PHYSICIAN: ALBERTO SANTIAGO MD DATE OF SERVICE: 12/07/18 Discharge Plan Patient Name: CAROL VALVERDE Facility: [facility]:[place] : 1950 Planned Disposition: Nursing Facility TATE Cert Anticipated Discharge Date: Discharge Date: Expected LOS: Initial Reviewer: [email or web address] Initial Review Date: 11/28/2018 Generated: 12/07/18 1:54 pm Comments DCP- Discharge Planning Updated by [id number]: Em Nguyen on 12/07/18 11:[address] I have notified Ketty Avendaño and Kaye Bernstein that Johnny would like the ethics committee notified about this patient. I also called APS and spoke to Claudia and [place] [id number]. His cousin Michael Valverde had called case management phone and left a message to return his call. I called Michael's number ([phone]) and left my number on his answering machine to return my call. CM will continue to follow and assist with discharge planning/needs. DCP- Discharge Planning Updated by [id number]: Gricelda Coto on 11/28/18 3:[address] Patient Name: CAROL VALVERDE Admission Status: ER Accout number: [id number] Admission Date: 11-24-2018 : 1950 Admission Diagnosis:SEPSIS, UNSPECIFIED ORGANISM Attending: ALBERTO SANTIAGO Current LOS: 4 Anticipated DC Date: Planned Disposition: Nursing Facility TATE Cert Primary Insurance: [employer] Discharge Planning Comments: CM attempted to met with patient he was yelling out and refused to speak with me. CM found out that patient is a resident in mcc care at [facility]. He is a and receiving benefits. [place] expeditor has been notified and patient is on list. Michael Valverde (cousin) is patients next of kin [phone]. Plan at this time is for patient to return to the [facility] upon discharge. CM will continue to follow and assist as needed with discharge planning / needs. Sanding Machine Buffer: Gricelda Coto DCPIA - Discharge Planning Initial Assessment Updated by [email or web address]: Gricelda Coto on 11/28/18 4:01 pm * Is the patient Alert and Oriented? No * PCP PAMELA * Preadmission Environment [facility] * Facility Name [facility] [phone] * List name and contact numbers for known caregivers / representatives who currently or will assist patient after discharge: MICHAEL VALVERDE - [facility]- [phone] * Verbal permission to speak to the caregivers and representatives has been obtained from the patient. N/A * Additional services required to return to the preadmission environment? No * Can the patient safely return to the preadmission environment? Yes Last DP export: 12/06/18 12:58 p Patient Name: CAROL VALVERDE Page 38981 at 1254 All edits/amendments must be made on the electronic document DICTATION DATE: 12/07/18 1253 MEAT COUNTER CLERK: SIDDHARTHA 12/07/18 1253 RPT#: [id number] DC DATE: STATUS: ADM IN [facility] [address] [place] [address] END OF REPORT
--- NOTE | 2018-12-07 13:03 | NUR ---
PAGED DR BRAR. REC'D ORDERS FOR CT HEAD
--- NOTE | 2018-12-07 14:23 | NUR ---
DR BRAR IN ICU. PT TO CT FOR CT HEAD.
--- NOTE | 2018-12-07 14:48 | MORECARE ---
CASE MANAGEMENT DISCHARGE SUMMARY PATIENT: CAROL VALVERDE UNIT: [id number] ADM DATE: 11/24/18 AGE: 68 : 48 SEX: M ROOM/BED: D.2305 AUTHOR: EDWAR STODDARD PHYSICIAN: REFERRING PHYSICIAN: ALBERTO SANTIAGO MD DATE OF SERVICE: 12/07/18 Discharge Plan Patient Name: CAROL VALVERDE Facility: [facility]:[place] : 1950 Planned Disposition: Nursing Facility TATE Cert Anticipated Discharge Date: Discharge Date: Expected LOS: Initial Reviewer: [email or web address] Initial Review Date: 11/28/2018 Generated: 12/07/18 3:48 pm Comments DCP- Discharge Planning Updated by [id number]: Em Wendy on 12/07/18 1:[address] Michael Valverde (patient's cousin) returned my call. He states he will try and come in for a visit tomorrow. He states that he does not think it is his place to decide his code status, etc. I informed him that his cousin is back in ICU and that I have filed a report with APS since he is unable to make any of his medical decisions at this time. Michael states that if he is alert enough when he visits he will ask about a living will and POA paper work. CM will continue to follow and assist with discharge planning/needs. DCP- Discharge Planning Updated by [id number]: Em Muñozkonstantin on 12/07/18 11:[address] I have notified Ketty Avendaño and Kaye Bernstein that Johnny would like the ethics committee notified about this patient. I also called APS and spoke to Claudia and [place] [id number]. His cousin Michael Valverde had called case management phone and left a message to return his call. I called Michael's number ([phone]) and left my number on his answering machine to return my call. CM will continue to follow and assist with discharge planning/needs. DCP- Discharge Planning Updated by [id number]: Gricelda Coto on 11/28/18 3:[address] Patient Name: CAROL J LAVERN Admission Status: ER Accout number: [id number] Admission Date: 11-24-2018 : 1950 Admission Diagnosis:SEPSIS, UNSPECIFIED ORGANISM Attending: ALBERTO SANTIAGO Current LOS: 4 Anticipated DC Date: Planned Disposition: Nursing Facility [facility] Primary Insurance: [employer] Discharge Planning Comments: CM attempted to met with patient he was yelling out and refused to speak with me. 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 He is a and receiving benefits. [place] expeditor has been notified and patient is on list. Michael Valverde (cousin) is patients next of kin [phone]. Plan at this time is for patient to return to the [facility] upon discharge. CM will continue to follow and assist as needed with discharge planning / needs. Ballistician: Gricelda Coto DCPIA - Discharge Planning Initial Assessment Updated by [email or web address]: Gricelda Coto on 11/28/18 4:01 pm * Is the patient Alert and Oriented? No * PCP PAMELA * Preadmission Environment [facility] * Facility Name [facility] [phone] * List name and contact numbers for known caregivers / representatives who currently or will assist patient after discharge: MICHAEL VALVERDE - COUSIN- [phone] * Verbal permission to speak to the caregivers and representatives has been obtained from the patient. N/A * Additional services required to return to the preadmission environment? No * Can the patient safely return to the preadmission environment? Yes Last DP export: 12/07/18 11:54 a Patient Name: CAROL VALVERDE Page [phone] at 1448 All edits/amendments must be made on the electronic document DICTATION DATE: 12/07/18 1448 SENIOR INFORMATION SECURITY ARCHITECT: SIDDHARTHA 12/07/18 1448 RPT#: [id number] DC DATE: STATUS: ADM IN [facility] [address] [place] [address] END OF REPORT
--- NOTE | 2018-12-07 17:38 | NUR ---
PT LETHARGIC. PT PROMPTED TO AWAKEN. PT BECOMES AGGITATED AND STARTS TO YELL AND CURSE AT THIS RN. AGREES TO HAVE MEAL TRAY. PT FEEDS SELF WITH OUT PROBLEMS.
--- NOTE | 2018-12-07 19:30 | NUR ---
ASSESSMENT COMPLETE, PER NURSING FLOWSHEET, PATIENT REPOSITIONED, REFUSES ORAL CARE, C/L IN REACH, WILL CONTINUE TO MONTIOR.
--- NOTE | 2018-12-07 21:00 | NUR ---
PATIENT REPOSITIONED, DRINK PROVIDED, NO OTHER NEEDS VOICED OR NOTED AT THIS TIME
--- NOTE | 2018-12-07 23:00 | NUR ---
REASSESSMENT COMPLETE, PER NURSING FLOWSHEET, PATIENT RE-POSITIONED, VSS, CONTINUE POC
[2018-12-08] VITALS (22 sets, daily range): BP systolic 86–113; BP diastolic 50–93
--- NOTE | 2018-12-08 01:00 | NUR ---
PATIENT REPOSITIONED, BROWN CARE PROVIDED, C/L IN REACH, CONTINUE POC
--- NOTE | 2018-12-08 03:00 | NUR ---
REASSESSMENT COMPLETE, PER NURSING FLOWSHEET, PATIENT REPOSITIONED, ORAL CARE REFUSED, PATIENT IS VERBALLY DISRUPTIVE, VSS, WILL CONTINUE TO MONITOR
--- NOTE | 2018-12-08 05:00 | NUR ---
PATIENT REPOSITIONED, CONTINUES TO BE VERBALLY DISRUPTIVE AND AUGUMENTATIVE, WILL CONTINUE TO MONITOR
--- NOTE | 2018-12-08 06:00 | NUR ---
DRESSING CHANGE TO COCCYX, PER NURSING INSTRUCTIONS IN PROCESS INTERVENTIONS. SEE DOCUMENTATION IN PROCESS INTERVENTION FOR DETAILS. COMPLETE LINEN CHANGE
--- NOTE | 2018-12-08 06:35 | NUR ---
ATTEMPTED TO GIVE PT HIS MORNING UPDRAFT BUT PT WAS VERY UPSET AND REFUSED THE TREATMENT. NO COUGH AND CLEAR AND DIMINSHED
--- NOTE | 2018-12-08 07:00 | NUR ---
REC'D EYES CLOSED, VSS/ RESP EVEN & UNLABORED.
--- NOTE | 2018-12-08 08:15 | NUR ---
ASSESSED, RESISTS CARE, EASILY PRONE TO BOUTS OF VERBAL AGGRESSIVENESS AND CURSING.
--- NOTE | 2018-12-08 10:00 | NUR ---
DR BRAR ROUNDS- NO NEW ORDERS.
--- NOTE | 2018-12-08 12:15 | NUR ---
REASSESED W/O CHANGES POST RETURNS FROM CT. ASSISTED W/ MEAL. RE[POSITIONED. REFUSES ORAL CARE/ BATH.
--- NOTE | 2018-12-08 13:30 | NUR ---
DR BRAR OK'S TRANSFER TO FLOOR, SPOKE W/ DR SANTIAGO'S MOVEMENT ASSEMBLY FINAL INSPECTOR, ESPERANZA HICKSSHEARS, AND REC'D TRANSFER ORDERS.
--- NOTE | 2018-12-08 17:00 | NUR ---
ASSISTED W/ MEAL- ATE 75%. DECLINES BATH AGAIN.
--- NOTE | 2018-12-08 19:30 | NUR ---
SHIFT ASSESSMENT COMPLETE PER NURSING FLOWSHEET, PATIENT REPOSITIONED, VSS, NO OTHER NEEDS VOICED OR NOTED AT THIS TIME
--- NOTE | 2018-12-08 21:00 | NUR ---
PATIENT WATCHING TV, DECLINES TO BE REPOSITIONED AT THIS TIME, PATIENT STATES THAT "I'M COMFORTABLE JUST LIKE THIS FOR NOW". NO OTHER NEED VOICE OR NOTED
--- NOTE | 2018-12-08 23:00 | NUR ---
PATIENT REPOSITIONED, HEELS BRIDGED, VSS, WILL CONTINUE TO MONITOR
[2018-12-09] VITALS (8 sets, daily range): BP systolic 92–126; BP diastolic 46–93
--- NOTE | 2018-12-09 01:00 | NUR ---
PATIENT REPOSITIONED, BROWN CARE PROVIDED, CONTINUE POC
--- NOTE | 2018-12-09 03:00 | NUR ---
PATIENT REPOSITIONED FLUIDS PROVIDED, PER PATIENT REQUEST, WILL CONTINUE TO MONITOR
--- NOTE | 2018-12-09 05:00 | NUR ---
PATIENT REPOSITIONED, IMMEDIATELY BACK TO SLEEP, CONTINUE POC
--- NOTE | 2018-12-09 07:00 | NUR ---
REC'D EYES CLOSED RESP UNLABORED
--- NOTE | 2018-12-09 08:30 | NUR ---
ASSESS COMPLETE. VSS.
[2018-12-09 09:29] LABS: BASOPHILS 0.1 % (0-2); HEMATOCRIT 27.6 % (42.0-54.0); HEMOGLOBIN 8.8 g/dL (13.5-17.5); IMMATURE GRANULOCYTES 0.1 % (0-5); LYMPHOCYTES 16.4 % (15-50); MCH 25.2 pg (26.0-34.0); MCHC 31.9 g/dL (31.0-37.0); MCV 79.1 fL (80.0-100.0); MEAN PLATELET VOLUME 9.9 fL (7.4-10.4); MONOCYTES 10.7 % (2-11); NEUTROPHILS 71.7 % (40-80); PLATELET COUNT 358 10x3/uL (130-400); RBC 3.49 10x6/uL (4.20-6.10); RDW 20.6 % (11.5-14.5); WBC 7.1 10x3/uL (4.8-10.8)
[2018-12-09 09:45] LABS: CALC OSMOLALITY 271 mosm/kg (275-300); CALCIUM 7.6 mg/dL (8.5-10.1); CHLORIDE - SERUM 102 mmol/L (98-107); CREATININE - SERUM 0.6 mg/dL (0.6-1.3); GLUCOSE 177 mg/dL (74-106); SODIUM 134 mmol/L (136-145); UREA NITROGEN 13 mg/dL (7-18); eGFR NON AFRICAN AMERICAN > 90 mL/min (90-120)
[2018-12-09 09:47] LABS: POTASSIUM - SERUM 2.9 mmol/L (3.5-5.1)
--- NOTE | 2018-12-09 10:00 | NUR ---
COCCYX/ BUTTOCK/ LT HIP DRSG CHANGED.
--- NOTE | 2018-12-09 14:25 | NUR ---
TR TO ROOM 2240, REPOERT TO WANG BLOOD.
--- NOTE | 2018-12-09 15:00 | NUR ---
RECIEVED PATIENT FROM ICU. TRANSFERED VIA BED, IV TO RIGHT FOREARM, PATENT, AND SALINE LOCKED, ON ROOM AIR, ON CONTACT ISOLATION FOR MRSA IN WOUND. DENIES ANY CURRENT NEEDS OR DISCOMFORTS, BED LOWERED AND LOCKED, CALL LIGHT WITHIN REACH. CPOC
--- NOTE | 2018-12-09 16:48 | NUR ---
COLOSTOMY CHANGED, WAFER AND BAG COMPLETELY CHANGED, STOMA BEEFY RED, SPLIT DRAIN GAUZE APPLIED TO SUPRAPUBIC CATHETER INSERTION SITE, SECURELY ATTACHED TO RIGHT THIGH WITH STAT LOCK DEVICE, ON ROOM AIR, DRESSING TO COCCYX PRESENT AND ADHERED TO SKIN, DENIES ANY CURRENT NEEDS OR DISCOMFORT, BED LOWERED AND LOCKED, CALL LIGHT WITHIN REACH. CPOC
--- NOTE | 2018-12-09 19:25 | NUR ---
LYING IN BED. HOB ELEVATED. YELLING OUT FOR HELP. CONFUSED. ORIENTED TO SELF ONLY. INSTRUCTED TO USE CALL MAGAÑA FOR ASSISTANCE. STATES HE NEEDS TO GET UP BUT PT IS A PARAPLEGIC. BED ALARM ON FOR PT SAFETY. RESP EVEN AND NONLABORED. BBS CTA. SUPRAPUBIC CATH NOTED TO BROWN BAG DRAINING CLOUDY YELLOW URINE. COLOSTOMY NOTED TO LLQ WITH NO STOOL IN BAG. BRUISES NOTED TO BUE. LARGE SCAB COVERING LT KNEE NOTED IS OPEN TO AIR. DRSG NOTED TO RT CALF. DRSG NOTED TO LT FOOT. LT TOES ARE BLACKENED. NECROTIC AREA ALSO NOTED TO PLANTAR SURFACE OF RT FOOT APPROX SIZE OF A QUARTER. DRSG NOTED TO BUTTOCKS. 1ST STEP OVERLAY MATTRESS IN USE. NS @ KVO INFUSING IN RT AC. 2+ EDEMA NOTED TO BLE. SR ELEVATED X2. CL IN REACH. DENIES PAIN.
[2018-12-10 06:04] LABS: CALC OSMOLALITY 275 mosm/kg (275-300); CARBON DIOXIDE 25.4 mmol/L (21.0-32.0); CHLORIDE - SERUM 104 mmol/L (98-107); CREATININE - SERUM 0.7 mg/dL (0.6-1.3); GLUCOSE 139 mg/dL (74-106); POTASSIUM - SERUM 3.2 mmol/L (3.5-5.1); SODIUM 137 mmol/L (136-145); UREA NITROGEN 12 mg/dL (7-18); eGFR NON AFRICAN AMERICAN > 90 mL/min (90-120)
[2018-12-10 06:19] LABS: BASOPHILS 0.2 % (0-2); EOSINOPHILS 2.4 % (0-7); HEMATOCRIT 31.2 % (42.0-54.0); HEMOGLOBIN 9.9 g/dL (13.5-17.5); IMMATURE GRANULOCYTES 0.2 % (0-5); LYMPHOCYTES 23.5 % (15-50); MCH 24.9 pg (26.0-34.0); MCHC 31.7 g/dL (31.0-37.0); MCV 78.4 fL (80.0-100.0); MEAN PLATELET VOLUME 10.4 fL (7.4-10.4); MONOCYTES 9.8 % (2-11); NEUTROPHILS 63.9 % (40-80); RBC 3.98 10x6/uL (4.20-6.10); RDW 20.2 % (11.5-14.5); WBC 6.3 10x3/uL (4.8-10.8)
[2018-12-10 06:27] LABS: PLATELET COUNT 441 10x3/uL (130-400)
--- NOTE | 2018-12-10 07:31 | NUR ---
PT RESTING IN BED, EYES CLOSED. RESPIRATIONS EVEN AND UNLABORED. AROUSES TO VOICE. ON CONTACT ISOLATION. ON 1ST STEP OVERLAY MATTRESS. CONFUSED AT TIMES. ON FALL PRECAUTIONS, GARRETT ALARM ON IN BED. PT HAS COLOSTOMY. SUPRAPUBIC CATHETER, LEAKS AROUND SITE. REINFORCED WITH GAUZE. PT PARAPLEGIC. IV TO RIGHT AC, NS INFUSING @ KVO. SITE PATENT WITHOUT REDNESS OR SWELLING. PT ACHS. NECROTIC TOES ON LEFT FOOT AND PLANTAR SURFACE. BRUISES TO BILATERAL HANDS AND EDEMA TO BLE. POTASSIUM 3.2 THIS AM, COVERAGE GIVEN ON PREVIOUS SHIFT. DRESSING TO RIGHT CALF AND BUTTOCKS, DRESSING C/D/I. SCAB TO LEFT KNEE. PT DENIES ANYTHING FURTHER AT THIS TIME. CALL LIGHT IN REACH. WILL CONTINUE TO MONITOR. NO C/O PAIN. NO S/S OF ACUTE DISTRESS NOTED.
[2018-12-10 09:13] VITALS: BP 110/90
--- NOTE | 2018-12-10 09:24 | NUR ---
I have reviewed this patient and I concur with the Shift Assessment completed by the Licensed Practical Nurse today this shift.
[2018-12-10 13:56] VITALS: BP 100/52
--- NOTE | 2018-12-10 15:32 | NUR ---
NUTRITION F/U PT REMAINS IN ISOLATION. [facility]. ~50% INTAKE LUNCH TODAY. RD FOLLOWING
[2018-12-10 17:04] VITALS: BP 119/63
--- NOTE | 2018-12-10 19:30 | NUR ---
REC'D IN BED AWAKE AND ALERT TO SELF. RESP EVEN AND UNLABORED WITH NO DISTRESS NOTED. CAN EXPRESS NEEDS AND WANTS. NO C/O NOTED OR VOICED. ASSESSMENT COMPLETED. C/L IN REACH AT BEDSIDE.
[2018-12-10 20:00] VITALS: BP 137/79
[2018-12-11] VITALS: BP 104/67
[2018-12-11 04:00] VITALS: BP 102/61
--- NOTE | 2018-12-11 04:12 | NUR ---
I have reviewed this patient and I concur with the Shift Assessment completed by the Licensed Practical Nurse today this shift.
--- NOTE | 2018-12-11 07:35 | NUR ---
PT RESTING IN BED. EYES OPEN. NO C/O PAIN. NO S/S OF ACUTE DISTRESS NOTED. PT ON CONTACT ISOLATION FOR VRE, PSEUDOMONAS, AND PROTEUS. PT CONFUSED AT TIMES. BED ALARM ON AND WORKING. ON ELECTROLYTE PROTOCOL. WOUNDS TO RIGHT CALF AND KNEE, DRESSING C/D/I. STAGE 4 PRESSURE ULCER TO BUTTOCKS, DRESSING INTACT. IV TO RIGHT AC, NS INFUSING @ 10ML/HR. SITE PATENT WITHOUT REDNESS OR SWELLING. PT ACHS. PT HAS SUPRAPUBIC CATHETER. COLOSTOMY TO LEFT UPPER QUADRANT. PT DENIES ANYTHING FURTHER AT THIS TIME. CALL LIGHT IN REACH. WILL CONTINUE TO MONITOR.
[2018-12-11 08:51] VITALS: BP 119/68
[2018-12-11 13:21] VITALS: BP 95/59
--- NOTE | 2018-12-11 15:59 | NUR ---
I have reviewed this patient and I concur with the Shift Assessment completed by the Licensed Practical Nurse today this shift.
[2018-12-11 17:52] VITALS: BP 150/67
--- NOTE | 2018-12-11 18:44 | NUR ---
PT RESTING IN BED, EYES OPEN WATCHING TV. NO C/O PAIN. NO S/S OF ACUTE DISTRESS NOTED. CALL LIGHT IN REACH. PT DENIES ANYTHING FURTHER.
[2018-12-11 20:00] VITALS: BP 106/63
[2018-12-12 04:00] VITALS: BP 114/66
[2018-12-12 07:43] LABS: CALC OSMOLALITY 272 mosm/kg (275-300); CALCIUM 7.9 mg/dL (8.5-10.1); CARBON DIOXIDE 25.2 mmol/L (21.0-32.0); CHLORIDE - SERUM 102 mmol/L (98-107); CREATININE - SERUM 0.7 mg/dL (0.6-1.3); GLUCOSE 153 mg/dL (74-106); POTASSIUM - SERUM 3.4 mmol/L (3.5-5.1); SODIUM 135 mmol/L (136-145); UREA NITROGEN 13 mg/dL (7-18); eGFR NON AFRICAN AMERICAN > 90 mL/min (90-120)
[2018-12-12 08:04] LABS: BASOPHILS 0.2 % (0-2); EOSINOPHILS 4.1 % (0-7); HEMATOCRIT 30.9 % (42.0-54.0); HEMOGLOBIN 9.8 g/dL (13.5-17.5); IMMATURE GRANULOCYTES 0.2 % (0-5); LYMPHOCYTES 25.7 % (15-50); MCH 24.9 pg (26.0-34.0); MCHC 31.7 g/dL (31.0-37.0); MCV 78.6 fL (80.0-100.0); MONOCYTES 9.9 % (2-11); NEUTROPHILS 59.9 % (40-80); RBC 3.93 10x6/uL (4.20-6.10); RDW 19.9 % (11.5-14.5); WBC 5.4 10x3/uL (4.8-10.8)
[2018-12-12 08:07] LABS: PLATELET COUNT 350 10x3/uL (130-400)
[2018-12-12 09:14] VITALS: BP 119/69
--- NOTE | 2018-12-12 10:00 | MORECARE ---
CASE MANAGEMENT DISCHARGE SUMMARY PATIENT: CAROL VALVERDE UNIT: [id number] ADM DATE: 11/24/18 AGE: 68 : 48 SEX: M ROOM/BED: D.2240 AUTHOR: EDWAR STODDARD PHYSICIAN: REFERRING PHYSICIAN: ALBERTO SANTIAGO MD DATE OF SERVICE: 12/12/18 Discharge Plan Patient Name: CAROL VALVERDE Facility: [facility]:[place] : 1950 Planned Disposition: Nursing Facility TATE Cert Anticipated Discharge Date: Discharge Date: Expected LOS: Initial Reviewer: [email or web address] Initial Review Date: 11/28/2018 Generated: 12/12/18 10:59 am Comments DCP- Discharge Planning Updated by [email or web address]: Arianna Fraser on 12/12/18 8:[address] RIP WITH APS CALLED, SHE STATED THAT SHE WOULD COME BY AND SEE HIM THIS AFTERNOON, CLINICALS FAXED PER HER REQUEST DCP- Discharge Planning Updated by [email or web address]: Em Nguyen on 12/07/18 1:[address] Michael Valverde (patient's cousin) returned my call. He states he will try and come in for a visit tomorrow. He states that he does not think it is his place to decide his code status, etc. I informed him that his cousin is back in ICU and that I have filed a report with APS since he is unable to make any of his medical decisions at this time. Michael states that if he is alert enough when he visits he will ask about a living will and POA paper work. CM will continue to follow and assist with discharge planning/needs. DCP- Discharge Planning Updated by [email or web address]: Em Nguyen on 12/07/18 11:[address] I have notified Ketty Avendaño and Kaye Bernstein that Johnny would like the ethics committee notified about this patient. I also called APS and spoke to Claudia and [place] [id number]. His cousin Michael Valverde had called case management phone and left a message to return his call. I called Michael's number ([phone]) and left my number on his answering machine to return my call. CM will continue to follow and assist with discharge planning/needs. DCP- Discharge Planning Updated by [email or web address]: Gricelda Coto on 11/28/18 3:[address] Patient Name: CAROL VALVERDE Admission Status: ER Accout number: [id number] Admission Date: 11-24-2018 : 1950 Admission Diagnosis:SEPSIS, UNSPECIFIED ORGANISM Attending: ALBERTO SANTIAGO Current LOS: 4 Anticipated DC Date: Planned Disposition: Nursing Facility [facility] Primary Insurance: [employer] Discharge Planning Comments: CM attempted to met with patient he was yelling out and refused to speak with me. 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 He is a and receiving benefits. [place] expeditor has been notified and patient is on list. Michael Valverde (cousin) is patients next of kin [phone]. Plan at this time is for patient to [facility] discharge. CM will continue to follow and assist as needed with discharge planning / needs. Credit Report Checker: Gricelda Coto DCPIA - Discharge Planning Initial Assessment Updated by [email or web address]: Gricelda Coto on 11/28/18 4:01 pm * Is the patient Alert and Oriented? No * PCP PAMELA * Preadmission Environment [facility] * Facility Name [facility] [phone] * List name and contact numbers for known caregivers / representatives who currently or will assist patient after discharge: MICHAEL VALVERDE - COUSIN- [phone] * Verbal permission to speak to the caregivers and representatives has been obtained from the patient. N/A * Additional services required to return to the preadmission environment? No * Can the patient safely return to the preadmission environment? Yes External Providers External Provider: OTHER-OTHER Next Contact Date: Service Request Date: Service Type: Resolution: Reviewer: Comments: Last DP export: 12/07/18 1:48 p Patient Name: CAROL VALVERDE Page [phone] at 1000 All edits/amendments must be made on the electronic document DICTATION DATE: 12/12/18958 BULLARD MACHINE OPERATOR: SIDDHARTHA 12/12/18958 RPT#: [id number] DC DATE: STATUS: ADM IN [facility] [address] [facility] [place] [address] END OF REPORT
[2018-12-12 12:41] VITALS: BP 106/66
--- NOTE | 2018-12-12 16:52 | NUR ---
PT RESTING IN BED NO SIGNS OF DISTRESS. IV TO RIGHT AC PATENT NO REDNESS OR TENDERNESS. HAS BROWN CATHER PATENT NO KINKS. IS BEDFAST. DENIES ANY FUTHER NEED AT THIS TIME. BED LOW POSITION. CALL LIGHT IN REACH. NO FAMILY AT BEDSIDE.
--- NOTE | 2018-12-12 17:13 | NUR ---
I have reviewed this patient and I concur with the Shift Assessment completed by the Licensed Practical Nurse today this shift.
[2018-12-12 17:37] VITALS: BP 104/66
[2018-12-12 20:00] VITALS: BP 109/68
--- NOTE | 2018-12-13 00:46 | NUR ---
REC'D. CHGE OF SHIFT SITING UPRIGHT STILL EATING DINNER.BROWN PATENT AND DRAING LITE YELLOW COLORED URINE.DRSG. LEFT FOOT INTACTTOP OF TOES VISIBLE NECROSIS OBSERVE.DENIES PAIN OR ANY OTHER DISCOMFORT. WILL CONTINUE TO MONITOR FOR ANY CHGES. IN NEURVASCULAR STATUS AND FOLLOW CURRENT PLAN OF CARE.
[2018-12-13 04:00] VITALS: BP 106/76
--- NOTE | 2018-12-13 04:18 | NUR ---
I have reviewed this patient and I concur with the Shift Assessment completed by the Licensed Practical Nurse today this shift.
[2018-12-13 06:44] LABS: BASOPHILS 0.3 % (0-2); EOSINOPHILS 4.3 % (0-7); HEMOGLOBIN 10.7 g/dL (13.5-17.5); IMMATURE GRANULOCYTES 0.2 % (0-5); LYMPHOCYTES 24.6 % (15-50); MCH 24.9 pg (26.0-34.0); MCHC 31.5 g/dL (31.0-37.0); MCV 79.3 fL (80.0-100.0); MONOCYTES 11.1 % (2-11); NEUTROPHILS 59.5 % (40-80); PLATELET COUNT 331 10x3/uL (130-400); RBC 4.29 10x6/uL (4.20-6.10); RDW 19.7 % (11.5-14.5); WBC 6.5 10x3/uL (4.8-10.8)
[2018-12-13 07:04] LABS: CALC OSMOLALITY 268 mosm/kg (275-300); CALCIUM 8.1 mg/dL (8.5-10.1); CHLORIDE - SERUM 99 mmol/L (98-107); CREATININE - SERUM 0.7 mg/dL (0.6-1.3); GLUCOSE 151 mg/dL (74-106); POTASSIUM - SERUM 3.9 mmol/L (3.5-5.1); SODIUM 133 mmol/L (136-145); UREA NITROGEN 13 mg/dL (7-18); eGFR NON AFRICAN AMERICAN > 90 mL/min (90-120)
--- NOTE | 2018-12-13 07:35 | NUR ---
PT RESTING IN BED, EYES CLOSED. RESPIRATIONS EVEN AND UNLABORED. AROUSES TO VOICE. NO C/O PAIN. NO S/S OF ACUTE DISTRESS NOTED. PT CONFUSED AT TIMES. IV TO RIGHT AC, NS INFUSING @ 10ML/HR. SITE PATENT WITHOUT REDNESS OR SWELLING. PT ACHS. COLOSTOMY PRESENT TO LEFT UPPER QUADRANT. SUPRAPUBIC CATHETER PRESENT. PT A PARAPLEGIC. PRESSURE ULCERS TO BILATERAL BUTTOCKS, DRESSING C/D/I. EXCORATION TO RIGHT CALF, DRESSING C/D/I. LEFT KNEE WOUND, DRESSING C/D/I. LEFT FOOT PLANTAR AND TOES NECROTIC, DRESSING TO FOOT C/D/I. PT DENIES ANYTHING FURTHER AT THIS TIME. CALL LIGHT IN REACH. WILL CONTINUE TO MONITOR.
[2018-12-13 09:25] VITALS: BP 105/70
--- NOTE | 2018-12-13 12:43 | NUR ---
SORE TO LEFT UPPER THIGH, NOTIFIED DIANE [facility]ARE ABOUT NEW AREA. WILL ADDRESS AREA WHEN DIANE SEES PATIENT.
[2018-12-13 13:43] VITALS: BP 106/64
--- NOTE | 2018-12-13 15:39 | MORECARE ---
CASE MANAGEMENT DISCHARGE SUMMARY PATIENT: CAROL VALVERDE UNIT: [id number] ADM DATE: 11/24/18 AGE: 68 : 48 SEX: M ROOM/BED: D.2240 AUTHOR: ARLYNDOC PHYSICIAN: REFERRING PHYSICIAN: ALBERTO SANTIAGO MD DATE OF SERVICE: 12/13/18 Discharge Plan Patient Name: CAROL VALVERDE Facility: [facility]:[place] : 1950 Planned Disposition: Nursing Facility TATE Cert Anticipated Discharge Date: Discharge Date: Expected LOS: Initial Reviewer: [email or web address] Initial Review Date: 11/28/2018 Generated: 12/13/18 4:38 pm Comments DCP- Discharge Planning Updated by [email or web address]: Arianna Fraser on 12/13/18 2:[address] PATIENT WILL BE DISCHARGING BACK HOME TO THE [facility] VIA EMS TO THE [facility]. CM WILL CONTINUE TO FOLLOW AND ASSIST NEEDED DCP- Discharge Planning Updated by [email or web address]: Arianna Fraser on 12/12/18 8:[address] RIP WITH APS CALLED, SHE STATED THAT SHE WOULD COME BY AND SEE HIM THIS AFTERNOON, CLINICALS FAXED PER HER REQUEST DCP- Discharge Planning Updated by [email or web address]: Em Nguyen on 12/07/18 1:[address] Michael Valverde (patient's cousin) returned my call. He states he will try and come in for a visit tomorrow. He states that he does not think it is his place to decide his code status, etc. I informed him that his cousin is back in ICU and that I have filed a report with APS since he is unable to make any of his medical decisions at this time. Michael states that if he is alert enough when he visits he will ask about a living will and POA paper work. CM will continue to follow and assist with discharge planning/needs. DCP- Discharge Planning Updated by [email or web address]: Em Nguyen on 12/07/18 11:[address] I have notified Ketty Avendaño and Kaye Bernstein that Johnny would like the ethics committee notified about this patient. I also called APS and spoke to Claudia and [place] [id number]. His cousin Michael Valverde had called case management phone and left a message to return his call. I called Michael's number ([phone]) and left my number on his answering machine to return my call. CM will continue to follow and assist with discharge planning/needs. DCP- Discharge Planning Updated by [email or web address]: Gricelda Coto on 11/28/18 3:[address] Patient Name: CAROL VALVERDE Admission Status: ER Accout number: [id number] Admission Date: 11-24-2018 : 1950 Admission Diagnosis:SEPSIS, UNSPECIFIED ORGANISM Attending: ALBERTO SANTIAGO Current LOS: 4 Anticipated DC Date: Planned Disposition: Nursing Facility [facility] Primary Insurance: [employer] Discharge Planning Comments: CM attempted to met with patient he was yelling out and refused to speak with me. CM found out that patient is a resident in fdc care at [facility]. He is a and receiving benefits. [place] expeditor has been notified and patient is on list. Michael Valverde (cousin) is patients next of kin [phone]. Plan at this time is for patient to return to the [facility] upon discharge. CM will continue to follow and assist as needed with discharge planning / needs. Shell Sieve Operator: Gricelda Coto DCPIA - Discharge Planning Initial Assessment Updated by [email or web address]: Gricelda Coto on 11/28/18 4:01 pm * Is the patient Alert and Oriented? No * PCP PAMELA * Preadmission Environment [facility] * Facility Name [facility] [phone] * List name and contact numbers for known caregivers / representatives who currently or will assist patient after discharge: MICHAEL VALVERDE - COUSIN- [phone] * Verbal permission to speak to the caregivers and representatives has been obtained from the patient. N/A * Additional services required to return to the preadmission environment? No * Can the patient safely return to the preadmission environment? Yes External Providers External Provider: OTHER-OTHER Next Contact Date: Service Request Date: Service Type: Resolution: Reviewer: Comments: Last DP export: 12/12/18 8:59 a Patient Name: CAROL VALVERDE Page [phone] at 1539 All edits/amendments must be made on the electronic document DICTATION DATE: 12/13/181537 THERMO PROCESSOR: SIDDHARTHA 12/13/181537 RPT#: [id number] DC DATE: STATUS: ADM IN [facility] [address] [place] [address] END OF REPORT
--- NOTE | 2018-12-13 15:56 | NUR ---
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 Leg wounds are as follows: left thigh 1cm x 5cm x escar (chronic/nonhealing) left heel 5cm x 2cm x escar (unstageable pressure injury) left dorsal to plantar foot includes toes covered in necrotic escar (chronic/nonhealing ulcer) left lateral ankle 3cm x 2cm x escar (chronic/nonhealing ulcer) left lateral upper ankle 4cm x 2cm x escar (chronic/nonhealing ulcer) left knee 7cm x 6cm x scab (chronic/nonhealing ulcer) left medial ankle 5cm x 3cm x escar (chronic/nonhealing ulcer) right plantar foot 2cm x 2cm x escar (chronic/nonhealing ulcer) right calf 6cm x 3cm x escar (chronic/nonhealing ulcer) Current treatment is wet to dry dressings using saline. Recommend continuing with wet to dry dressings on sacral wounds and changing to painting with betadine all other wounds.
--- NOTE | 2018-12-13 18:42 | NUR ---
PT RESTING IN BED, WATCHING TV AWAITING RESEARCH ASSISTANT MEMBER FROM AMBULANCE TO TRANSFER TO THE [facility]. DISCONTINUED IV, CATHETER TIP INTACT. WENT OVER DISCHARGE INSTRUCTIONS WITH PT, PT PASSIVE AND UNABLE TO SIGN PAPERS. PT DENIES ANYTHING FURTHER AT THIS TIME. CALL LIGHT IN REACH. WILL CONTINUE TO MONITOR.
--- NOTE | 2018-12-13 18:45 | NUR ---
I have reviewed this patient and I concur with the Shift Assessment completed by the Licensed Practical Nurse today this shift.
[2018-12-14] MEDS ORDERED: SULFAMETHOXAZOL1 TA3 PO (23:26)
== END 2018-12-13 21:46 | DRG 871 ==
LOC: D.ER 18:26 → D.M2 22:45 → D.MS 22:45 → D.ICU 22:45 → D.MS 12-05 16:13 → D.ICU 12-07 09:01 → D.MS 12-09 14:45
PROVIDERS: Emergency Medicine; Family Medicine; Internal Medicine Nephrology; Internal Medicine Pulmonary Disease; Student in an Organized Health Care Education/Training Program; ADMIT Legal Medicine; ATTEND Legal Medicine
DX: A41.9 Sepsis, unspecified organism (principal); R65.21 Severe sepsis with septic shock; J96.01 Acute respiratory failure with hypoxia; R57.8 Other shock; J18.1 Lobar pneumonia, unspecified organism; G93.41 Metabolic encephalopathy; N17.0 Acute kidney failure with tubular necrosis; N39.0 Urinary tract infection, site not specified; E87.1 Hypo-osmolality and hyponatremia; G82.20 Paraplegia, unspecified; E46 Unspecified protein-calorie malnutrition; E87.5 Hyperkalemia; R41.82 Altered mental status, unspecified; D72.829 Elevated white blood cell count, unspecified; D50.9 Iron deficiency anemia, unspecified; L89.519 Pressure ulcer of right ankle, unspecified stage; L89.159 Pressure ulcer of sacral region, unspecified stage; E11.9 Type 2 diabetes mellitus without complications; B95.0 Streptococcus, group A, as the cause of diseases classified elsewhere

== ENCOUNTER 2018-12-14 20:57 | Emergency (ER) | payer OTHER ==
[2018-11-27 15:10] VITALS: BMI 28.9
[2018-12-14 22:48] LABS: ALBUMIN 1.5 g/dL (3.4-5.0); ALKALINE PHOSPHATASE 140 U/L (46-116); ALT (SGPT) 7 U/L (10-68); BILIRUBIN - TOTAL 0.27 mg/dL (0.2-1.3); CALC OSMOLALITY 269 mosm/kg (275-300); CARBON DIOXIDE 22.2 mmol/L (21.0-32.0); CHLORIDE - SERUM 101 mmol/L (98-107); CREATININE - SERUM 0.7 mg/dL (0.6-1.3); GLUCOSE 147 mg/dL (74-106); POTASSIUM - SERUM 4.3 mmol/L (3.5-5.1); SODIUM 133 mmol/L (136-145); UREA NITROGEN 16 mg/dL (7-18); eGFR NON AFRICAN AMERICAN > 90 mL/min (90-120)
[2018-12-14 23:01] LABS: APPEARANCE SL CLDY (CLEAR); BILIRUBIN NEGATIVE (NEGATIVE); COLOR YELLOW (YELLOW); GLUCOSE NEGATIVE (NEGATIVE); KETONE NEGATIVE (NEGATIVE); NITRITE NEGATIVE (NEGATIVE); PROTEIN 1+ mg/dL (NEGATIVE); UROBILINOGEN NORMAL (NORMAL)
[2018-12-14 23:02] LABS: BACTERIA MODERATE /hpf (NONE SEEN); RED CELLS - URINE 0-5 /hpf (0-5); YEAST >1+ WITH HYPHAE /hpf (NONE SEEN)
[2018-12-14 23:03] LABS: MUCUS <1+ /lpf (NONE SEEN)
[2018-12-14] MEDS ORDERED: SULFAMETHOXAZOL1 TA3 PO (23:26)
[2018-12-14 23:42] LABS: BASOPHILS 0.4 % (0-2); EOSINOPHILS 6.6 % (0-7); HEMATOCRIT 33.7 % (42.0-54.0); HEMOGLOBIN 10.5 g/dL (13.5-17.5); IMMATURE GRANULOCYTES 0.1 % (0-5); LYMPHOCYTES 26.9 % (15-50); MCHC 31.2 g/dL (31.0-37.0); MCV 80.2 fL (80.0-100.0); MONOCYTES 9.4 % (2-11); NEUTROPHILS 56.6 % (40-80); PLATELET COUNT 353 10x3/uL (130-400); RDW 19.4 % (11.5-14.5); WBC 8.1 10x3/uL (4.8-10.8)
[2018-12-15 00:21] VITALS: BP 124/72
== END 2018-12-15 00:21 ==
LOC: D.ER 20:57
PROVIDERS: Emergency Medicine
DX: T83.098A Other mechanical complication of other urinary catheter, initial encounter (principal); N39.0 Urinary tract infection, site not specified

== ENCOUNTER 2018-12-18 12:22 | Emergency (ER) | payer OTHER, MEDICARE ==
[~2018-12-18] VITALS: Ht 177.8 cm; Wt 90.9 kg
[~2018-12-18 12:22] MED LIST changes: +SULFAMETHOXAZOL1 TA3 PO
[2018-12-18 12:24] VITALS: Ht 177.8 cm; Wt 90.9 kg
[2018-12-18 14:05] LABS: BASOPHILS 0.2 % (0-2); EOSINOPHILS 5.6 % (0-7); HEMATOCRIT 30.4 % (42.0-54.0); HEMOGLOBIN 9.4 g/dL (13.5-17.5); IMMATURE GRANULOCYTES 0.3 % (0-5); LYMPHOCYTES 12.3 % (15-50); MCH 25.1 pg (26.0-34.0); MCHC 30.9 g/dL (31.0-37.0); MCV 81.1 fL (80.0-100.0); MEAN PLATELET VOLUME 9.1 fL (7.4-10.4); MONOCYTES 4.2 % (2-11); NEUTROPHILS 77.4 % (40-80); PLATELET COUNT 324 10x3/uL (130-400); RBC 3.75 10x6/uL (4.20-6.10); RDW 18.7 % (11.5-14.5); WBC 9.5 10x3/uL (4.8-10.8)
[2018-12-18 14:14] LABS: ALBUMIN 1.8 g/dL (3.4-5.0); ANION GAP 12.6 mmol/L (8-16); BILIRUBIN - TOTAL 0.2 mg/dL (0.2-1.3); CARBON DIOXIDE 27.1 mmol/L (21.0-32.0); CREATININE - SERUM 1.4 mg/dL (0.6-1.3); POTASSIUM - SERUM 4.7 mmol/L (3.5-5.1); PROTEIN - SERUM 6.7 g/dL (6.4-8.2)
[2018-12-18 16:28] LABS: APPEARANCE HAZY (CLEAR); BILIRUBIN NEGATIVE (NEGATIVE); COLOR YELLOW (YELLOW); GLUCOSE NEGATIVE (NEGATIVE); KETONE NEGATIVE (NEGATIVE); NITRITE NEGATIVE (NEGATIVE); PROTEIN NEGATIVE (NEGATIVE); SPECIFIC GRAVITY 1.025 (1.005-1.020); UROBILINOGEN NORMAL (NORMAL)
[2018-12-18 16:30] LABS: BACTERIA FEW /hpf (NONE SEEN); RED CELLS - URINE 0-5 /hpf (0-5); YEAST >1+ WITH HYPHAE /hpf (NONE SEEN)
[2018-12-18 18:21] VITALS: BP 110/68
== END 2018-12-18 18:41 ==
LOC: D.ER 12:22
PROVIDERS: Family Medicine
DX: L03.116 Cellulitis of left lower limb (principal); I48.91 Unspecified atrial fibrillation; F03.90 Unspecified dementia, unspecified severity, without behavioral disturbance, psychotic disturbance, mood disturbance, and anxiety

== ENCOUNTER 2018-12-23 12:33 | Emergency (ER) | payer OTHER, MEDICARE ==
[2018-12-23 12:34] VITALS: BMI 28.7
[2018-12-23 14:34] VITALS: BP 122/74
== END 2018-12-23 15:29 ==
LOC: D.ER 12:33
DX: T83.018A Breakdown (mechanical) of other urinary catheter, initial encounter (principal)

== ENCOUNTER 2018-12-28 05:56 | Emergency (ER) | payer OTHER, MEDICARE ==
[~2018-12-28] VITALS: Ht 177.8 cm; Wt 81.8 kg
[2018-12-28 06:04] VITALS: Ht 177.8 cm; Wt 81.8 kg
[2018-12-28 11:30] VITALS: BP 103/65
== END 2018-12-28 11:30 | disposition home or self-care (01) ==
LOC: D.ER 05:56
DX: T83.018A Breakdown (mechanical) of other urinary catheter, initial encounter (principal)

== ENCOUNTER 2019-01-06 08:10 | Emergency (ER) | payer OTHER, MEDICARE ==
[~2019-01-06] VITALS: Ht 177.8 cm; Wt 90.9 kg
[2019-01-06 08:11] VITALS: Ht 177.8 cm; Wt 90.9 kg
[2019-01-06 10:06] VITALS: BP 108/64
== END 2019-01-06 10:08 | disposition other institution (70) ==
LOC: D.ER 08:10
DX: T83.098A Other mechanical complication of other urinary catheter, initial encounter (principal)

== ENCOUNTER 2019-01-27 21:35 | Inpatient (IN) | payer MEDICARE ==
[~2019-01-27] VITALS: Ht 177.8 cm; Wt 102.7 kg
--- NOTE | 2019-01-27 21:50 | NUR ---
SUPRAPUBIC CATH PLACED PER DR. OLSEN
[2019-01-27 22:10] VITALS: BP 55/32
[2019-01-27 22:17] VITALS: BP 80/52
[2019-01-27 22:27] LABS: HEMATOCRIT 29.4 % (42.0-54.0); HEMOGLOBIN 8.9 g/dL (13.5-17.5); MCH 24.2 pg (26.0-34.0); MCHC 30.3 g/dL (31.0-37.0); MCV 79.9 fL (80.0-100.0); MEAN PLATELET VOLUME 8.8 fL (7.4-10.4); PLATELET COUNT 432 10x3/uL (130-400); RBC 3.68 10x6/uL (4.20-6.10); RDW 18.5 % (11.5-14.5)
[2019-01-27 22:30] LABS: APTT 37.7 SECONDS (22.8-39.4); INR 1.48 (0.85-1.17); PROTIME 17.3 SECONDS (11.6-15.0)
[2019-01-27 22:38] LABS: ALBUMIN 1.6 g/dL (3.4-5.0); ALKALINE PHOSPHATASE 135 U/L (46-116); ALT (SGPT) 12 U/L (10-68); BILIRUBIN - TOTAL 0.43 mg/dL (0.2-1.3); CALC OSMOLALITY 294 mosm/kg (275-300); CALCIUM 8.2 mg/dL (8.5-10.1); CARBON DIOXIDE 23.2 mmol/L (21.0-32.0); CHLORIDE - SERUM 103 mmol/L (98-107); CREATININE - SERUM 2.6 mg/dL (0.6-1.3); GLUCOSE 132 mg/dL (74-106); POTASSIUM - SERUM 4.9 mmol/L (3.5-5.1); PROTEIN - SERUM 7.5 g/dL (6.4-8.2); SODIUM 134 mmol/L (136-145); UREA NITROGEN 82 mg/dL (7-18); eGFR NON AFRICAN AMERICAN 26 mL/min (90-120)
[2019-01-27 22:47] LABS: BASOPHILS 1 % (0-2); EOSINOPHILS 3 % (0-7); LYMPHOCYTES 4 % (15-50); MONOCYTES 1 % (2-11); NEUTROPHILS 89 % (40-80); PLATELET ESTIMATE INCREASED
[2019-01-27 22:52] LABS: CKMB 2.4 U/L (0.0-3.6); CREATINE KINASE 23 UL (21-232); TROPONIN-I < 0.017 ng/mL (0.000-0.060)
[2019-01-27 22:54] VITALS: BP 90/58
--- NOTE | 2019-01-27 23:40 | NUR ---
RECEIVED PATIENT TO ROOM 2311 VIA ED BED ACCOMPANIED BY [facility] TRAFFIC SURVEY TECHNICIAN. TRANSFERED TO ICU BED. MONITORS CONNECTED TO PATIENT WITH ALARMS SET. VSS. PATIENT LETHARGIC. RESPONDS TO SOME QUESTIONS. DENIES PAIN. ADMISSION ASSESSMENT COMPLETED AT THIS TIME PER FLOW SHEET.
[2019-01-28] VITALS (18 sets, daily range): BP systolic 72–110; BP diastolic 52–89; Ht 177.8 cm; Wt 102.7 kg
--- NOTE | 2019-01-28 01:00 | NUR ---
RETURNED TO ROOM [address] MORE AWAKE AND ALERT. RECONNECTED TO MONITORS WITH ALARMS SET. VSS. NO ACUTE DISTRESS OBSERVED.
[2019-01-28 02:30] LABS: APPEARANCE CLOUDY (CLEAR); COLOR YELLOW (YELLOW); NITRITE NEGATIVE (NEGATIVE); SPECIFIC GRAVITY 1.015 (1.005-1.020)
[2019-01-28 02:31] LABS: AMORPHOUS SEDIMENT >1+ /lpf (NONE SEEN); BACTERIA MODERATE /hpf (NONE SEEN); BILIRUBIN NEGATIVE (NEGATIVE); EPITHELIAL CELLS RARE /hpf (0-5); GLUCOSE NEGATIVE (NEGATIVE); KETONE NEGATIVE (NEGATIVE); PROTEIN 1+ mg/dL (NEGATIVE); RED CELLS - URINE 0-5 /hpf (0-5); UROBILINOGEN NORMAL (NORMAL); WHITE CELLS - URINE >50 /hpf (0-5)
--- NOTE | 2019-01-28 03:00 | NUR ---
REASSESSMENT COMPLETED PER FLOW SHEET. PATIENT SLOW TO ROUSE TO VERBAL/TACILE STIMULI. VERBALLY RESPONDS TO SOME QUESTIONS. VSS
--- NOTE | 2019-01-28 05:00 | NUR ---
PATIENT BATHED. WOUND DRSGS CHANGED. REPOSITIONED. CONTINUES LETHARGIC/ SLOW TO ROUSE. VSS
--- NOTE | 2019-01-28 05:29 | NUR ---
PT HAS MULTIPLE WOUNDS TO BILATERAL LOWER EXTREMITIES LEGS/FEET/TOES. LEFT PLANTAR FOOT 4X2 CM LLL 7X4 CM RIGHT HEEL 6X3 CM RIGHT ANKLE 9X5 CM LEFT KNEE [id number] UNSTAGEABLE WITH SMALL AMOUNT OF FOUL ODOR FROM ALL LOWER EXT WOUNDS. EXTENSIVE WOUND TO BUTTOCK. EXTREMELY LARGE WOUND WITH PURULENT DARK BROWN HEAVY EXUDATE. DEEP AREAS OF TUNNELING AND UNDERMINING UNABLE TO MEASURE . BONE AND MUSCLE VISIBLE. UNABLE TO ESTABLISH ANATOMICAL LANDMARKS DUE TO VAST AREA OF WOUND.
--- NOTE | 2019-01-28 07:00 | NUR ---
RECEIVED BEDSDIE REPORT ON PATIENT AND ASSUMED CARE. PATIENT LETHARGIC, AROUSES TO VOICE, ORIENTED TO SELF. VSS. PATIENT HEAD TO TOE ASSESSMENT COMPLETED. TURNED AND REPOSITIONED AND PLACED IN GOWN. IV 22 GA NSL TO RIGHT WRIST, IV 20 GA TO RIGHT THUMB INFUSING NS AT 10 CC/HR. NO S/S OF INFILTRATION. DRESSING CDI.
--- NOTE | 2019-01-28 07:45 | NUR ---
DR. CHEN PAGED REGARDING CONSULT.
--- NOTE | 2019-01-28 09:13 | NUR ---
PATIENT RESTING QUIETLY, VSS. TURNED AND REPOSITIONED IN BED. IV INFUSING W/O DIFFICULTY NS AT 100 CC/HR TO 20 GA TO RIGHT HAND.
--- NOTE | 2019-01-28 10:40 | NUR ---
DR. SHEETS AT ROOM REFERENCE SURGICAL CONSULT. EXAMINES PATIENT.
--- NOTE | 2019-01-28 11:13 | NUR ---
PATIENT REASSESSMENT COMPLETED. VSS. TURNED AND REPOSITIONED IN BED.
--- NOTE | 2019-01-28 12:27 | NUR ---
AIR OVERLAY MATTRESS PLACED ON PATIENTS BED.
--- NOTE | 2019-01-28 12:38 | NUR ---
PATIENT TURNED AND REPOSITONED IN BED. VSS.
--- NOTE | 2019-01-28 15:05 | MORECARE ---
CASE MANAGEMENT DISCHARGE SUMMARY PATIENT: CAROL PUCKETT UNIT: [id number] ADM DATE: 01/27/19 AGE: 68 : 48 SEX: M ROOM/BED: D.2311 AUTHOR: EDWAR STODDARD PHYSICIAN: REFERRING PHYSICIAN: ALBEROT SANTIAGO MD DATE OF SERVICE: 01/28/19 Discharge Plan Patient Name: CAROL PUCKETT Facility: [facility]:[place] : 1950 Planned Disposition: Nursing Facility TATE Cert Anticipated Discharge Date: Discharge Date: Expected LOS: Initial Reviewer: [email or web address] Initial Review Date: 01/28/2019 Generated: 01/28/19 4:05 pm DCPIA - Discharge Planning Initial Assessment Updated by [email or web address]: Gricelda Coto on 01/28/19 3:03 pm * Is the patient Alert and Oriented? No * PCP Donell * Pharmacy [facility] * Preadmission Environment Longterm Snf * ADLs Total Dependent * List name and contact numbers for known caregivers / representatives who currently or will assist patient after discharge: [facility]- [phone] * Verbal permission to speak to the caregivers and representatives has been obtained from the patient. N/A * Community resources currently utilized None * Additional services required to return to the preadmission environment? No * Can the patient safely return to the preadmission environment? Yes * Has this patient been hospitalized within the prior 30 days at any hospital? No Patient Name: CAROL PUCKETT Page [phone] at 1505 All edits/amendments must be made on the electronic document DICTATION DATE: 01/28/19 1504 SOFTWARE DEVELOPMENT ENGINEER: SIDDHARTHA 01/28/19 1504 RPT#: [id number] DC DATE: STATUS: ADM IN [facility] [address] [place] [address] END OF REPORT
--- NOTE | 2019-01-28 15:07 | NUR ---
PATIENT REASSESSMENT COMPLETED. VSS. IV INFUSING NS AT 100 CC/HR TO RIGHT 20 GA IV, RIGHT THUMB WITH NO S/S OF INFILTRATION. PATIENT TURNED AND REPOSITIONED IN BED.
--- NOTE | 2019-01-28 15:17 | MORECARE ---
CASE MANAGEMENT DISCHARGE SUMMARY PATIENT: CAROL PUCKETT UNIT: [id number] ADM DATE: 01/27/19 AGE: 68 : 48 SEX: M ROOM/BED: D.2311 AUTHOR: ARLYNDOC PHYSICIAN: REFERRING PHYSICIAN: ALBERTO SANTIAGO MD DATE OF SERVICE: 01/28/19 Discharge Plan Patient Name: CAROL PUCKETT Facility: [facility]:[place] : 1950 Planned Disposition: Usp Facility Anticipated Discharge Date: Discharge Date: Expected LOS: Initial Reviewer: [email or web address] Initial Review Date: 01/28/2019 Generated: 01/28/19 4:17 pm DCP- Discharge Planning Updated by [email or web address]: Gricelda Coto on 01/28/19 2:[address] Patient Name: CAROL PUCKETT Admission Status: ER Accout number: [id number] Admission Date: 01-27-2019 : 1950 Admission Diagnosis: Attending: ALBERTO SANTIAGO Current LOS: 1 Anticipated DC Date: Planned Disposition: Nursing Facility [facility] Primary Insurance: MEDICARE PART A ONLY Discharge Planning Comments: CM attempted to meet with patient difficult to arouse and confused. Patient is a resident at [facility] [phone]. Patient unable to sign SAMANTA at this time. Patient plans at this time is return to the [facility] upon discharge. CM spoke with [facility] and they plan on him returning their facility upon discharge. The patient was in a Medicare bed prior to transferring to [facility]. CM will continue to follow and assist as needed with discharge planning /needs. Motorcycle Repairer: Gricelda Coto DCPIA - Discharge Planning Initial Assessment Updated by [email or web address]: Gricelda Coto on 01/28/19 3:03 pm * Is the patient Alert and Oriented? No * PCP Donell * Pharmacy [facility] * Preadmission Environment [facility] * ADLs Total Dependent * List name and contact numbers for known caregivers / representatives who currently or will assist patient after discharge: [facility]- [phone] * Verbal permission to speak to the caregivers and representatives has been obtained from the patient. N/A * Community resources currently utilized None * Additional services required to return to the preadmission environment? No * Can the patient safely return to the preadmission environment? Yes * Has this patient been hospitalized within the prior 30 days at any hospital? No Last DP export: 01/28/19 2:05 p Patient Name: CAROL PUCKETT Page [phone] at 1517 All edits/amendments must be made on the electronic document DICTATION DATE: 01/28/191515 FILTERS ASSEMBLER: SIDDHARTHA 01/28/191515 RPT#: [id number] DC DATE: STATUS: ADM IN [facility] [address] [place] [address] END OF REPORT
[2019-01-29] VITALS (23 sets, daily range): BP systolic 77–128; BP diastolic 36–103
--- NOTE | 2019-01-29 01:00 | NUR ---
RESTING WITH EYES CLOSED, ROUSES EASILY AND ALERT. VSS
--- NOTE | 2019-01-29 03:00 | NUR ---
REASSESSMENT COMPLETED PER FLOW SHEET WITH NO CHANGES OR ACUTE DISTRESS OBSERVED. VSS.
[2019-01-29 04:20] LABS: ANION GAP 18.6 mmol/L (8-16); CALCIUM 7.8 mg/dL (8.5-10.1); CARBON DIOXIDE 17.8 mmol/L (21.0-32.0); POTASSIUM - SERUM 4.4 mmol/L (3.5-5.1)
[2019-01-29 04:23] LABS: BASOPHILS 0.1 % (0-2); EOSINOPHILS 0.8 % (0-7); HEMATOCRIT 25.8 % (42.0-54.0); HEMOGLOBIN 7.7 g/dL (13.5-17.5); IMMATURE GRANULOCYTES 0.4 % (0-5); LYMPHOCYTES 5.4 % (15-50); MCH 24.3 pg (26.0-34.0); MCHC 29.8 g/dL (31.0-37.0); MCV 81.4 fL (80.0-100.0); MONOCYTES 3.6 % (2-11); NEUTROPHILS 89.7 % (40-80); PLATELET COUNT 410 10x3/uL (130-400); RBC 3.17 10x6/uL (4.20-6.10); RDW 18.4 % (11.5-14.5); WBC 19.2 10x3/uL (4.8-10.8)
--- NOTE | 2019-01-29 05:00 | NUR ---
RESTING WITH EYES CLOSED, EASILY ROUSED AND ALERT. VSS
--- NOTE | 2019-01-29 09:41 | NUR ---
Pt has a chronic stage 4 pressure injury covering sacrum, coccyx, bilateral buttocks and scrotum with exposed bone. The wound bed is pale pink and has spots of brown necrotic tissue. He has numerous leg wounds as noted: left thigh 1cm x 5cm x escar / chronic nonhealing ulcer left heel 5cm x 2cm x escar unstageable pressure injury left dorsal foot around to plantar including toes covered with dry necrotic tissue / chronic nonhealing ulcer. left lateral ankle - escar / chronic nonhealing ulcer left lateral upper ankle / chronic nonhealing ulcer left knee / chronic nonhealing ulcer left medial ankle / chronic nonhealing ulcer right calf / chronic nonhealing ulcer Treatment is betadine to all wounds on legs/feet/toes Wet to dry dressings with saline to wound on bottom. Turning/repositioning q 2 hours Bridging heels Protecting bony prominences Air overlay mattress. Wound care continues to follow.
--- NOTE | 2019-01-29 19:00 | NUR ---
SHIFT ASSESSMENT COMPLETE. PT IS CONFUSED TO TIME AND SITUATION. REORIENTED. S1S2 AUDIBLE. CLEAR LUNG SOUNDS HEARD BILAT THROUGHOUT ALL LOBES. COLOSTOMY BAG NOTED. BROWN CATH INTACT DRAINING CLEAR YELLOW URINE. R HAND PIV S/L. R WRIST PIV INFUSING NS @ 100 ML/HR. SEE SKIN ASSESSMENT FLOWSHEET FOR WOUND DETAILS, DRESSINGS CDI. REPOSITIONED FOR COMFORT. PT IS EATING DINNER. HE DENIES ANY FURTHER NEEDS AT THIS TIME. WILL CONT WITH POC.
--- NOTE | 2019-01-29 21:00 | NUR ---
PT SCREAMING AND CUSSING OUT NURSING STAFF D/T IV AND O2 CORD. TRIED TO REORIENT. PT CONTINUES TO YELL OUT AND REFUSES TO TAKE PO MEDS. SEE EMAR FOR DETIALS. WILL CONT CLOSE MONITORING IN ICU.
--- NOTE | 2019-01-29 23:05 | NUR ---
REASSESSMENT COMPLETE PER FLOWSHEET. PT REMAINS CALM AT THIS TIME. HE DENIES ANY NEEDS. VSS. CALL LIGHT IN REACH, BED IN LOWEST POSITION. WILL CONT WITH POC.
[2019-01-30] VITALS (21 sets, daily range): BP systolic 91–125; BP diastolic 50–89
--- NOTE | 2019-01-30 01:00 | NUR ---
PT RESTING WITH NO SIGNS OF ACUTE DISTRESS NOTED. CALL LIGHT IN REACH, BED IN LOWEST POSITION. WILL CONT WITH POC.
--- NOTE | 2019-01-30 03:00 | NUR ---
REASSESMENT COMPLETE. VSS. SEE FLOWSHEET FOR FURTHER DETIALS. REPOSITIONED FOR COMFORT. CALL LIGHT IN REACH, BED IN LOWEST POSITION. WILL CONT WITH POC.
--- NOTE | 2019-01-30 05:00 | NUR ---
PT RESTING WITH NO SIGNS OF ACUTE DISTRESS NOTED. VSS. WILL CONT WITH POC.
--- NOTE | 2019-01-30 07:00 | NUR ---
REC'D REPORT AND RESUMED CARE, AWAKE AND ALERT, O2 VIA HF NC, VSS, DENIES PAIN, ASSESSMENT COMPLETE PER FLOWSHEET, CALL LIGHT IN REACH, REPOSITIONED TO LEFT SIDE, NO OTHER NEEDS AT THS TIME
--- NOTE | 2019-01-30 07:45 | NUR ---
BREAKFAST TRAY TO BEDSIDE, ASSIST WITH SET UP, INDEPENDENT WITH EATING
--- NOTE | 2019-01-30 09:00 | NUR ---
MORNING MEDS GIVEN PER OCT FLOWSHEET
[2019-01-30 09:51] LABS: ANION GAP 17.8 mmol/L (8-16); CALCIUM 7.8 mg/dL (8.5-10.1); CARBON DIOXIDE 18.4 mmol/L (21.0-32.0); CREATININE - SERUM 1.5 mg/dL (0.6-1.3); POTASSIUM - SERUM 4.2 mmol/L (3.5-5.1)
--- NOTE | 2019-01-30 09:52 | NUR ---
NUTRITION F/U NURSING REPORTS PT WITH IMPROVED PO INTAKE, MORE ALERT. WILL CONTINUE TO PROVIDE DIET, HONOR FOOD PREFERENCES. RD FOLLOWING
--- NOTE | 2019-01-30 11:00 | NUR ---
ASSESSMENT COMPLETE, SEE FLOWSHEET, VSS, DENIES PAIN, REPOSITIONED UP AND TO BACK, CALL LIGHT IN REACH, NO NEEDS AT THIS TIME
[2019-01-30 12:05] LABS: BASOPHILS 0.1 % (0-2); EOSINOPHILS 0.6 % (0-7); HEMOGLOBIN 9.1 g/dL (13.5-17.5); IMMATURE GRANULOCYTES 0.3 % (0-5); LYMPHOCYTES 4.6 % (15-50); MCH 24.5 pg (26.0-34.0); MCHC 29.1 g/dL (31.0-37.0); MEAN PLATELET VOLUME 9.6 fL (7.4-10.4); MONOCYTES 2.5 % (2-11); NEUTROPHILS 91.9 % (40-80); RBC 3.71 10x6/uL (4.20-6.10); RDW 19.3 % (11.5-14.5); WBC 15.8 10x3/uL (4.8-10.8)
[2019-01-30 12:11] LABS: HEMATOCRIT 31.3 % (42.0-54.0); MCV 84.4 fL (80.0-100.0)
[2019-01-30 12:53] LABS: PLATELET COUNT 364 10x3/uL (130-400)
[2019-01-30 12:56] LABS: PLATELET ESTIMATE NORMAL
--- NOTE | 2019-01-30 15:00 | NUR ---
NO ACUTE CHANGE FROM PREVIOUS ASSESSMENT COMPLETED, WATCHING TVWITH NO SIGN OF DISTRESS
--- NOTE | 2019-01-30 17:15 | NUR ---
DINNER TRAY TO BEDSIDE, REFUSED, STATES HE IS NOT HUNGRY
--- NOTE | 2019-01-30 18:00 | NUR ---
TO RADIOLOGY FOR CT WITH PERSONNEL X2
--- NOTE | 2019-01-30 18:15 | NUR ---
BACK FROM RADIOLOGY, RECONNECT TO MONITORS, VSS, REPOSITIONED UP AND TO RIGHT SIDE, CALL LIGHT IN REACH NO OTHER NEEDS AT THIS TIME
--- NOTE | 2019-01-30 19:05 | NUR ---
SHIFT ASSESSMENT COMPLETE. PT IS CONFUSED TO TIME AND SITUATION. REORIENTED. PERRLA, 2 MM, BRISK REACTION TO LIGHT. MUCOUS MEMBRANES MOIST, ENDENTULOUS. S1S2 AUDIBLE, NSR SHOWING ON MONITOR, RATE 60-65 BPM. RR EVEN AND UNLABORED, CLEAR LUNG SOUNDS HEARD BILAT THROUGHOUT ALL LOBES, 4 L VIA NC. ABD ROUND, SOFT OT TOUCH, NONTENDER. COLOSTOMY NOTED LLQ, STOMA IS PINK AND MOIST. SUPRA-PUBIC CATH NOTED, CLEAR YELLOW URINE IN COLLECTION BAG. SEE SKIN ASSESSMENT FLOWSHEET FOR WOUND INFORMATION, DRESSINGS CDI AT THIS TIME. REFRESHMENTS BROUGHT TO BEDSIDE. R HAND PIV S/L. R WRIST PIV INFUSING NS @ 100 ML/HR. HE DENIES ANY FURTHER NEEDS AT THIS TIME. CALL LIGHT IN REACH, BED IN LOWEST POSITION. WILL CONT WITH POC.
--- NOTE | 2019-01-30 21:00 | NUR ---
REFRESHMENTS BROUGHT TO BEDSIDE. VSS. PO MEDS TAKEN WITHOUT DIFFICULTY. NO FAMILY/VISITORS AT VISITATION. CALL LIGHT IN REACH, BED IN LOWEST POSITION. WILL CONT WITH POC.
--- NOTE | 2019-01-30 23:00 | NUR ---
REASSESSMENT COMPLETE. VSS. NO CHANGES IN PT CONDITION. SEE FLOWSHEET FOR FURTHER DETIALS. CALL LIGHT IN REACH, BED IN LOWEST POSITION. WILL CONT WITH POC.
[2019-01-31] VITALS (11 sets, daily range): BP systolic 86–135; BP diastolic 53–94
--- NOTE | 2019-01-31 01:00 | NUR ---
PT RESTING WITH NO SIGNS OF ACUTE DISTRESS NOTED. VSS. WILL CONT WITH POC.
--- NOTE | 2019-01-31 03:00 | NUR ---
CHG BATH AND COMPLETE LINEN CHANGE PROVIDED. CHANGED ALL WOUND DRESSINGS PER ORDER. PT TOLERATED WELL. REASSESSMENT COMPLETE. NO FURTHER FINDINGS AT THIS TIME. WILL CONT WITH POC.
--- NOTE | 2019-01-31 03:15 | NUR ---
CHANGED PT'S COLOSTOMY BAG, STOMA PINK AND MOIST. NO FURTHER NEEDS.
[2019-01-31 04:19] LABS: BASOPHILS 0.1 % (0-2); EOSINOPHILS 1.8 % (0-7); HEMATOCRIT 25.4 % (42.0-54.0); HEMOGLOBIN 7.9 g/dL (13.5-17.5); IMMATURE GRANULOCYTES 0.4 % (0-5); LYMPHOCYTES 6.5 % (15-50); MCH 24.6 pg (26.0-34.0); MCHC 31.1 g/dL (31.0-37.0); MEAN PLATELET VOLUME 8.8 fL (7.4-10.4); MONOCYTES 4.3 % (2-11); NEUTROPHILS 86.9 % (40-80); PLATELET COUNT 381 10x3/uL (130-400); RBC 3.21 10x6/uL (4.20-6.10); RDW 18.3 % (11.5-14.5)
[2019-01-31 04:38] LABS: ANION GAP 15.4 mmol/L (8-16); CALCIUM 7.2 mg/dL (8.5-10.1); CARBON DIOXIDE 19.1 mmol/L (21.0-32.0)
[2019-01-31 04:40] LABS: MCV 79.1 fL (80.0-100.0)
[2019-01-31 04:43] LABS: CREATININE - SERUM 1.1 mg/dL (0.6-1.3); POTASSIUM - SERUM 3.5 mmol/L (3.5-5.1)
--- NOTE | 2019-01-31 05:00 | NUR ---
PT PULLED OUT PIV. ATTEMPTING TO START NEW PIV NOW.
--- NOTE | 2019-01-31 07:15 | NUR ---
REPORT RECEIVED. PT RESTING IN BED. VSS. HEAD TO TOE ASSESSMENT DONE. DRESSINGS TO LLE AND BUTTOCK NOTED. PT CONFUSED. SUPRAPUBIC CATHETER. COLOSTOMY BAG. WILL CONTINUE TO MONITOR.
--- NOTE | 2019-01-31 08:17 | NUR ---
NEW IV SITED TO RIGHT AC. 20 GAUGE. FLUIDS HOOKED BACK UP.
--- NOTE | 2019-01-31 10:46 | NUR ---
DRESSINGS TO LEFT LEG, FOOT, AND KNEE CHANGED AFTER DR GRIFFITH TOOK OFF TO EXAMINE. NO NEW ORDERS AT THIS TIME. POSSIBLE AKA.
--- NOTE | 2019-01-31 12:37 | NUR ---
VASCULAR ACCESS NURSE UNABLE TO GET IV SITE. WILL CALL DR SANTIAGO'S FISH FILLETER TO SEE IF WE CAN GET ANTIBIOTICS IM.
--- NOTE | 2019-01-31 15:23 | NUR ---
RIGHT SUBCLAVIAN TRIPLE LUMEN PLACE BY DR KUMAR. FLUSHES. DICKSON PARRY. WILL MONITOR.
--- NOTE | 2019-01-31 16:03 | NUR ---
REPORT CALLED TO KIKO ON MED SURG. PT TO GO TO ROOM 2238.
--- NOTE | 2019-01-31 21:00 | NUR ---
AWAKE,ALERT.NO COMPLAINTS VOICED. RESP EVEN AND UNALBORED. OR @2L PER NC ON. NO DISTRESS NOTED. IV INFUSING TO RIGHT CHEST WITHOUT REDNESS OR EDEMA NOTED. DRESSING TO RIGHT AND LEFT LEGS INTACT. SP CATH PATENT AND DRAINING CLEAR YELLOW URINE, COLOSTOMY WITH APPLIANCE INTACT. CL IN REACH
[2019-02-01 01:39] VITALS: BP 131/73
--- NOTE | 2019-02-01 04:00 | NUR ---
I have reviewed this patient and I concur with the Shift Assessment completed by the Licensed Practical Nurse today this shift.
[2019-02-01 04:58] VITALS: BP 130/68
--- NOTE | 2019-02-01 05:01 | NUR ---
PATIENT HAS PULLED OUT SUPRA PUBIC CATH WITH BULB INTACT. CALL PLACED TO ISAAK VELAZCO WITH ORDERS RECEIVEDT TO CONSULT UROLOGY. DR RUIZ NOTIFIED OF CONSULT WITH ORDERS RECEIEVE TO PLACE BROWN IN OPENING TO PREVENT HOLE FROM CLOSING UP. 16 FR PLACED PER ORDERS. TOLERATED WELL.
[2019-02-01 06:15] LABS: BASOPHILS 0.1 % (0-2); EOSINOPHILS 1.2 % (0-7); HEMATOCRIT 27.6 % (42.0-54.0); HEMOGLOBIN 8.5 g/dL (13.5-17.5); IMMATURE GRANULOCYTES 0.3 % (0-5); LYMPHOCYTES 7.4 % (15-50); MCH 23.9 pg (26.0-34.0); MCHC 30.8 g/dL (31.0-37.0); MCV 77.5 fL (80.0-100.0); MEAN PLATELET VOLUME 8.7 fL (7.4-10.4); MONOCYTES 5.2 % (2-11); NEUTROPHILS 85.8 % (40-80); PLATELET COUNT 354 10x3/uL (130-400); RBC 3.56 10x6/uL (4.20-6.10); RDW 18.1 % (11.5-14.5); WBC 13.2 10x3/uL (4.8-10.8)
[2019-02-01 06:41] LABS: CALC OSMOLALITY 292 mosm/kg (275-300); CALCIUM 7.5 mg/dL (8.5-10.1); CHLORIDE - SERUM 110 mmol/L (98-107); GLUCOSE 151 mg/dL (74-106); POTASSIUM - SERUM 3.5 mmol/L (3.5-5.1); SODIUM 141 mmol/L (136-145); UREA NITROGEN 37 mg/dL (7-18); eGFR NON AFRICAN AMERICAN 78 mL/min (90-120)
--- NOTE | 2019-02-01 08:37 | NUR ---
AWAKE, SLIGHTLY LETHARGIC, ON 2LPM VIA NC, SUPRAPUBIC CATHETER PRESENT, COLOSTOMY BAG, RIGHT SUBCLAVIN NS AT 100ML/HR. ON CONTACT ISOLATION. DENIES ANY CURRENT NEEDS OR DISCOMFORTS, BED LOWERED AND LOCKED, CALL LIGHT WITHIN REACH. CPOC
[2019-02-01 08:45] VITALS: BP 137/50
[2019-02-01 14:37] VITALS: BP 113/68
[2019-02-01 18:03] VITALS: BP 131/75
--- NOTE | 2019-02-01 19:15 | NUR ---
RECEIVED CARE FROM DAY NURSE. LYING IN BED WITH EYES CLOSED. RESP EVEN AND UNALBORED. CALL LIGHT AT SIDE. IV INFUSING PER ORDER TO RIGHT TLSC. SUPRA PUBIC CATH TO GRAVITY.
[2019-02-01 21:22] VITALS: BP 126/68
[2019-02-02 01:22] VITALS: BP 111/58
[2019-02-02 05:14] VITALS: BP 113/50
--- NOTE | 2019-02-02 06:41 | NUR ---
I have reviewed this patient and I concur with the Shift Assessment completed by the Licensed Practical Nurse today this shift.
[2019-02-02 08:47] VITALS: BP 122/68
[2019-02-02 11:20] LABS: BASOPHILS 0.1 % (0-2); EOSINOPHILS 3.1 % (0-7); HEMATOCRIT 26.5 % (42.0-54.0); IMMATURE GRANULOCYTES 0.3 % (0-5); LYMPHOCYTES 7.1 % (15-50); MCHC 30.2 g/dL (31.0-37.0); MEAN PLATELET VOLUME 8.5 fL (7.4-10.4); MONOCYTES 5.6 % (2-11); NEUTROPHILS 83.8 % (40-80); RBC 3.33 10x6/uL (4.20-6.10); RDW 18.6 % (11.5-14.5); WBC 10.2 10x3/uL (4.8-10.8)
[2019-02-02 11:21] LABS: MCV 79.6 fL (80.0-100.0); PLATELET COUNT 271 10x3/uL (130-400)
[2019-02-02 11:28] LABS: CALC OSMOLALITY 286 mosm/kg (275-300); CALCIUM 7.2 mg/dL (8.5-10.1); CARBON DIOXIDE 21.7 mmol/L (21.0-32.0); CHLORIDE - SERUM 111 mmol/L (98-107); CREATININE - SERUM 0.8 mg/dL (0.6-1.3); GLUCOSE 106 mg/dL (74-106); POTASSIUM - SERUM 3.2 mmol/L (3.5-5.1); SODIUM 142 mmol/L (136-145); UREA NITROGEN 24 mg/dL (7-18); eGFR NON AFRICAN AMERICAN > 90 mL/min (90-120)
--- NOTE | 2019-02-02 11:29 | MORECARE ---
CASE MANAGEMENT DISCHARGE SUMMARY PATIENT: CAROL PUCKETT UNIT: [id number] ADM DATE: 01/27/19 AGE: 68 : 48 SEX: M ROOM/BED: D.2238 AUTHOR: EDWAR STODDARD PHYSICIAN: REFERRING PHYSICIAN: ALBERTO SANTIAGO MD DATE OF SERVICE: 02/02/19 Discharge Plan Patient Name: CAROL PUCKETT Facility: [facility]:[place] : 1950 Planned Disposition: Usp Facility Anticipated Discharge Date: Discharge Date: Expected LOS: Initial Reviewer: [email or web address] Initial Review Date: 01/28/2019 Generated: 02/02/19 12:29 pm Comments DCP- Discharge Planning Updated by [id number]: Rajni Tate on 02/02/19 10:[address] Patient Name: CAROL PUCKETT Admission Status: ER Accout number: [id number] Admission Date: 01-27-2019 : 1950 Admission Diagnosis:SEPSIS, UNSPECIFIED ORGANISM Attending: ALBERTO SANTIAGO Current LOS: 6 Anticipated DC Date: Planned Disposition: Usp Facility Primary Insurance: MEDICARE PART A ONLY Discharge Planning Comments: CM EMAILED MAURIZIO HEATH AND BEN REGARDING THE CM CONSULT FOR ETHICS COMMITTEE INVOLVMENT FOR CONSENT FOR POSSIBLE AKA. CM WILL FOLLOW AND ASSIST NEEDED. Steam Plant Control Room Operator: Rajni Tate DCP- Discharge Planning Updated by [id number]: Gricelda Coto on 01/28/19 2:[address] Patient Name: CAROL PUCKETT Admission Status: ER Accout number: [id number] Admission Date: 01-27-2019 : 1950 Admission Diagnosis: Attending: ALBERTO SANTIAGO Current LOS: 1 Anticipated DC Date: Planned Disposition: Nursing Facility [facility] Primary Insurance: MEDICARE PART A ONLY Discharge Planning Comments: CM attempted to meet with patient difficult to arouse and confused. Patient is a resident at [facility] [phone]. Patient unable to sign SAMANTA at this time. Patient plans at this time is return to the [facility] upon discharge. CM spoke with [facility] and they plan on him returning their facility upon discharge. The patient was in a Medicare bed prior to transferring to [facility]. CM will continue to follow and assist as needed with discharge planning /needs. Steam Plant Control Room Operator: Gricelda Coto DCPIA - Discharge Planning Initial Assessment Updated by [id number]: Gricelda Coto on 01/28/19 3:03 pm * Is the patient Alert and Oriented? No * PCP Donell * Pharmacy [facility] * Preadmission Environment [facility] * ADLs Total Dependent * List name and contact numbers for known caregivers / representatives who currently or will assist patient after discharge: [facility]- [phone] * Verbal permission to speak to the caregivers and representatives has been obtained from the patient. N/A * Community resources currently utilized None * Additional services required to return to the preadmission environment? No * Can the patient safely return to the preadmission environment? Yes * Has this patient been hospitalized within the prior 30 days at any hospital? No Last DP export: 01/28/19 2:17 p Patient Name: CAROL PUCKETT Page 35783 at 1129 All edits/amendments must be made on the electronic document DICTATION DATE: 02/02/191127 TELEVISION PRESENTER: SIDDHARTHA 02/02/191127 RPT#: [id number] NH DATE: STATUS: ADM IN [facility] [address] [place] [address] END OF REPORT
[2019-02-02 12:41] VITALS: BP 130/65
[2019-02-02 18:07] VITALS: BP 118/69
[2019-02-02 20:00] VITALS: BP 111/60
[2019-02-03] VITALS: BP 119/63
[2019-02-03 04:00] VITALS: BP 84/55
--- NOTE | 2019-02-03 08:41 | NUR ---
EASILY AROUSED BY VOICE, ON 2LPM VIA NC, BED BOUND, RIGHT SUB CLAV INFUSING NS 100 ML/HR, BROWN CATHETER PRESENT, MELI COLORED URINE IN DRAINAGE BAG, COLOSTOMY PRESENT, NO STOOL IN BAG, DRESSING TO COCCYX AND LEFT LOWER LEG, PRESENT, MODERATE AMOUNT OF DRAINAGE FROM COCCYX WOUND, DENIES ANY NEEDS OR DISCOMFORTS, BED LOWERED AND LOCKED, CALL LIGHT WITHIN REACH. CPOC
[2019-02-03 08:49] VITALS: BP 110/58
[2019-02-03 12:39] VITALS: BP 99/68
--- NOTE | 2019-02-03 14:54 | NUR ---
DRESSING TO BUTTOCKS AND LOWER EXTREMITIES CHANGED PER ORDER. DENIES ANY NEEDS, BED LOWERED AND LOCKED, CALL LIGHT WITHIN REACH. CPOC
[2019-02-03 17:55] VITALS: BP 146/123
--- NOTE | 2019-02-03 18:46 | NUR ---
LETHARGIC, ON 2LPM VIA HIGH FLOW NC, RIGHT SUBCLAVIN INFUSING NS AT 100ML/HR. 1ST STEP OVERLAY, BED LOWERED AND LOCKED, CALL LIGHT WITHIN REACH. CPOC
[2019-02-03 20:00] VITALS: BP 82/54
[2019-02-04] VITALS (68 sets, daily range): BP systolic 63–117; BP diastolic 44–82
[2019-02-04 06:13] LABS: HEMATOCRIT 30.7 % (42.0-54.0); HEMOGLOBIN 9.3 g/dL (13.5-17.5); MCH 24.3 pg (26.0-34.0); MCHC 30.3 g/dL (31.0-37.0); MCV 80.4 fL (80.0-100.0); MEAN PLATELET VOLUME 9.5 fL (7.4-10.4); PLATELET COUNT 307 10x3/uL (130-400); RBC 3.82 10x6/uL (4.20-6.10); RDW 19.2 % (11.5-14.5); WBC 37.2 10x3/uL (4.8-10.8)
[2019-02-04 06:26] LABS: ANION GAP 19.1 mmol/L (8-16); CALCIUM 7.7 mg/dL (8.5-10.1); POTASSIUM - SERUM 3.5 mmol/L (3.5-5.1)
[2019-02-04 06:29] LABS: CREATININE - SERUM 1.7 mg/dL (0.6-1.3)
[2019-02-04 06:30] LABS: CARBON DIOXIDE 15.4 mmol/L (21.0-32.0)
[2019-02-04 08:12] LABS: LYMPHOCYTES 3 % (15-50); MONOCYTES 5 % (2-11); NEUTROPHILS 82 % (40-80)
[2019-02-04 08:13] LABS: ANISOCYTOSIS OCC; PLATELET ESTIMATE NORMAL
--- NOTE | 2019-02-04 08:45 | NUR ---
opal leon called regarding low bp. instructed to increase fluids for bolus of 999cc/hr x 1.
--- NOTE | 2019-02-04 09:10 | NUR ---
NONE OF PT AM MEDICATION WAS ADMINISTERED DUE TO PT BEING TO LETHARGY TO TAKEN.
--- NOTE | 2019-02-04 09:10 | NUR ---
RECEIVED PT AT THIS TIME. HOOKED UP TO MONITOR. NS BOLUS INFUSING FOR HYPOTENSION. LEVOPHED DRIP INITIATED
--- NOTE | 2019-02-04 09:12 | NUR ---
WAS TRANSFERRED TO ICU AT THIS TIME ROOM 2308 D/T WBC INCREASING FROM 10.2 TO 37.2. PT WILL ANSWER WHEN NAME IS CALLED BULT STILL REMAIN LETHARGY. REPORT WAS GIVEN TO CHARGE NURSE AND PT WAS INSTABLE CONDITION UPON DEPARTURE.
--- NOTE | 2019-02-04 09:38 | NUR ---
SHAVING PATIENT IN PREPARATION FOR INTUBATION BY DR. BRAR
--- NOTE | 2019-02-04 09:41 | NUR ---
NUTRITION F/U PT NOW IN ICU, TO BE INTUBATED. WILL ASSIST WITH NUTRITION SUPPORT IF NEEDED. RD FOLLOWING
--- NOTE | 2019-02-04 10:00 | NUR ---
INITIATED RESTRAINTS AT THIS TIME AFTER INTUBATION. NOTIFIED DR. SANTIAGO'S LABORER PLUMBING BOGDAN ABOUT ICU TRANSFER, INTUBATION, AND LEVOPHED INITIATION.
--- NOTE | 2019-02-04 10:35 | NUR ---
SET UP PRESSURE CABLES FOR CVP. AFTER ZEROED OBTAINED CVP OF 5.
--- NOTE | 2019-02-04 12:06 | NUR ---
PT RESTING IN BED ON VENTILATOR PER ORDERED SETTINGS. VSS ON LEVOPHED DRIP. WILL CONTINUE TO MONITOR
--- NOTE | 2019-02-04 14:18 | NUR ---
OBTAINED ORDER FROM DR. BRAR FOR 1 LITER BOLUS FOR BP AND CVP OF 5.
--- NOTE | 2019-02-04 15:38 | NUR ---
CVP OF 8 AFTER ZEROING. TITIRATED LEVOPHED FROM 11MCG TO 10MCG/MIN FOR IMPROVED BP
--- NOTE | 2019-02-04 17:03 | NUR ---
PAGED DR. RUIZ ABOUT CLOGGED SUPRAPUBIC CATHETER. STATED HE WOULD COME BY AFTER MEETING.
--- NOTE | 2019-02-04 17:37 | NUR ---
DR. RUIZ CAME TO REPLACE BROWN DUE TO OCCLUSION. NEW BROWN FLUSHES BUT STILL NOT URINE RETURN.
--- NOTE | 2019-02-04 19:00 | NUR ---
REPORT RECEIVED, CARE ASSUMED. PT IS IN BED INTUBATED. PT REPOSITIONED FOR COMFORT. INITIAL ASSESSMENT COMPLETED, SEE FLOWSHEET FOR DETAILS. NO SIGNS OF ACUTE DISTRESS NOTED AT THIS TIME. WILL CONTINUE TO MONITOR.
--- NOTE | 2019-02-04 21:00 | NUR ---
PT IS RESTING IN BED INTUBATED. PT REPOSITIONED FOR COMFORT. ORAL CARE PREFORMED. NO SIGNS OF ACUTE DISTRESS. WILL CONTINUE TO MONITOR.
--- NOTE | 2019-02-04 23:00 | NUR ---
REASSESSMENT COMPLETED, SEE FLOWSHEET FOR DETAILS. PT IS IN BED INTUBATED AT THIS TIME. PT REPOSTIONED FOR COMFORT. ORAL CARE PREFORMED. NO SIGNS OF ACUTE DISTRESS. WILL CONTINUE TO MONITOR.
[2019-02-05] VITALS (105 sets, daily range): BP systolic 65–129; BP diastolic 44–98
--- NOTE | 2019-02-05 01:00 | NUR ---
PT IS IN BED INTUBATED. PT REPOSITIONED FOR COMFORT. ORAL CARE PREFORMED. NO SIGNS OF ACUTE DISTRESS. WILL CONTINUE TO MONITOR.
--- NOTE | 2019-02-05 03:00 | NUR ---
REASSESSMENT COMPLETED, SEE FLOWSHEET FOR DETAILS. PT IS IN BED INTUBATED AT THIS TIME. PT REPOSITIONED FOR COMFORT. ORAL CARE PREFORMED. NO SIGNS OF ACUTE DISTRESS. WILL CONTINUE TO MONITOR.
--- NOTE | 2019-02-05 04:47 | NUR ---
PO2 155 ON MORNING ABG. TITRATE FIO2 TO 45%
--- NOTE | 2019-02-05 05:00 | NUR ---
PT IS RESTING IN BED INTUBATED AND ON THE VENT. PT GIVEN A CHG BATH AND LINEN CHANGE. ALSO DRESSING CHANGE TO BUTTOCK COMPLETED. PT REPOSITIONED FOR COMFORT. ORAL CARE COMPLETED. NO SIGNS OF ACUTE DISTRESS NOTED AT THIS TIME. WILL CONTINUE TO MONITOR.
--- NOTE | 2019-02-05 07:15 | NUR ---
REPORT RECEIVED. PT ON VENT. SETTINGS PER RT. ON CONTACT PRECAUTIONS FOR VRE IN URINE. HEAD TO TOE ASSESSMENT COMPLETED. PT ON BICARB AND LEVOPHED. HAS A RIGHT SUBCLAVIAN. WILL CONTINUE TO MONITOR.
--- NOTE | 2019-02-05 08:30 | NUR ---
ADMISSIONS CALLED TO CHANGE ATTENDING PHYSICAL TO DR. BELLE.
[2019-02-05 08:37] LABS: ANION GAP 17.5 mmol/L (8-16); CALCIUM 7.6 mg/dL (8.5-10.1); CARBON DIOXIDE 17.7 mmol/L (21.0-32.0); CREATININE - SERUM 2.1 mg/dL (0.6-1.3); POTASSIUM - SERUM 3.2 mmol/L (3.5-5.1)
[2019-02-05 08:42] LABS: BASOPHILS 0 % (0-2); EOSINOPHILS 0 % (0-7); HEMATOCRIT 30.5 % (42.0-54.0); HEMOGLOBIN 9.3 g/dL (13.5-17.5); IMMATURE GRANULOCYTES 0.6 % (0-5); LYMPHOCYTES 2.9 % (15-50); MCH 24.5 pg (26.0-34.0); MCHC 30.5 g/dL (31.0-37.0); MCV 80.3 fL (80.0-100.0); MEAN PLATELET VOLUME 9.2 fL (7.4-10.4); MONOCYTES 1.2 % (2-11); NEUTROPHILS 95.3 % (40-80); PLATELET COUNT 282 10x3/uL (130-400); RDW 19.4 % (11.5-14.5); WBC 40.3 10x3/uL (4.8-10.8)
--- NOTE | 2019-02-05 09:24 | NUR ---
NUTRITION F//U CHART REVIEWED. PT REMAINS ON VENT WITH NO CURRENT NUTRITION SUPPORT. RECOMMEND STARTING OG TUBE FEEDS PULMOCARE. 1)PULMOCARE @ 20 CC/HR 2)INCREASE 10 CC/HR Q 8 HOURS TOLERATED TO GOAL RATE 55 CCC/HR 3)25 CC H2O FLUSH Q HOUR RD FOLLOWING
--- NOTE | 2019-02-05 09:45 | NUR ---
PT RESTING QUIETLY. DR BRAR ON FLOOR, ROUNDING ON PT. WAITING ON NEW ORDERS.
--- NOTE | 2019-02-05 11:20 | NUR ---
FENTANYL INFUSING. PT RESTING QUIETLY. CUFF OF ETT CONTINUES TO LEAK. CONTINUE TO ADD AIR TO BULB. LET RT KNOW. THEY ARE LETTING DR BRAR KNOW. PT REPOSITIONED. PT SUCTIONED. VSS. WILL CONTINUE TO MONITOR.
--- NOTE | 2019-02-05 11:51 | NUR ---
LEVOPHED TITRATED TO 9MCG/HR D/T LOW BP. REFER TO IV FLOWSHEET.
--- NOTE | 2019-02-05 13:29 | NUR ---
DR BRAR CHANGED ETT 8.0, 23 @LIP. SECURE
--- NOTE | 2019-02-05 13:31 | NUR ---
ETT CHANGED OUT BY DR BRAR D/T LEAK IN PRESSURE CUFF. PT TOLERATED WELL. CHEST XRAY ORDERED TO VERIFY PLACEMENT. VSS. WILL CONTINUE TO MONITOR.
--- NOTE | 2019-02-05 15:15 | NUR ---
REPOSITIONED AND SUCTIONED. ABD DISTENDED. VSS. WILL CONTINUE TO MONITOR.
--- NOTE | 2019-02-05 17:30 | NUR ---
VSS. PT REPOSITIONED AND SUCTIONED. LEVOPHED AT 12 MCG/HR. NO OUTPUT WITH SUPRAPUBIC CATH. NO OUTPUT WITH COLOSTOMY. KUB ORDERED. WILL CONTINUE TO MONITOR.
--- NOTE | 2019-02-05 18:41 | NUR ---
DRESSING TO LEFT LEG CHANGED. WET TO DRY WITH IODINE. RADIOLOGY IN TO DO KUB. WILL CONTINUE TO MONITOR.
--- NOTE | 2019-02-05 19:30 | NUR ---
PT SEDATED AND INTUBATED. WILL OPEN EYES, DOES NOT FOLLOW COMMANDS. FIO2 45%, SPO2 98. PERIPHERAL PULSES PRESENT, WEAK IN LOWER EXTREMITIES. ABD DISTENDED, BOWEL SOUNDS HYPOACTIVE. CATHETER INTACT. LEFT LEG WITH SORES, DRSGS CDI. BUTTOCK/COCCYX WITH PRESSURE ULCER, DRSG CDI. PARTIAL LINEN CHANGE PROVIDED. PT REPOSITIONED WITH PROMINENCES BRIDGED. ORAL CARE COMPLETED. ROOM VISIBLE FROM NURSES STATION, BILATERAL WRIST RESTRAINTS IN USE. CPOC.
--- NOTE | 2019-02-05 21:30 | NUR ---
HS MEDS GIVEN. PT REPOSITIONED WITH PROMINENCES BRIDGED. VSS, LEVOPHED INFUSING, SEE IV DRIP FLOWSHEET. ORAL CARE PROVIDED. NO S/S OF PAIN AT THIS TIME. ROOM VISIBLE FROM NURSES STATION. CPOC.
--- NOTE | 2019-02-05 22:00 | NUR ---
NO VISITORS DURING THE VISITATION.
--- NOTE | 2019-02-05 23:30 | NUR ---
REASSESSMENT COMPLETE, NO NEW CHANGES AT THIS TIME. PT REPOSITIONED WITH PROMINENCES BRIDGED. ORAL CARE PROVIDED. ROOM VISIBLE FROM NURSES STATION. CPOC.
[2019-02-06] VITALS (101 sets, daily range): BP systolic 78–115; BP diastolic 25–81
--- NOTE | 2019-02-06 01:30 | NUR ---
PT REPOSITIONED WITH PROMINENCES BRIDGED. ORAL CARE PROVIDED. PARTIAL LINEN CHANGE PROVIDED. WILL CONTINUE TO MONITOR.
--- NOTE | 2019-02-06 03:30 | NUR ---
REASSESSMENT COMPLETE, NO NEW CHANGES AT THIS TIME. PT REPOSITIONED WITH PROMINENCES BRIDGED. ORAL CARE PROVIDED. CPOC.
--- NOTE | 2019-02-06 04:40 | NUR ---
CVL DRSG CHANGED PER PROTOCOL. COCCYX/BUTTOCK DRSG CHANGED. COMPLETE LINEN CHANGE AND BATH. PROMINENCES BRIDGED. ORAL CARE PROVIDED. ROOM VISIBLE FROM NURSES STATION. CPOC.
--- NOTE | 2019-02-06 07:00 | NUR ---
REPORT RECIEVED FROM MARCY. PATIENT SEDATED. PATIENT TURNED. ASSESMENT COMPLETED. WILL CONTINUE TO MONITOR.
--- NOTE | 2019-02-06 09:00 | NUR ---
PATIENT ON RESTRAINTS. ORAL CARE PROVIDED. CVP ZEROED. MEDS GIVEN. PATIENT TURNED. DR BRAR AT BEDSIDE. UPDATE GIVEN. LEVOPHED TITRATED. SEE IV FLOWSHEET. WILL CONTINUE TO MONITOR.
--- NOTE | 2019-02-06 09:38 | NUR ---
NUTRITION F/U SPOKE WITH NURSING RE:STARTING TUBE FEEDS. STATED SHE WILL SPEAK TO PHYSICIAN AND CONTACT RD FOR ASSISTANCE IF NEEDED. RD FOLLOWING
--- NOTE | 2019-02-06 11:12 | NUR ---
SPOKE TO RUSSEL PUCKETT ON THE PHONE. HE CONSENTED TO LEFT LEG AMPUTATION.
[2019-02-06 11:20] LABS: HEMATOCRIT 29.5 % (42.0-54.0); HEMOGLOBIN 9.1 g/dL (13.5-17.5); MCH 24.1 pg (26.0-34.0); MCHC 30.8 g/dL (31.0-37.0); MCV 78.2 fL (80.0-100.0); MEAN PLATELET VOLUME 9.7 fL (7.4-10.4); PLATELET COUNT 214 10x3/uL (130-400); RBC 3.77 10x6/uL (4.20-6.10); RDW 19.4 % (11.5-14.5); WBC 46.6 10x3/uL (4.8-10.8)
--- NOTE | 2019-02-06 11:23 | NUR ---
DR RUIZ AT BEDSIDE. SUPRAPUBIC CATHETER REPLACED.
[2019-02-06 11:30] LABS: CALCIUM 7.3 mg/dL (8.5-10.1); CARBON DIOXIDE 14.4 mmol/L (21.0-32.0); CREATININE - SERUM 2.8 mg/dL (0.6-1.3); POTASSIUM - SERUM 3.4 mmol/L (3.5-5.1)
[2019-02-06 11:41] LABS: LYMPHOCYTES 3 % (15-50); NEUTROPHILS 90 % (40-80); PLATELET ESTIMATE NORMAL
--- NOTE | 2019-02-06 11:51 | NUR ---
SPOKE TO DR. GRIFFITH. UPDATE GIVEN. NO PLANS OF AKA OF RIGHT NOW.
--- NOTE | 2019-02-06 11:54 | MORECARE ---
CASE MANAGEMENT DISCHARGE SUMMARY PATIENT: CAROL VALVERDE UNIT: [id number] ADM DATE: 01/27/19 AGE: 68 : [birth year] SEX: M ROOM/BED: D.2308 AUTHOR: EDWAR STODDARD PHYSICIAN: REFERRING PHYSICIAN: APRYL BELLE MD DATE OF SERVICE: 02/06/19 Discharge Plan Patient Name: CAROL VALVERDE Facility: [facility]:[place] : 1950 Planned Disposition: Penitentiary Facility Anticipated Discharge Date: Discharge Date: Expected LOS: Initial Reviewer: [email or web address] Initial Review Date: 01/28/2019 Generated: 02/06/19 12:53 pm Comments DCP- Discharge Planning Updated by [id number]: Gricelda Coto on 02/06/19 10:[address] CM was able to get in touch with patient's cousin Michael Valverde [phone]. CM spoke to Michael about patient's condition and that Doctors are recommending patient have a Left Above Knee Amputation. Michael stated that he was willing to give consent for amputation but was not willing to make a change in patients code status. Michael stated that he had not spoken to patient in regards to what his wishes were in this situation. At this time Michael wishes to keep patient a full code. KRISTAN then turned phone over to Isabel Lazar RN to obtain consent. Michael requested for staff to call and give updates on patients condition. CM notified Ketty Avendaño (ethics) that we have obtained consent from family for amputation. CM will continue to follow and assist as needed with discharge planning / needs. DCP- Discharge Planning Updated by [email or web address]: Rajni Tate on 02/02/19 10:[address] Patient Name: CAROL VALVERDE Admission Status: ER Accout number: [id number] Admission Date: 01-27-2019 : 1950 Admission Diagnosis:SEPSIS, UNSPECIFIED ORGANISM Attending: ALBERTO SANTIAGO Current LOS: 6 Anticipated DC Date: Planned Disposition: Penitentiary Facility Primary Insurance: MEDICARE PART A ONLY Discharge Planning Comments: CM EMAILED KETTY AVENDAÑO AND BEN REGARDING THE CONSULT FOR ETHICS COMMITTEE INVOLVMENT FOR CONSENT FOR POSSIBLE AKA. CM WILL FOLLOW AND ASSIST NEEDED. Insemination Worker: Rajni Tate DCP- Discharge Planning Updated by [id number]: Gricelda Coto on 01/28/19 2:[address] Patient Name: CAROL VALVERDE Admission Status: ER Accout number: [id number] Admission Date: 01-27-2019 : 1950 Admission Diagnosis: Attending: ALBERTO SANTIAGO Current LOS: 1 Anticipated DC Date: Planned Disposition: Nursing Facility [facility] Primary Insurance: MEDICARE PART A ONLY Discharge Planning Comments: CM attempted to meet with patient difficult to arouse and confused. Patient is a resident at [facility] [phone]. Patient unable to sign SAMANTA at this time. Patient plans at this time is return to the [facility] upon discharge. CM spoke with [facility] and they plan on him returning their facility upon discharge. The patient was in a Medicare bed prior to transferring to [facility]. CM will continue to follow and assist as needed with discharge planning /needs. Insemination Worker: Gricelda Coto DCPIA - Discharge Planning Initial Assessment Updated by [id number]: Gricelda Coto on 01/28/19 3:03 pm * Is the patient Alert and Oriented? No * PCP Donell * Pharmacy [facility] * Preadmission Environment [facility] * ADLs Total Dependent * List name and contact numbers for known caregivers / representatives who currently or will assist patient after discharge: [facility]- [phone] * Verbal permission to speak to the caregivers and representatives has been obtained from the patient. N/A * Community resources currently utilized None * Additional services required to return to the preadmission environment? No * Can the patient safely return to the preadmission environment? Yes * Has this patient been hospitalized within the prior 30 days at any hospital? No Last DP export: 02/02/19 10:29 a Patient Name: CAROL VALVERDE Page [id number] at 1154 All edits/amendments must be made on the electronic document DICTATION DATE: 02/06/19 1153 RIP TAILER: SIDDHARTHA 02/06/19 1153 RPT#: [id number] DC DATE: STATUS: ADM IN [facility] [address] [place] [address] END OF REPORT
--- NOTE | 2019-02-06 12:43 | NUR ---
DR. BRAR AT BEDSIDE. UPDATE GIVEN.
--- NOTE | 2019-02-06 15:00 | NUR ---
patient sedated. lungs CTA. patient maxed out on levophed. patient turned. patient bathed at this time.
--- NOTE | 2019-02-06 17:00 | NUR ---
patient leg dressings changed at this time. patient turned. complete linen change. patient stable. will continue to monitor.
--- NOTE | 2019-02-06 19:00 | NUR ---
SHIFT ASSESSMENT COMPLETE. VS STABLE. NO VISUAL CUES OF DISTRESS NOTED. WILL CONTINUE TO MONITOR.
--- NOTE | 2019-02-06 21:00 | NUR ---
VS STABLE. NO VISUAL CUES OF DISTRESS NOTED. WILL MONITOR.
--- NOTE | 2019-02-06 23:00 | NUR ---
VS STABLE. NO VISUAL CUES OF DISTRESS NOTED. WILL MONITOR.
[2019-02-07] VITALS (94 sets, daily range): BP systolic 78–130; BP diastolic 26–87
--- NOTE | 2019-02-07 03:00 | NUR ---
VS STABLE. NO VISUAL CUES OF DISTRESS NOTED. WILL MONITOR.
--- NOTE | 2019-02-07 04:00 | NUR ---
VS STABLE. NO VISUAL CUES OF DISTRESS NOTED. WILL MONITOR.
[2019-02-07 04:52] LABS: ANION GAP 25.6 mmol/L (8-16); CARBON DIOXIDE 13.1 mmol/L (21.0-32.0); CREATININE - SERUM 2.9 mg/dL (0.6-1.3); POTASSIUM - SERUM 3.7 mmol/L (3.5-5.1)
[2019-02-07 04:55] LABS: BASOPHILS 0 % (0-2); EOSINOPHILS 0 % (0-7); HEMATOCRIT 26.8 % (42.0-54.0); HEMOGLOBIN 8.2 g/dL (13.5-17.5); LYMPHOCYTES 2.3 % (15-50); MCH 24.3 pg (26.0-34.0); MCHC 30.6 g/dL (31.0-37.0); MCV 79.3 fL (80.0-100.0); MEAN PLATELET VOLUME 9.8 fL (7.4-10.4); MONOCYTES 0.9 % (2-11); NEUTROPHILS 95.8 % (40-80); PLATELET COUNT 183 10x3/uL (130-400); RBC 3.38 10x6/uL (4.20-6.10); RDW 19.5 % (11.5-14.5); WBC 40.5 10x3/uL (4.8-10.8)
--- NOTE | 2019-02-07 05:00 | NUR ---
VS STABLE. NO VISUAL CUES OF DISTRESS NOTED. WILL MONITOR.
[2019-02-07 05:18] LABS: CALCIUM 6.8 mg/dL (8.5-10.1)
--- NOTE | 2019-02-07 07:51 | OP ---
PATIENT NAME: CAROL PUCKETT MEDICAL RECORD: [id number] :[birth year] LOCATION:D.ICU D.2308 ADMISSION DATE:01/27/19 SURGEON: ZACHARY KUMAR MD DATE OF OPERATION: 01/31/2019 PREOPERATIVE DIAGNOSES: 1. Need for IV access. 2. Urosepsis. 3. Bacteremia. 4. Septic shock, which is resolved. 5. Decubitus ulcers. 6. Acute kidney injury. 7. Bipolar disorder. 8. Diabetes mellitus. POSTOPERATIVE DIAGNOSES: 1. Need for IV access. 2. Urosepsis. 3. Bacteremia. 4. Septic shock, which is resolved. 5. Decubitus ulcers. 6. Acute kidney injury. 7. Bipolar disorder. 8. Diabetes mellitus. PROCEDURE: Right subclavian vein triple-lumen central venous line placement. SURGEON: Zachary Kumar MD REPORT OF PROCEDURE: The patient's right chest was prepped and draped in sterile fashion. A total of 5 cc of 1% lidocaine with epinephrine was infused into the surrounding tissues. A needle was then used to cannulate the right subclavian vein and a guidewire was advanced with ease. Over this wire, a dilator was placed followed by the triple lumen catheter. The catheter aspirated nonpulsatile dark blood and flushed easily in all 3 ports. This was sutured into place with 3-0 Prolene and dressed appropriately. COMPLICATIONS: None. CONDITION: Stable. ANESTHESIA: Local. BLOOD LOSS: Minimal. Procedure was done in the ICU at the bedside. TRANSINT:[id number] Voice Confirmation ID: [id number] DOCUMENT ID: [id number] OPERATIVE REPORT [id number] LAVERNCAROL Lyudmila ZACHARY KUMAR MD at 0751 CC: [id number] DICTATION DATE: 01/31/19 1451 MANAGER INSTRUMENTATION: 01/31/19 1528 [place] [address]
--- NOTE | 2019-02-07 11:10 | NUR ---
VASOPRESSIN STARTED AT A SET RATE OF 0.04 UNITS/MIN PER . MONITORS ON AND WORKING, VITALS STABLE, SEE FLOW SHEET FOR FURTHER DETAILS. WILL CONTINUE TO OBSERVE.
--- NOTE | 2019-02-07 14:00 | NUR ---
REC'D PT BACK FROM OR FOR LEFT AKA. PT CAME BACK FROM OR WITHOUT RESTRAINTS AND LEVOPHED OFF, VITALS STABLE. LEFT AKA BANDAGE CDI. WILL CONTINUE TO OBSERVE.
--- NOTE | 2019-02-07 19:00 | NUR ---
SHIFT ASSESSMENT COMPLETE. NO VISUAL CUES OF DISTRESS NOTED. VS STABLE WILL CONTINUE TO MONITOR.
--- NOTE | 2019-02-07 21:00 | NUR ---
VS STABLE. NO VISUAL CUES OF DISTRESS NOTED. WILL MONITOR.
[2019-02-07 21:43] LABS: HEMATOCRIT 33.3 % (42.0-54.0); HEMOGLOBIN 10.7 g/dL (13.5-17.5); MCH 26.4 pg (26.0-34.0); MCHC 32.1 g/dL (31.0-37.0); MCV 82.2 fL (80.0-100.0); MEAN PLATELET VOLUME 9.6 fL (7.4-10.4); PLATELET COUNT 107 10x3/uL (130-400); RBC 4.05 10x6/uL (4.20-6.10); RDW 19.8 % (11.5-14.5); WBC 27.3 10x3/uL (4.8-10.8)
[2019-02-07 21:58] LABS: ALBUMIN 0.7 g/dL (3.4-5.0); BILIRUBIN - TOTAL 0.69 mg/dL (0.2-1.3); MAGNESIUM - SERUM 1.1 mg/dL (1.8-2.4); PROTEIN - SERUM 5.3 g/dL (6.4-8.2)
[2019-02-07 21:59] LABS: ANION GAP 25.4 mmol/L (8-16); POTASSIUM - SERUM 4.3 mmol/L (3.5-5.1)
[2019-02-07 22:05] LABS: LYMPHOCYTES 3 % (15-50); MONOCYTES 2 % (2-11); NEUTROPHILS 89 % (40-80)
[2019-02-07 22:05] LABS: CARBON DIOXIDE 9.9 mmol/L (21.0-32.0)
[2019-02-07 22:06] LABS: ANISOCYTOSIS 1+; PLATELET ESTIMATE DECREASED; POIKILOCYTOSIS 1+
--- NOTE | 2019-02-07 23:00 | NUR ---
VS STABLE. NO VISUAL CUES OF DISTRESS NOTED. WILL MONITOR.
[2019-02-08] VITALS (89 sets, daily range): BP systolic 82–118; BP diastolic 30–88
--- NOTE | 2019-02-08 01:00 | NUR ---
VS STABLE. NO VISUAL CUES OF DISTRESS NOTED. WILL MONITOR.
--- NOTE | 2019-02-08 01:00 | NUR ---
VS STABLE. NO VISUAL CUES OF DISTRESS NOTED. WILL MONITOR.
--- NOTE | 2019-02-08 03:00 | NUR ---
VS STABLE. NO VISUAL CUES OF DISTRESS NOTED. WILL MONITOR.
--- NOTE | 2019-02-08 03:00 | NUR ---
VS STABLE. NO VISUAL CUES OF DISTRESS NOTED. WILL MONITOR.
[2019-02-08 05:24] LABS: BASOPHILS 0 % (0-2); EOSINOPHILS 0 % (0-7); HEMATOCRIT 30.9 % (42.0-54.0); IMMATURE GRANULOCYTES 2.8 % (0-5); LYMPHOCYTES 2.1 % (15-50); MCH 26.3 pg (26.0-34.0); MCHC 32.4 g/dL (31.0-37.0); MCV 81.3 fL (80.0-100.0); MEAN PLATELET VOLUME 10.5 fL (7.4-10.4); MONOCYTES 2.2 % (2-11); NEUTROPHILS 92.9 % (40-80); PLATELET COUNT 124 10x3/uL (130-400); RDW 20.2 % (11.5-14.5); WBC 22.7 10x3/uL (4.8-10.8)
[2019-02-08 05:25] LABS: CREATININE - SERUM 3.2 mg/dL (0.6-1.3); POTASSIUM - SERUM 4.4 mmol/L (3.5-5.1)
[2019-02-08 05:38] LABS: ANION GAP 27.41 mmol/L (8-16)
--- NOTE | 2019-02-08 05:46 | NUR ---
VS STABLE. NO VISUAL CUES OF DISTRESS NOTED. WILL MONITOR.
--- NOTE | 2019-02-08 05:47 | NUR ---
VS STABLE. NO VISUAL CUES OF DISTRESS NOTED. WILL MONITOR.
--- NOTE | 2019-02-08 05:52 | NUR ---
VS STABLE. NO VISUAL CUES OF DISTRESS NOTED. WILL MONITOR.
--- NOTE | 2019-02-08 10:23 | NUR ---
CALLED Rx ABOUT CALCIUM ORDER, WILL GIVE WHEN ARRIVES FROM Rx
--- NOTE | 2019-02-08 12:13 | NUR ---
NUTRITION F/U CHART REVIEWED, SPOKE WITH MD AND NURSING. RECOMMEND STARTING TRICKLE TUBE FEEDS WHEN MEDICALLY FEASIBLE. RD FOLLOWING
--- NOTE | 2019-02-08 13:38 | NUR ---
RECD. REPORT FROM SCHOOL PHYSICAL THERAPIST
--- NOTE | 2019-02-08 15:05 | MORECARE ---
CASE MANAGEMENT DISCHARGE SUMMARY PATIENT: CAROL VALVERDE UNIT: [id number] ADM DATE: 01/27/19 AGE: 68 : 48 SEX: M ROOM/BED: D.2308 AUTHOR: EDWAR STODDARD PHYSICIAN: REFERRING PHYSICIAN: APRYL BELLE MD DATE OF SERVICE: 02/08/19 Discharge Plan Patient Name: CAROL VALVERDE Facility: [facility]:[place] : 1950 Planned Disposition: Detention Facility Anticipated Discharge Date: Discharge Date: Expected LOS: Initial Reviewer: [email or web address] Initial Review Date: 01/28/2019 Generated: 02/08/19 4:04 pm DCP- Discharge Planning Updated by [email or web address]: Gricelda Coto on 02/06/19 10:[address] CM was able to get in touch with patient's cousin Michael Valverde [phone]. CM spoke to Michael about patient's condition and that Doctors are recommending patient have a Left Above Knee Amputation. Michael stated that he was willing to give consent for amputation but was not willing to make a change in patients code status. Michael stated that he had not spoken to patient in regards to what his wishes were in this situation. At this time Michael wishes to keep patient a full code. KRISTAN then turned phone over to Isabel Lazar RN to obtain consent. Michael requested for staff to call and give updates on patients condition. CM notified Ketty Avendaño (ethics) that we have obtained consent from family for amputation. CM will continue to follow and assist as needed with discharge planning / needs. DCP- Discharge Planning Updated by [email or web address]: Rajni Tate on 02/02/19 10:[address] Patient Name: CAROL VALVERDE Admission Status: ER Accout number: [id number] Admission Date: 01-27-2019 : 1950 Admission Diagnosis:SEPSIS, UNSPECIFIED ORGANISM Attending: ALBERTO SANTIAGO Current LOS: 6 Anticipated DC Date: Planned Disposition: Detention Facility Primary Insurance: MEDICARE PART A ONLY Discharge Planning Comments: CM EMAILED KETTY AVENDAÑO AND BEN REGARDING THE CONSULT FOR ETHICS COMMITTEE INVOLVMENT FOR CONSENT FOR POSSIBLE AKA. CM WILL FOLLOW AND ASSIST NEEDED. Business Analytics Faculty Member: Rajni Tate DCP- Discharge Planning Updated by [email or web address]: Gricelda Coto on 01/28/19 2:[address] Patient Name: CAROL VALVERDE Admission Status: ER Accout number: [id number] Admission Date: 01-27-2019 : 1950 Admission Diagnosis: Attending: ALBERTO SANTIAGO Current LOS: 1 Anticipated DC Date: Planned Disposition: Nursing Facility [facility] Primary Insurance: MEDICARE PART A ONLY Discharge Planning Comments: CM attempted to meet with patient difficult to arouse and confused. Patient is a resident at [facility] [phone]. Patient unable to sign SAMANTA at this time. Patient plans at this time is return to the [facility] upon discharge. CM spoke with [facility] and they plan on him returning their facility upon discharge. The patient was in a Medicare bed prior to transferring to [facility]. CM will continue to follow and assist as needed with discharge planning /needs. Business Analytics Faculty Member: Gricelda Coto DCPIA - Discharge Planning Initial Assessment Updated by [email or web address]: Gricelda Coto on 01/28/19 3:03 pm * Is the patient Alert and Oriented? No * PCP Donell * Pharmacy [facility] * Preadmission Environment Legal Director Halfway * ADLs Total Dependent * List name and contact numbers for known caregivers / representatives who currently or will assist patient after discharge: [facility]- [phone] * Verbal permission to speak to the caregivers and representatives has been obtained from the patient. N/A * Community resources currently utilized None * Additional services required to return to the preadmission environment? No * Can the patient safely return to the preadmission environment? Yes * Has this patient been hospitalized within the prior 30 days at any hospital? No External Providers External Provider: [facility] [place] Next Contact Date: Service Request Date: Service Type: Resolution: Reviewer: Comments: Last DP export: 02/06/19 10:53 a Patient Name: CAROL VALVERDE Page 07113 at 1505 All edits/amendments must be made on the electronic document DICTATION DATE: 02/08/19 1504 JANITORIAL ASSISTANT: SIDDHARTHA 02/08/19 1504 RPT#: [id number] DC DATE: STATUS: ADM IN [facility] [address] [place] [address] END OF REPORT
--- NOTE | 2019-02-08 19:15 | NUR ---
SHIFT ASSESSMENT COMPLETED SEE FLOWSHEET. PT INTUBATED, NOT SEDATED OPENS EYES DOES NOT FOLLOW COMMANDS
--- NOTE | 2019-02-08 19:29 | MORECARE ---
CASE MANAGEMENT DISCHARGE SUMMARY PATIENT: CAROL VALVERDE UNIT: [id number] ADM DATE: 01/27/19 AGE: 68 : 48 SEX: M ROOM/BED: D.2308 AUTHOR: ARLYN,DOC PHYSICIAN: REFERRING PHYSICIAN: APRYL BELLE MD DATE OF SERVICE: 02/08/19 Discharge Plan Patient Name: CAROL VALVERDE Facility: [facility]:[place] : 1950 Planned Disposition: Senior Living Facility Anticipated Discharge Date: Discharge Date: Expected LOS: Initial Reviewer: [email or web address] Initial Review Date: 01/28/2019 Generated: 02/08/19 8:29 pm Comments DCP- Discharge Planning Updated by [email or web address]: Gricelda Coto on 02/08/19 6:[address] CM received notice regarding LTACH placement at [facility] in [place]. Nursing staff had contacted facility and sent face sheet. Paradise Campos APN called CM in regards to a patient most likely needing to start hemodialysis in near future. Paradise asked if we should go before ethics committee in regards to patient poor prognosis and patient's cousin Michael wishes to keep patient a full code. KRISTAN was able to get in touch with Michael. KRISTAN gave Michael update on patients status. KRISTAN explained that patient is going into renal failure and he may need dialysis in near future. Michael gave consent that if patient needed dialysis and he would give consent for dialysis access placement. KRISTAN then asked about LTACH and Michael stated that he was alright with patient going to LTACH facility but he would like it in [facility] or [place], [place] if possible so he could see him. KRISTAN explained that she would check on availability. Michael still wants patient to remain a full code. CM will continue to follow and assist as needed with discharge planning / needs. DCP- Discharge Planning Updated by [email or web address]: Gricelda Coto on 02/06/19 10:[address] CM was able to get in touch with patient's cousin Michael Valverde [phone]. CM spoke to Michael about patient's condition and that Doctors are recommending patient have a Left Above Knee Amputation. Michael stated that he was willing to give consent for amputation but was not willing to make a change in patients code status. Michael stated that he had not spoken to patient in regards to what his wishes were in this situation. At this time Michael wishes to keep patient a full code. CM then turned phone over to Isabel Lazar RN to obtain consent. Michael requested for staff to call and give updates on patients condition. CM notified Maurizio Avendaño (ethics) that we have obtained consent from family for amputation. CM will continue to follow and assist as needed with discharge planning / needs. DCP- Discharge Planning Updated by [email or web address]: Rajni Tate on 02/02/19 10:[address] Patient Name: CAROL VALVERDE Admission Status: ER Accout number: [id number] Admission Date: 01-27-2019 : 1950 Admission Diagnosis:SEPSIS, UNSPECIFIED ORGANISM Attending: ALBERTO SANTIAGO Current LOS: 6 Anticipated DC Date: Planned Disposition: Senior Living Facility Primary Insurance: MEDICARE PART A ONLY Discharge Planning Comments: CM EMAILED MAURIZIO AVENDAÑO AND BEN REGARDING THE CM CONSULT FOR ETHICS COMMITTEE INVOLVMENT FOR CONSENT FOR POSSIBLE AKA. CM WILL FOLLOW AND ASSIST NEEDED. Web Production Manager: Rajni Tate DCP- Discharge Planning Updated by [email or web address]: Gricelda Coto on 01/28/19 2:[address] Patient Name: CAROL VALVERDE Admission Status: ER Accout number: [id number] Admission Date: 01-27-2019 : 1950 Admission Diagnosis: Attending: ALBERTO SANTIAGO Current LOS: 1 Anticipated DC Date: Planned Disposition: Nursing Facility [facility] Primary Insurance: MEDICARE PART A ONLY Discharge Planning Comments: CM attempted to meet with patient difficult to arouse and confused. Patient is a resident at [facility] [phone]. Patient unable to sign SAMANTA at this time. Patient plans at this time is return to the [facility] upon discharge. CM spoke with [facility] and they plan on him returning their facility upon discharge. The patient was in a Medicare bed prior to transferring to [facility]. CM will continue to follow and assist as needed with discharge planning /needs. Web Production Manager: Gricelda Coto DCPIA - Discharge Planning Initial Assessment Updated by [email or web address]: Gricelda Chica on 01/28/19 3:03 pm * Is the patient Alert and Oriented? No * PCP Donell * Pharmacy [facility] * Preadmission Environment [facility] * ADLs Total Dependent * List name and contact numbers for known caregivers / representatives who currently or will assist patient after discharge: [facility] - [facility]- [phone] * Verbal permission to speak to the caregivers and representatives has been obtained from the patient. N/A * Community resources currently utilized None * Additional services required to return to the preadmission environment? No * Can the patient safely return to the preadmission environment? Yes * Has this patient been hospitalized within the prior 30 days at any hospital? No Last DP export: 02/08/19 2:05 p Patient Name: CAROL VALVERDE Page 06276 at 1929 All edits/amendments must be made on the electronic document DICTATION DATE: 02/08/191928 AIX ADMINISTRATOR: SIDDHARTHA 02/08/191928 RPT#: [id number] DC DATE: STATUS: ADM IN [facility] [address] [place] [address] END OF REPORT
--- NOTE | 2019-02-08 19:36 | MORECARE ---
CASE MANAGEMENT DISCHARGE SUMMARY PATIENT: CAROL VALVERDE UNIT: [id number] ADM DATE: 01/27/19 AGE: 68 : 48 SEX: M ROOM/BED: D.2308 AUTHOR: ARLYN,DOC PHYSICIAN: REFERRING PHYSICIAN: APRYL BELLE MD DATE OF SERVICE: 02/08/19 Discharge Plan Patient Name: CAROL VALVERDE Facility: [facility]:[place] : 1950 Planned Disposition: Shelter Facility Anticipated Discharge Date: Discharge Date: Expected LOS: Initial Reviewer: [email or web address] Initial Review Date: 01/28/2019 Generated: 02/08/19 8:36 pm Comments DCP- Discharge Planning Updated by [email or web address]: Gricelda Coto on 02/08/19 6:[address] CM received notice regarding LTACH placement at [facility] in [place]. Nursing staff had contacted facility and sent face sheet. Paradise Campos APN called CM in regards to a patient most likely needing to start hemodialysis in near future. Paradise asked if we should go before ethics committee in regards to patient poor prognosis and patient's cousin Michael wishes to keep patient a full code. CM was able to get in touch with Michael. KRISTAN gave Michael update on patients status. KRISTAN explained that patient is going into renal failure and he may need dialysis in near future. Michael gave consent that if patient needed dialysis and he would give consent for dialysis access placement. KRISTAN then asked about LTACH and Michael stated that he was alright with patient going to LTACH facility but he would like it in [facility] or [place], [place] if possible so he could see him. CM explained that she would check on availability. Michael still wants patient to remain a full code. CM will continue to follow and assist as needed with discharge planning / needs. Appended by Gricelda Coto on 02/08/2019 19:30 CDT: Dr. Parekh documented in chart that patient wasn't stable enough for hemodialysis and recommended palliative care. Negrito with [facility] stated that patient will need to have dialysis access and started on dialysis prior to admission to LTACH. DCP- Discharge Planning Updated by [email or web address]: Gricelda Manciar on 02/06/19 10:[address] CM was able to get in touch with patient's cousin Michael Valverde [phone]. CM spoke to Michael about patient's condition and that Doctors are recommending patient have a Left Above Knee Amputation. Michael stated that he was willing to give consent for amputation but was not willing to make a change in patients code status. Michael stated that he had not spoken to patient in regards to what his wishes were in this situation. At this time Michael wishes to keep patient a full code. CM then turned phone over to Isabel Lazar RN to obtain consent. Michael requested for staff to call and give updates on patients condition. CM notified Maurizio Avendaño (ethics) that we have obtained consent from family for amputation. CM will continue to follow and assist as needed with discharge planning / needs. DCP- Discharge Planning Updated by [email or web address]: Rajni Tate on 02/02/19 10:[address] Patient Name: CAROL VALVERDE Admission Status: ER Accout number: [id number] Admission Date: 01-27-2019 : 1950 Admission Diagnosis:SEPSIS, UNSPECIFIED ORGANISM Attending: ALBERTO SANTIAGO Current LOS: 6 Anticipated DC Date: Planned Disposition: Shelter Facility Primary Insurance: MEDICARE PART A ONLY Discharge Planning Comments: CM EMAILED MAURIZIO AVENDAÑO AND BEN REGARDING THE CM CONSULT FOR ETHICS COMMITTEE INVOLVMENT FOR CONSENT FOR POSSIBLE AKA. CM WILL FOLLOW AND ASSIST NEEDED. Comb Winder: Rajni Tate DCP- Discharge Planning Updated by [id number]: Gricelda Manciar on 01/28/19 2:[address] Patient Name: CAROL VALVERDE Admission Status: ER Accout number: [id number] Admission Date: 01-27-2019 : 1950 Admission Diagnosis: Attending: ALBERTO SANTIAGO Current LOS: 1 Anticipated DC Date: Planned Disposition: Nursing Facility [facility] Primary Insurance: MEDICARE PART A ONLY Discharge Planning Comments: CM attempted to meet with patient difficult to arouse and confused. Patient is a resident at [facility] [phone]. Patient unable to sign SAMANTA at this time. Patient plans at this time is return to [facility] upon discharge. CM spoke with [facility] and they plan on him returning their facility upon discharge. The patient was in a Medicare bed prior to transferring to [facility]. CM will continue to follow and assist as needed with discharge planning /needs. Comb Winder: Gricelda Coto DCPIA - Discharge Planning Initial Assessment Updated by [id number]: Gricelda Coto on 01/28/19 3:03 pm * Is the patient Alert and Oriented? No * PCP Donell * Pharmacy [facility] * Preadmission Environment [facility] * ADLs Total Dependent * List name and contact numbers for known caregivers / representatives who currently or will assist patient after discharge: [facility] - [facility]- [phone] * Verbal permission to speak to the caregivers and representatives has been obtained from the patient. N/A * Community resources currently utilized None * Additional services required to return to the preadmission environment? No * Can the patient safely return to the preadmission environment? Yes * Has this patient been hospitalized within the prior 30 days at any hospital? No Last DP export: 02/08/19 6:29 p Patient Name: CAROL VALVERDE Page 06310 at 1936 All edits/amendments must be made on the electronic document DICTATION DATE: 02/08/191935 TUG BOAT ENGINEER: SIDDHARTHA 02/08/191935 RPT#: [id number] DC DATE: STATUS: ADM IN [facility] [address] [place] [address] END OF REPORT
--- NOTE | 2019-02-08 21:25 | NUR ---
DR. BRAR CALLED FOR PATIENT UPDATE. ALL QUESTIONS ANSWERED UPDATE GIVEN. NO SEDATION OR PAIN MEDICATION TO BE GIVEN. RECEIVED VERBAL TELEPHONE ORDER FOR 25 MCG/HR CONTINOUS DOSE IF NEEDED OVERNIGHT FOR VENTILATOR COMPLIANCE ONLY
--- NOTE | 2019-02-08 23:05 | NUR ---
REASSESSMENT COMPLETED SEE FLOWSHEET
[2019-02-09] VITALS (97 sets, daily range): BP systolic 65–133; BP diastolic 44–95
--- NOTE | 2019-02-09 03:48 | NUR ---
NOTED DECREASE IN SYSTOLIC BP - IV TUBING HAS POSITIONAL KINK, CHANGED LINE, LEVOPHED FLOWING AT APPROPRIATE RATE WILL CONTINUE TO MONITOR
--- NOTE | 2019-02-09 05:12 | NUR ---
SYSTOLIC BP WITHIN APPROPRIATE PARAMETERS. NO TITRATION NECESSARY
--- NOTE | 2019-02-09 05:51 | NUR ---
PT INTUBATED, NO SEDATION, NO MOTOR RESPONSE. VSS , CPOC
[2019-02-09 06:58] LABS: BASOPHILS 0 % (0-2); EOSINOPHILS 0.1 % (0-7); HEMATOCRIT 26.5 % (42.0-54.0); HEMOGLOBIN 8.7 g/dL (13.5-17.5); IMMATURE GRANULOCYTES 3.5 % (0-5); LYMPHOCYTES 3.5 % (15-50); MCHC 32.8 g/dL (31.0-37.0); MCV 79.3 fL (80.0-100.0); MEAN PLATELET VOLUME 9.6 fL (7.4-10.4); NEUTROPHILS 87.9 % (40-80); PLATELET COUNT 80 10x3/uL (130-400); RBC 3.34 10x6/uL (4.20-6.10); RDW 20.2 % (11.5-14.5); WBC 15.9 10x3/uL (4.8-10.8)
[2019-02-09 07:13] LABS: PLATELET ESTIMATE DECREASED
[2019-02-09 07:28] LABS: MAGNESIUM - SERUM 1.4 mg/dL (1.8-2.4)
[2019-02-09 07:45] LABS: APPEARANCE TURBID (CLEAR); COLOR BROWN (YELLOW); GLUCOSE NEGATIVE (NEGATIVE); NITRITE NEGATIVE (NEGATIVE); PROTEIN 2+ mg/dL (NEGATIVE); SPECIFIC GRAVITY 1.005 (1.005-1.020)
[2019-02-09 07:46] LABS: AMORPHOUS SEDIMENT <1+ /lpf (NONE SEEN); BACTERIA MANY /hpf (NONE SEEN); BILIRUBIN NEGATIVE (NEGATIVE); KETONE NEGATIVE (NEGATIVE); MUCUS <1+ /lpf (NONE SEEN); RED CELLS - URINE 25-50 /hpf (0-5); UROBILINOGEN NORMAL (NORMAL); WHITE CELLS - URINE 25-50 /hpf (0-5); YEAST >1+ WITH HYPHAE /hpf (NONE SEEN)
[2019-02-09 08:53] LABS: ALBUMIN 0.6 g/dL (3.4-5.0); BILIRUBIN - TOTAL 0.58 mg/dL (0.2-1.3); CREATININE - SERUM 3.4 mg/dL (0.6-1.3); POTASSIUM - SERUM 4.4 mmol/L (3.5-5.1); PROTEIN - SERUM 4.7 g/dL (6.4-8.2)
[2019-02-09 08:54] LABS: ANION GAP 23.2 mmol/L (8-16); CARBON DIOXIDE 14.2 mmol/L (21.0-32.0)
[2019-02-09 08:55] LABS: CALCIUM 6.7 mg/dL (8.5-10.1)
[2019-02-09 09:12] LABS: HEPATITIS C ANTIBODY <0.1 S/CO RAT (0.0-0.9)
--- NOTE | 2019-02-09 10:05 | NUR ---
CORRECTED CALCIUM 9.4
--- NOTE | 2019-02-09 12:05 | NUR ---
Nutrition Consult: Consult received to start TPN. Order in to start Procalamine 3% @ 50 ml/hr per weekend protocol. RD following.
--- NOTE | 2019-02-09 19:40 | NUR ---
SHIFT ASSESSMENT COMPLETED SEE FLOWSHEET, NO APPARENT DISTRESS, NEW WOUND NOTED ON ABDOMEN. VSS CPOC
--- NOTE | 2019-02-09 21:15 | NUR ---
PT INTUBATED, NO SEDATION, OPENS EYES - NO MOTOR RESPONSE BUT TRACKING WITH EYES - VSS CPOC
--- NOTE | 2019-02-09 21:16 | NUR ---
DR MENDOZA INFORMED OF NEW POTENTIAL WOUND LOCATED ON PATIENTS ABDOMEN. NEW ORDERS RECEIVED
--- NOTE | 2019-02-09 23:43 | NUR ---
REASSESSMENT COMPLETED SEE FLOWSHEET, VSS CPOC
[2019-02-10] VITALS (91 sets, daily range): BP systolic 96–163; BP diastolic 58–105
--- NOTE | 2019-02-10 03:15 | NUR ---
REASSESSMENT COMPLETED SEE FLOWSHEET, NO CHANGES, VSS - PATIENT TRACKING WITH EYES BUT NO MOTOR RESPONSE, CPOC
--- NOTE | 2019-02-10 06:21 | NUR ---
PATIENT RECEIVED HIBICLEANSE BATH AND FULL LINEN CHANGE, DRESSING CHANGE TO BUTTOCKS, COCCYX, AND RIGHT LEG COMPLETED. TACHYCARDIA NOTED DURING PROCESS. CPOC
[2019-02-10 06:41] LABS: HEMATOCRIT 25.2 % (42.0-54.0); HEMOGLOBIN 8.4 g/dL (13.5-17.5); MCH 26.2 pg (26.0-34.0); MCHC 33.3 g/dL (31.0-37.0); MCV 78.5 fL (80.0-100.0); MEAN PLATELET VOLUME 9.9 fL (7.4-10.4); PLATELET COUNT 64 10x3/uL (130-400); RBC 3.21 10x6/uL (4.20-6.10); RDW 20.5 % (11.5-14.5); WBC 12.3 10x3/uL (4.8-10.8)
[2019-02-10 06:51] LABS: ANION GAP 24.3 mmol/L (8-16); BILIRUBIN - TOTAL 0.63 mg/dL (0.2-1.3); CARBON DIOXIDE 15.5 mmol/L (21.0-32.0); CREATININE - SERUM 3.4 mg/dL (0.6-1.3); PHOSPHOROUS 5.4 mg/dL (2.5-4.9); POTASSIUM - SERUM 4.8 mmol/L (3.5-5.1); PROTEIN - SERUM 4.7 g/dL (6.4-8.2)
[2019-02-10 06:52] LABS: ALBUMIN 0.6 g/dL (3.4-5.0); CALCIUM 6.7 mg/dL (8.5-10.1); MAGNESIUM - SERUM 1.9 mg/dL (1.8-2.4)
[2019-02-10 07:21] LABS: LYMPHOCYTES 12 % (15-50); NEUTROPHILS 84 % (40-80); PLATELET ESTIMATE DECREASED
[2019-02-10 07:22] LABS: TOXIC GRANULATION 2+; VACUOLES 1+
--- NOTE | 2019-02-10 08:51 | NUR ---
PT TURNED AND VENT MOUTH CARE COMPLETE.GARNETT ROOM WORKER FOR DR SANTIAGO HERE ON ROUNDS.
[2019-02-10 09:42] LABS: APTT 76.8 SECONDS (22.8-39.4); D-DIMER-QUANTITATIVE 2.97 ug/mLFEU (0.20-0.54)
[2019-02-10 09:43] LABS: INR 7.02 (0.85-1.17); PROTIME 59.7 SECONDS (11.6-15.0)
--- NOTE | 2019-02-10 11:26 | NUR ---
CALLED [facility] PT/PTT/INR TO DR SANTIAGO'S JUAN A SANTA. NO NEW ORDERS AT PRESENT TIME.
--- NOTE | 2019-02-10 12:14 | NUR ---
UNIT OF PRBC STARTED.
--- NOTE | 2019-02-10 16:42 | NUR ---
BATH AND LINEN CHANGE COMPLETE.
--- NOTE | 2019-02-10 19:15 | NUR ---
SHIFT ASSESSMENT COMPLETED, CHANGES NOTED ON ABDOMEN, PATIENT EKG NOT PICKING UP ACCUARATELY, CHANGED ELECTRODES AND WIRES OUT. STILL INSUFFICIENT SIGNAL IN PROCESSING MODE. READS WHILE SUSPENDED ONLY, CHANGED OUT BOX TO MONITOR. NO CHANGES. NURSE IN VIEW OF IN ROOM MONITOR TO MONITOR CLOSELY DUE TO SUSPENDED PROCESSING ON CENTRAL MONITOR.
--- NOTE | 2019-02-10 20:30 | NUR ---
PATIENT HAVING A HARD TIME MAINTAINING O2 SATURATION - RT CALLED TO BEDSIDE - ABDOMEN SIGNIFICANTLY WORSENING - DARK MAROON FLUID COLLECTION UNDER THE SKIN ON ABDOMEN. LUNG MAXWELL
--- NOTE | 2019-02-10 21:16 | NUR ---
PAGED DR BRAR REGARDING PATIENT STATUS - AWAITING CALL BACK
--- NOTE | 2019-02-10 21:27 | NUR ---
ZONIA RETURNED CALL - NEW ORDERS FOR PAIN MEDICATION, UPDATED ON RESPIRATORY STATUS AND ABDOMEN. RT TO MANAGE VENT TO MAINTAIN 02 SATURATION NEEDED. STILL AWAITING ETHICS COMITTEE INVOLVEMENT WITH THIS PATIENT. - CPOC
--- NOTE | 2019-02-10 21:51 | NUR ---
PRN PAIN MEDICATION RECEIVED - PATIENT TACHYCARDIC AT THIS TIME, FACIAL GRIMACE NOTICE UPON REPOSITIONING
[2019-02-11] VITALS (85 sets, daily range): BP systolic 72–148; BP diastolic 54–96
--- NOTE | 2019-02-11 00:02 | NUR ---
PT O2 SAT MONITOR ALARMING - NOTIFIED RT JUAN ANTONYOC
--- NOTE | 2019-02-11 01:30 | NUR ---
VENT CHANGES NOTED AT THIS TIME WILL CONTINUE TO MONITOR
--- NOTE | 2019-02-11 01:31 | NUR ---
PT DESAT 83 THIS NURSE REPOSITION AND SUCTION - RT INFORMED AND AT BEDSIDE VENT CHANGES DONE AT THIS TIME
[2019-02-11 06:58] LABS: BILIRUBIN - TOTAL 0.69 mg/dL (0.2-1.3); CREATININE - SERUM 3.2 mg/dL (0.6-1.3); MAGNESIUM - SERUM 1.7 mg/dL (1.8-2.4); PHOSPHOROUS 4.8 mg/dL (2.5-4.9); POTASSIUM - SERUM 4.4 mmol/L (3.5-5.1); PROTEIN - SERUM 4.2 g/dL (6.4-8.2)
[2019-02-11 07:00] LABS: ANION GAP 21.5 mmol/L (8-16); CARBON DIOXIDE 19.9 mmol/L (21.0-32.0)
[2019-02-11 07:02] LABS: ALBUMIN 0.5 g/dL (3.4-5.0); CALCIUM 6.7 mg/dL (8.5-10.1)
[2019-02-11 07:08] LABS: HEMATOCRIT 24.9 % (42.0-54.0); HEMOGLOBIN 8.3 g/dL (13.5-17.5); MCH 26.3 pg (26.0-34.0); MCHC 33.3 g/dL (31.0-37.0); RBC 3.15 10x6/uL (4.20-6.10); RDW 19.6 % (11.5-14.5)
[2019-02-11 07:09] LABS: WBC 4.7 10x3/uL (4.8-10.8)
[2019-02-11 07:10] LABS: PLATELET COUNT 19 10x3/uL (130-400)
--- NOTE | 2019-02-11 07:15 | NUR ---
REPORT RECEIVED. ASSESSMENT COMPLETE PER FLOW SHEET. VSS. BOGDAN THAI MASSEUR AT BEDSIDE GIVEN UDPATE NEW ORDERS RECEIVED. WILL ADM.
[2019-02-11 08:24] LABS: EOSINOPHILS 3 % (0-7); LYMPHOCYTES 5 % (15-50); MONOCYTES 15 % (2-11); NEUTROPHILS 56 % (40-80); PLATELET ESTIMATE DECREASED
[2019-02-11 08:25] LABS: ANISOCYTOSIS OCC; CRENATED CELLS OCC; HYPOCHROMASIA OCC
--- NOTE | 2019-02-11 08:55 | NUR ---
NUTRITION F/U PT WITH RECENT AKA REMAINS ON VENT. PROCALAMINE @ 50 CC/HR PROVIDING ~300 KCAL WITH 36 GM PROTEIN PER DAY. WILL TRANSITION TO TPN TODAY UNLESS PT CAN START TRICKLE TUBE FEEDS. RD FOLLOWING
--- NOTE | 2019-02-11 09:00 | NUR ---
VENT ALARMING ORAL ENDOTRACH CARE ADM.
--- NOTE | 2019-02-11 11:15 | NUR ---
REASSESSMENT COMPLETE PER FLOW SHEET. VSS. NO NEW CHANGES WILL CONTINUE TO MNITOR
--- NOTE | 2019-02-11 11:40 | NUR ---
RUSSEL PUCKETT CALLED GIVEN UDPATE T ORDER RECEIVED FOR DNR STATUS DR CHEN GIVEN UDPATE VERIFIED BY 2 NURSES, DAMIR RN, AND ALIX RN.
--- NOTE | 2019-02-11 12:45 | NUR ---
DR CHEN AT BEDSIDE GIVEN UDPATE
--- NOTE | 2019-02-11 14:00 | NUR ---
COMPLETE BB LINEN CHANGE ADM. CHG BATH ADM. BUTTOCKS DRSG CHANGE ADM.
--- NOTE | 2019-02-11 15:15 | NUR ---
REASSESSMENT COMPLET EPER FLOW SHEET. VSS. NO NEW CHANGES WILL CONTINUE TO MONITOR
--- NOTE | 2019-02-11 19:14 | NUR ---
BEDSIDE SHIFT REPORT GIVEN BY DEPARTING RN. PT LAYING IN BED ON VENT. OGT NOTED. MULTIPLE WOUNDS NOTED AND CHARTED IN SKIN ASSESSMENT. RT SUBCLAVIAN CVL NOTED TO BE PATENT AND INFUSING MD ORDERED MEDS. SEE FLOWSHEET FOR DETAILS. SAFETY MEASURES IN PLACE. CBIR. SEE FLOWSHEET FOR DETAILS.
--- NOTE | 2019-02-11 21:19 | NUR ---
O2 SAT 80%. SUCTIONED. 2120 RT AT BEDSIDE CHANGING THE FIO2 TO 100%. VS STABLIZED.
--- NOTE | 2019-02-11 23:47 | NUR ---
REASSESSMENT COMPLETE. NO CHANGES NOTED IN PT CONDITION. REPOSITIONED. ORAL CARE PROVIDED. TOLERATED WELL. NO SS OF DISTRESS. SEE FLOWSHEET FOR DETAILS.
[2019-02-12] VITALS (24 sets, daily range): BP systolic 58–116; BP diastolic 38–70
--- NOTE | 2019-02-12 01:34 | NUR ---
REPOSITIONED. ORAL CARE PROVIDED. TOLERATED WELL.
--- NOTE | 2019-02-12 03:07 | NUR ---
REASSESSMENT COMPLETE. NO NEW CHANGES NOTED IN PT CONDITION. VSS. NO SS OF DISTRESS. REPOSITIONED. ORAL CARE PROVIDED. SAFETY MEASURES IN PLACE. CBIR.
[2019-02-12 05:08] LABS: APTT 98.9 SECONDS (22.8-39.4)
[2019-02-12 05:14] LABS: BASOPHILS 0 % (0-2); EOSINOPHILS 2.9 % (0-7); HEMATOCRIT 21.9 % (42.0-54.0); IMMATURE GRANULOCYTES 14.2 % (0-5); LYMPHOCYTES 9.1 % (15-50); MCH 26.3 pg (26.0-34.0); MCHC 33.3 g/dL (31.0-37.0); MCV 78.8 fL (80.0-100.0); MONOCYTES 3.3 % (2-11); NEUTROPHILS 70.5 % (40-80); RBC 2.78 10x6/uL (4.20-6.10); RDW 19.2 % (11.5-14.5)
[2019-02-12 05:15] LABS: WBC 2.7 10x3/uL (4.8-10.8)
[2019-02-12 05:17] LABS: HEMOGLOBIN 7.3 g/dL (13.5-17.5); INR 9.28 (0.85-1.17); PLATELET COUNT 11 10x3/uL (130-400); PROTIME 74.4 SECONDS (11.6-15.0)
[2019-02-12 05:26] LABS: ALBUMIN 0.6 g/dL (3.4-5.0); BILIRUBIN - TOTAL 0.85 mg/dL (0.2-1.3); CARBON DIOXIDE 24.7 mmol/L (21.0-32.0); CREATININE - SERUM 3.1 mg/dL (0.6-1.3); MAGNESIUM - SERUM 1.6 mg/dL (1.8-2.4); PHOSPHOROUS 4.4 mg/dL (2.5-4.9); POTASSIUM - SERUM 4.3 mmol/L (3.5-5.1); PROTEIN - SERUM 3.7 g/dL (6.4-8.2)
[2019-02-12 05:44] LABS: ANION GAP 17.6 mmol/L (8-16)
[2019-02-12 05:46] LABS: CALCIUM 6.1 mg/dL (8.5-10.1)
--- NOTE | 2019-02-12 07:00 | NUR ---
REPORT RECEIVED. ASSESSMENT COMPLETE PER FLOW SHEET. VSS. NO NEW CHANGES. ORAL CARE ADM. WILL CONTINUE TO MONITOR
--- NOTE | 2019-02-12 07:40 | NUR ---
BOGDAN VELAZCO AT BEDSIDE DR MEDINA AT BEDSIDE GIVEN UPDATE NEW ORDERS RECEIVED
--- NOTE | 2019-02-12 09:40 | NUR ---
DR FARIA AT BEDSIDE GIVEN UDPATE
--- NOTE | 2019-02-12 10:30 | NUR ---
ORTHO AT BEDSIDE GIVEN UDPAET
--- NOTE | 2019-02-12 11:20 | NUR ---
SPOKE WITH RUSSEL HOING CARE OVER THE PHONE DECISION MADE TO LEAVE INTUBATED AT THIS TIME AND "LET NATURE TAKE ITS COURSE" EXTENSIVE TEACHING DONE AT THIS TIME. FINAL DESCISION MADE TO REMAIN A DNR WITH NO LIFE SAVING MEDICATIONS BUT TO REMAIN ON VENT. STATED OKAY.
--- NOTE | 2019-02-12 12:30 | NUR ---
DR CHEN AT BEDSIDE GIVEN UDPATE
--- NOTE | 2019-02-12 13:36 | NUR ---
RESPIRATORY AT BEDSIDE. STATED PT RR 30 AT THIS TIME. PRN FENTANYL ADM FOR DISCOMFORT AND RR.
--- NOTE | 2019-02-12 15:13 | NUR ---
REASSESSMENT COMPLETE PER FLOW SHEET. VSS. NO NEW CHANGES. PT RESTING COMFORTABLY WILL CONTINUE TO MONITOR
--- NOTE | 2019-02-12 16:39 | MORECARE ---
CASE MANAGEMENT DISCHARGE SUMMARY PATIENT: CAROL VALVERDE UNIT: [id number] ADM DATE: 01/27/19 AGE: 68 : 48 SEX: M ROOM/BED: D.2308 AUTHOR: ARLYN,DOC PHYSICIAN: REFERRING PHYSICIAN: APRYL BELLE MD DATE OF SERVICE: 02/12/19 Discharge Plan Patient Name: CAROL VALVERDE Facility: [facility]:[place] : 1950 Planned Disposition: [facility] Facility Anticipated Discharge Date: Discharge Date: Expected LOS: Initial Reviewer: [email or web address] Initial Review Date: 01/28/2019 Generated: 02/12/19 5:38 pm Comments DCP- Discharge Planning Updated by [email or web address]: Gricelda Coto on 02/12/19 3:[address] CM notified that Michael Valverde (cousin) has made patient a DNR but he is not willing to extubate or discontinue pressors. CM will continue to follow and assist as needed with discharge planning/ needs. DCP- Discharge Planning Updated by [email or web address]: Gricelda Coto on 02/08/19 6:[address] CM received notice regarding LTACH placement at [facility] in [place]. Nursing staff had contacted facility and sent face sheet. Paradise Campos APN called CM in regards to a patient most likely needing to start hemodialysis in near future. Paradise asked if we should go before ethics committee in regards to patient poor prognosis and patient's cousin Michael wishes to keep patient a full code. KRISTAN was able to get in touch with Michael. KRISTAN gave Michael update on patients status. KRISTAN explained that patient is going into renal failure and he may need dialysis in near future. Michael gave consent that if patient needed dialysis and he would give consent for dialysis access placement. KRISTAN then asked about LTACH and Michael stated that he was alright with patient going to LTACH facility but he would like it in [facility] or [place], [place] if possible so he could see him. KRISTAN explained that she would check on availability. Michael still wants patient to remain a full code. CM will continue to follow and assist as needed with discharge planning / needs. Appended by Gricelda Coto on 02/08/2019 19:30 CDT: Dr. Parekh documented in chart that patient wasn't stable enough for hemodialysis and recommended palliative care. Negrito with [facility] stated that patient will need to have dialysis access and started on dialysis prior to admission to LTACH. DCP- Discharge Planning Updated by [id number]: Gricelda Coto on 02/06/19 10:[address] CM was able to get in touch with patient's cousin Michael Valverde [phone]. CM spoke to Michael about patient's condition and that Doctors are recommending patient have a Left Above Knee Amputation. Michael stated that he was willing to give consent for amputation but was not willing to make a change in patients code status. Michael stated that he had not spoken to patient in regards to what his wishes were in this situation. At this time Michael wishes to keep patient a full code. CM then turned phone over to Isabel Lazar RN to obtain consent. Michael requested for staff to call and give updates on patients condition. CM notified Maurizio Avendaño (ethics) that we have obtained consent from family for amputation. CM will continue to follow and assist as needed with discharge planning / needs. DCP- Discharge Planning Updated by [email or web address]: Rajni Tate on 02/02/19 10:[address] Patient Name: CAROL VALVERDE Admission Status: ER Accout number: [id number] Admission Date: 01-27-2019 : 1950 Admission Diagnosis:SEPSIS, UNSPECIFIED ORGANISM Attending: ALBERTO SANTIAGO Current LOS: 6 Anticipated DC Date: Planned Disposition: [facility] Facility Primary Insurance: MEDICARE PART A ONLY Discharge Planning Comments: CM EMAILED MAURIZIO AVENDAÑO AND BEN REGARDING THE CM CONSULT FOR ETHICS COMMITTEE INVOLVMENT FOR CONSENT FOR POSSIBLE AKA. CM WILL FOLLOW AND ASSIST NEEDED. Mechanical Maintenance Foreman: Rajni Tate DCP- Discharge Planning Updated by [email or web address]: Gricelda Coto on 01/28/19 2:[address] Patient Name: CAROL VALVERDE Admission Status: ER Accout number: [id number] Admission Date: 01-27-2019 : 1950 Admission Diagnosis: Attending: ALBERTO SANTIAGO Current LOS: 1 Anticipated DC Date: Planned Disposition: Nursing Facility TATE Cert Primary Insurance: MEDICARE PART A ONLY Discharge Planning Comments: CM attempted to meet with patient difficult to arouse and confused. Patient is a resident at [facility] [phone]. Patient unable to sign SAMANTA at this time. Patient plans at this time is return to the [facility] upon discharge. CM spoke with [facility] and they plan on him returning their facility upon discharge. The patient was in a Medicare bed prior to transferring to [facility]. CM will continue to follow and assist as needed with discharge planning /needs. Mechanical Maintenance Foreman: Gricelda Coto DCPIA - Discharge Planning Initial Assessment Updated by [id number]: Gricelda Coto on 01/28/19 3:03 pm * Is the patient Alert and Oriented? No * PCP Donell * Pharmacy [facility] * Preadmission Environment Fdc Fdc * ADLs Total Dependent * List name and contact numbers for known caregivers / representatives who currently or will assist patient after discharge: [facility]- [phone] * Verbal permission to speak to the caregivers and representatives has been obtained from the patient. N/A * Community resources currently utilized None * Additional services required to return to the preadmission environment? No * Can the patient safely return to the preadmission environment? Yes * Has this patient been hospitalized within the prior 30 days at any hospital? No Last DP export: 02/08/19 6:36 p Patient Name: CAROL VALVERDE Page [id number] at 1639 All edits/amendments must be made on the electronic document DICTATION DATE: 02/12/191637 LADIES' HAT TRIMMER: SIDDHARTHA 02/12/198 RPT#: [id number] DC DATE: STATUS: ADM IN [facility] [address] [place] [address] END OF REPORT
--- NOTE | 2019-02-12 17:30 | NUR ---
COMPLETE BATH AND LINEN CHANGE, DRSG TO BUTTOCK CHANGED, PT TOLERATED WELL
--- NOTE | 2019-02-12 19:00 | NUR ---
REPORT RECEIVED, CARE ASSUMED. PT IS LAYING IN BED INTUBATED AND UNRESPONSIVE AT THIS TIME. PT REPOSITIONED FOR COMFORT. ORAL CARE PERFORMED. INITIAL ASSESSMENT COMPLETED, SEE FLOWSHEET FOR DETAILS. NO FURTHER NEEDS NOTED AT THIS TIME. WILL CONTINUE TO MONITOR.
--- NOTE | 2019-02-12 21:00 | NUR ---
PT IS LAYING IN BED INTUBATED ON THE VENT. PT REPOSITIONED FOR COMFORT. ORAL CARE PERFORMED. PT HAS NO NEEDS NOTED AT THIS TIME. NO SIGNS OF ACUTE DISTRESS. WILL CONTINUE TO MONITOR.
--- NOTE | 2019-02-12 23:00 | NUR ---
REASSESSMENT COMPLETED, SEE FLOWSHEET FOR DETAILS. PT IS IN BED INTUBATED AT THIS TIME. PT REPOSITIONED FOR COMFORT. ORAL CARE PERFORMED. NO SIGNS OF ACUTE DISTRESS. WILL CONTINUE TO MONITOR.
[2019-02-13] VITALS (24 sets, daily range): BP systolic 51–74; BP diastolic 33–53
--- NOTE | 2019-02-13 01:00 | NUR ---
PT IS LAYING IN BED INTUBATED AT THIS TIME. PT REPOSITIONED FOR COMFORT. ORAL CARE PERFORMED. NO NEEDS NOTED. NO SIGNS OF ACUTE DISTRESS. WILL CONTINUE TO MONITOR.
--- NOTE | 2019-02-13 03:00 | NUR ---
REASSESSMENT COMPLETED, SEE FLOWSHEET FOR DETAILS. PT REPOSITONED FOR COMFORT. ORAL CARE PERFORMED. PT IS IN BED INTUBATED AND ON THE VENT. NO FURTHER NEEDS NOTED AT THIS TIME. WILL CONTINUE TO MONITOR.
--- NOTE | 2019-02-13 05:00 | NUR ---
PT IS IN BED INTUBATED AND ON THE VENT. PT REPOSITIONED FOR COMFORT. ORAL CARE PERFORMED. NO SIGNS OF ACUTE DISTRESS. WILL CONTINUE TO MONITOR.
--- NOTE | 2019-02-13 07:15 | NUR ---
REPORT RECEIVED ASSESSMENT COMPLETE PER FLOW SHEET. VSS. NO NEW CHANGES PT RESTING COMFORTABLY WILL CONTINUE TO MONITOR
--- NOTE | 2019-02-13 08:01 | NUR ---
NUTRITION F/U CHART REVIEWED, PT REMAINS ON VENT. PROCALAMINE BARBY'Kenji. RD FOLLOWING
--- NOTE | 2019-02-13 08:10 | NUR ---
DR MEDINA AT BEDSIDE GIVEN UDPATE. NO NEW ORDERS
--- NOTE | 2019-02-13 08:37 | NUR ---
BOGDAN SELENIUM PLANT OPERATOR AT BEDSIDE. GIVEN UDPATE. NEW ORDERS RECEIVED.
--- NOTE | 2019-02-13 09:20 | NUR ---
PT RESTING COMFORTABLY VSS NO NEW CHANGES WILL CONTINUE TO MONITOR
--- NOTE | 2019-02-13 10:45 | NUR ---
DR CHEN AT BEDSIDE GIVEN UDPATE
--- NOTE | 2019-02-13 11:15 | NUR ---
REASSESSMENT COMPLETE PER FLOW SHEET. VSS. NO NEW CAHNGES WILL CONTINUE TO MONITOR
--- NOTE | 2019-02-13 19:00 | NUR ---
REPORT RECEIVED, CARE ASSUMED. PT IS IN BED INTUBATED AND ON THE VENT. PT HAS SUPERVISOR REINFORCED STEEL PLACING INFUSING PER COMFORT CARE INSTRUCTIONS. INITIAL ASSESSMENT COMPLETED, SEE FLOWSHEET. NO SIGNS OF ACUTE DISTRESS NOTED AT THIS TIME. WILL CONTINUE TO MONITOR.
--- NOTE | 2019-02-13 21:00 | NUR ---
PT IS IN BED INTUBATED ON THE VENT. PT REPOSITIONED FOR COMFORT. ORAL CARE PERFORMED. PT'S BP IS VERY LOW, HR IS WNL, PULSE ARE UNPALPABLE AT THIS TIME, BUT THEY ARE PRESENT VIA DOPPLER. WILL CONTINUE TO MONITOR.
--- NOTE | 2019-02-13 23:00 | NUR ---
REASSESSMENT COMPLETED, SEE FLOWSHEET FOR DETAILS. PT IS INTUBATED ON THE VENT. NO ACUTE CHANGES NOTED AT THIS TIME. WILL CONTINUE TO MONITOR.
[2019-02-14] VITALS (7 sets, daily range): BP systolic 0–56; BP diastolic 0–40
--- NOTE | 2019-02-14 01:00 | NUR ---
PT IS IN BED INTUBATED AND ON THE VENT. PT REPOSTIONED FOR COMFORT. ORAL CARE PERFORMED. BP CONTINUES TO BE LOW AT THIS TIME. CONTINUEING TO MONITOR CLOSELY.
--- NOTE | 2019-02-14 03:00 | NUR ---
REASSESSMENT COMPLETED, SEE FLOWSHEET FOR DETAILS. PT IS IN BED INTUBATED AND ON THE VENT. NO ACUTE CHANGES NOTED AT THIS TIME. WILL CONTINUE TO MONITOR CLOSELY.
--- NOTE | 2019-02-14 05:00 | NUR ---
PT IS IN BED INTUBATED AND ON THE VENT. MONITOR IS PICKING UP A HR OF 76 AT THIS TIME, PULSES ARE NOT PALPABLE AT THIS TIME. DOPPLER IS CURRENTLY NOT AVAILABLE. MONITOR IS UNABLE TO SHEET FED PRINTER A BP, OR A SPO2. PT IS TAKING SPONTANOUS BREATHS OVER THE VENT WELL. WILL CONTINUE TO MONITOR CLOSELY.
--- NOTE | 2019-02-14 07:00 | NUR ---
SHIFT ASSESSMENT COMPLETED. PT CARE ASSUMED.MONITORS ON AND WORKING, AGONAL HEART RHYTHM NOTED ON MONITORS, BLOOD PRESSURE UNABLE TO BE OBTAINED, HEART SOUNDS FAINT, DISTANT, MUFFLED. PT IS DNR, AWARE OF SITUATION. WILL CONTINUE TO OBSERVE.
--- NOTE | 2019-02-14 09:00 | NUR ---
PULSE AND BLOOD PRESSURE UNOBTAINABLE, VENT SUPPORT ON, PHONE CALL MADE TO PRIMARY CARE DOCTOR.
--- NOTE | 2019-02-14 09:00 | NUR ---
SPOKE WITH FAMILY, RUSSEL PUCKETT AWARE OF PT. WILL CALL ME BACK WITH HOME ARRANGEMENTS.
--- NOTE | 2019-02-14 10:43 | NUR ---
DR JOHNS AT BEDSIDE TO PRONOUNCE OF PT. MONITORS AND TUBES REMOVED AT THIS TIME. PT BATHED AND CLEANED. POST MORTEM CARE DONE LINEN CHANGE COMPLETED. ANTHONY NOTIFIED, WILL CALL HOME.
--- NOTE | 2019-02-15 09:16 | MORECARE ---
CASE MANAGEMENT DISCHARGE SUMMARY PATIENT: CAROL VALVERDE UNIT: [id number] ADM DATE: 01/27/19 AGE: 68 : 48 SEX: M ROOM/BED: D.2308 AUTHOR: ARLYN,DOC PHYSICIAN: REFERRING PHYSICIAN: APRYL BELLE MD DATE OF SERVICE: 02/15/19 Discharge Plan Patient Name: CAROL VALVERDE Facility: [facility]:[place] : 1950 Planned Disposition: Care Home Facility Anticipated Discharge Date: Discharge Date: 02/14/2019 Expected LOS: Initial Reviewer: [email or web address] Initial Review Date: 01/28/2019 Generated: 02/15/19 10:15 am DCP- Discharge Planning Updated by [id number]: Gricelda Coto on 02/12/19 3:[address] CM notified that Michael Valverde (cousin) has made patient a DNR but he is not willing to extubate or discontinue pressors. CM will continue to follow and assist as needed with discharge planning/ needs. DCP- Discharge Planning Updated by [id number]: Gricelda Coto on 02/08/19 6:[address] CM received notice regarding LTACH placement at [facility] in [place]. Nursing staff had contacted facility and sent face sheet. Paradise Campos APN called CM in regards to a patient most likely needing to start hemodialysis in near future. Paradise asked if we should go before ethics committee in regards to patient poor prognosis and patient's cousin Michael wishes to keep patient a full code. KRISTAN was able to get in touch with Michael. KRISTAN gave Michael update on patients status. KRISTAN explained that patient is going into renal failure and he may need dialysis in near future. Michael gave consent that if patient needed dialysis and he would give consent for dialysis access placement. KRISTAN then asked about LTACH and Michael stated that he was alright with patient going to LTACH facility but he would like it in [facility] or [place], [place] if possible so he could see him. KRISTAN explained that she would check on availability. Michael still wants patient to remain a full code. CM will continue to follow and assist as needed with discharge planning / needs. Appended by Gricelda Coto on 02/08/2019 19:30 CDT: Dr. Parekh documented in chart that patient wasn't stable enough for hemodialysis and recommended palliative care. Negrito with [facility] stated that patient will need to have dialysis access and started on dialysis prior to admission to LTACH. DCP- Discharge Planning Updated by [email or web address]: Gricelda Coto on 02/06/19 10:[address] CM was able to get in touch with patient's cousin Michael Valverde [phone]. CM spoke to Michael about patient's condition and that Doctors are recommending patient have a Left Above Knee Amputation. Michael stated that he was willing to give consent for amputation but was not willing to make a change in patients code status. Michael stated that he had not spoken to patient in regards to what his wishes were in this situation. At this time Michael wishes to keep patient a full code. CM then turned phone over to Isabel Lazar RN to obtain consent. Michael requested for staff to call and give updates on patients condition. CM notified Maurizio Avendaño (ethics) that we have obtained consent from family for amputation. CM will continue to follow and assist as needed with discharge planning / needs. DCP- Discharge Planning Updated by [id number]: Rajni Tate on 02/02/19 10:[address] Patient Name: CAROL VALVERDE Admission Status: ER Accout number: [id number] Admission Date: 01-27-2019 : 1950 Admission Diagnosis:SEPSIS, UNSPECIFIED ORGANISM Attending: ALBERTO SANTIAGO Current LOS: 6 Anticipated DC Date: Planned Disposition: Care Home Facility Primary Insurance: MEDICARE PART A ONLY Discharge Planning Comments: CM EMAILED MAURIZIO AVENDAÑO AND BEN REGARDING THE CM CONSULT FOR ETHICS COMMITTEE INVOLVMENT FOR CONSENT FOR POSSIBLE AKA. CM WILL FOLLOW AND ASSIST NEEDED. Corporate Receptionist: Rajni Tate DCP- Discharge Planning Updated by [email or web address]: Gricelda Coto on 01/28/19 2:[address] Patient Name: CAROL VALVERDE Admission Status: ER Accout number: [id number] Admission Date: 01-27-2019 : 1950 Admission Diagnosis: Attending: ALBERTO SANTIAGO Current LOS: 1 Anticipated DC Date: Planned Disposition: Nursing Facility TATE Cert Primary Insurance: MEDICARE PART A ONLY Discharge Planning Comments: CM attempted to meet with patient difficult to arouse and confused. Patient is a resident at [facility] [phone]. Patient unable to sign SAMANTA at this time. Patient plans at this time is return to the [facility] upon discharge. CM spoke with [facility] and they plan on him returning their facility upon discharge. The patient was in a Medicare bed prior to transferring to [facility]. CM will continue to follow and assist as needed with discharge planning /needs. Corporate Receptionist: Gricelda Coto DCPIA - Discharge Planning Initial Assessment Updated by [email or web address]: Gricelda Coto on 01/28/19 3:03 pm * Is the patient Alert and Oriented? 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 N/A * Community resources currently utilized None * Additional services required to return to the preadmission environment? No * Can the patient safely return to the preadmission environment? Yes * Has this patient been hospitalized within the prior 30 days at any hospital? No Last DP export: 02/12/19 3:39 p Patient Name: CAROL VALVERDE Page 86277 at 0916 All edits/amendments must be made on the electronic document DICTATION DATE: 02/15/19914 WELDING MACHINE OPERATOR SUBMERGED ARC: [id number] 02/15/19914 RPT#: [id number] DC DATE:02/14/19 STATUS: DIS IN [facility] [address] [place] [address] END OF REPORT
--- NOTE | 2019-02-15 14:19 | MORECARE ---
CASE MANAGEMENT DISCHARGE SUMMARY PATIENT: CAROL VALVERDE UNIT: [id number] ADM DATE: 01/27/19 AGE: 68 : 48 SEX: M ROOM/BED: D.2308 AUTHOR: ARLYN,DOC PHYSICIAN: REFERRING PHYSICIAN: APRYL BELLE MD DATE OF SERVICE: 02/15/19 Discharge Plan Patient Name: ACROL VALVERDE Facility: [facility]:[place] : 1950 Planned Disposition: Nursing Home Facility Anticipated Discharge Date: Discharge Date: 02/14/2019 Expected LOS: Initial Reviewer: [email or web address] Initial Review Date: 01/28/2019 Generated: 02/15/19 3:19 pm Comments DCP- Discharge Planning Updated by [email or web address]: Gricelda Coto on 02/15/19 1:[address] CM called [facility] and notified them of patients . DCP- Discharge Planning Updated by [email or web address]: Gricelda Coto on 02/12/19 3:[address] CM notified that Michael Valverde (cousin) has made patient a DNR but he is not willing to extubate or discontinue pressors. CM will continue to follow and assist as needed with discharge planning/ needs. DCP- Discharge Planning Updated by [email or web address]: Gricelda Coto on 02/08/19 6:[address] CM received notice regarding LTACH placement at [facility] in [place]. Nursing staff had contacted facility and sent face sheet. Paradise Campos APN called KRISTAN in regards to a patient most likely needing to start hemodialysis in near future. Paradise asked if we should go before ethics committee in regards to patient poor prognosis and patient's cousin Michael wishes to keep patient a full code. KRISTAN was able to get in touch with Michael. KRISTAN gave Michael update on patients status. KRISTAN explained that patient is going into renal failure and he may need dialysis in near future. Michael gave consent that if patient needed dialysis and he would give consent for dialysis access placement. KRISTAN then asked about LTACH and Michael stated that he was alright with patient going to LTACH facility but he would like it in [facility] or [place], [place] if possible so he could see him. CM explained that she would check on availability. Michael still wants patient to remain a full code. CM will continue to follow and assist as needed with discharge planning / needs. Appended by Gricelda Coto on 02/08/2019 19:30 CDT: Dr. Parekh documented in chart that patient wasn't stable enough for hemodialysis and recommended palliative care. Negrito with [facility] stated that patient will need to have dialysis access and [facility] DCP- Discharge Planning Updated by [id number]: Gricelda Coto on 02/06/19 10:[address] CM was able to get in touch with patient's cousin Michael Valverde [phone]. CM spoke to Michael about patient's condition and that Doctors are recommending patient have a Left Above Knee Amputation. Michael stated that he was willing to give consent for amputation but was not willing to make a change in patients code status. Michael stated that he had not spoken to patient in regards to what his wishes were in this situation. At this time Michael wishes to keep patient a full code. KRISTAN then turned phone over to Isabel Lazar RN to obtain consent. Michael requested for staff to call and give updates on patients condition. CM notified Maurizio Avendaño (ethics) that we have obtained consent from family for amputation. CM will continue to follow and assist as needed with discharge planning / needs. DCP- Discharge Planning Updated by [id number]: Rajni Tate on 02/02/19 10:[address] Patient Name: CAROL VALVERDE Admission Status: ER Accout number: [id number] Admission Date: 01-27-2019 : 1950 Admission Diagnosis:SEPSIS, UNSPECIFIED ORGANISM Attending: ALBERTO SANTIAGO Current LOS: 6 Anticipated DC Date: Planned Disposition: Nursing Home Facility Primary Insurance: MEDICARE PART A ONLY Discharge Planning Comments: CM EMAILED MAURIZIO AVENDAÑO AND BEN REGARDING THE CM CONSULT FOR ETHICS COMMITTEE INVOLVMENT FOR CONSENT FOR POSSIBLE AKA. CM WILL FOLLOW AND ASSIST NEEDED. Wheel And Axle Inspector: Rajni Tate DCP- Discharge Planning Updated by [email or web address]: Gricelda Coto on 01/28/19 2:[address] Patient Name: CAROL VALVERDE Admission Status: ER Accout number: [id number] Admission Date: 01-27-2019 : 1950 Admission Diagnosis: Attending: ALBERTO SANTIAGO Current LOS: 1 Anticipated DC Date: Planned Disposition: Nursing Facility [facility] Primary Insurance: MEDICARE PART A ONLY Discharge Planning Comments: CM attempted to meet with patient difficult to arouse and confused. Patient is a resident at [facility] [phone]. Patient unable to sign SAMANTA at this time. Patient plans at this time is return to the [facility] upon discharge. CM spoke with [facility] and they plan on him returning their facility upon discharge. The patient was in a Medicare bed prior to transferring to [facility]. CM will continue to follow and assist as needed with discharge planning /needs. Wheel And Axle Inspector: Gricelda Coto DCPIA - Discharge Planning Initial Assessment Updated by [email or web address]: Gricelda Coto on 01/28/19 3:03 pm * Is the patient Alert and Oriented? No * PCP Donell * Pharmacy [facility] * Preadmission Environment [facility] * ADLs Total Dependent * List name and contact numbers for known caregivers / representatives who currently or will assist patient after discharge: [facility]- [phone] * Verbal permission to speak to the caregivers and representatives has been obtained from the patient. N/A * Community resources currently utilized None * Additional services required to return to the preadmission environment? No * Can the patient safely return to the preadmission environment? Yes * Has this patient been hospitalized within the prior 30 days at any hospital? No Last DP export: 02/15/19 8:16 a Patient Name: CAROL VALVERDE Page 23530 at 1419 All edits/amendments must be made on the electronic document DICTATION DATE: 02/15/191418 MEDICAL PHYSICIST: [email or web address] 02/15/19 1419 RPT#: [id number] DC DATE:02/14/19 STATUS: DIS IN [facility] [address] [place] [address] END OF REPORT
== END 2019-02-14 18:28 | DRG 853 ==
LOC: D.ER 21:35 → D.ICU 22:50 → D.MS 22:50 → D.ICU 02-04 09:16
PROVIDERS: Family Medicine; Internal Medicine Nephrology; Internal Medicine Pulmonary Disease; Legal Medicine; Student in an Organized Health Care Education/Training Program; ADMIT Emergency Medicine; ATTEND Emergency Medicine
PROC: 05H533Z Insertion of Infusion Device into Right Subclavian Vein, Percutaneous Approach (ICD-10-PCS; principal; 2019-01-31)
PROC: 0BH17EZ Insertion of Endotracheal Airway into Trachea, Via Natural or Artificial Opening (ICD-10-PCS; 2019-02-04)
PROC: 5A1955Z Respiratory Ventilation, Greater than 96 Consecutive Hours (ICD-10-PCS; 2019-02-04)
PROC: 0Y6D0Z3 Detachment at Left Upper Leg, Low, Open Approach (ICD-10-PCS; 2019-02-07)
DX: A41.9 Sepsis, unspecified organism (principal); R40.2124 Coma scale, eyes open, to pain, 24 hours or more after hospital admission; J96.00 Acute respiratory failure, unspecified whether with hypoxia or hypercapnia; R65.21 Severe sepsis with septic shock; G93.41 Metabolic encephalopathy; N17.0 Acute kidney failure with tubular necrosis; G82.20 Paraplegia, unspecified; N39.0 Urinary tract infection, site not specified; I96 Gangrene, not elsewhere classified; E87.2 Acidosis; E87.1 Hypo-osmolality and hyponatremia; Z66 Do not resuscitate; L89.159 Pressure ulcer of sacral region, unspecified stage; D72.829 Elevated white blood cell count, unspecified; F31.9 Bipolar disorder, unspecified; E11.9 Type 2 diabetes mellitus without complications; K21.9 Gastro-esophageal reflux disease without esophagitis; R40.2354 Coma scale, best motor response, localizes pain, 24 hours or more after hospital admission; R40.2244 Coma scale, best verbal response, confused conversation, 24 hours or more after hospital admission; B96.20 Unspecified Escherichia coli [E. coli] as the cause of diseases classified elsewhere; B96.5 Pseudomonas (aeruginosa) (mallei) (pseudomallei) as the cause of diseases classified elsewhere; I95.9 Hypotension, unspecified